=== PATIENT | male | born 1980 | race Caucasian/White ===

== ENCOUNTER 2020-05-16 12:34 | Outpatient (REF) | payer OTHER, SELFPAY | END 2020-05-16 12:35 | disposition home or self-care (01) | LOC: HO.LAB 12:34 | PROVIDERS: Visit Provider Internal Medicine | DX: Z20.828 Contact with and (suspected) exposure to other viral communicable diseases (principal) | CPT/HCPCS: C9803; U0003 ==

== ENCOUNTER 2020-07-26 16:13 | Emergency (ER) | payer OTHER, SELFPAY ==
--- NOTE | ~2020-07-26 | CT_ITS ---
EXAMINATION: CT ABDOMEN AND PELVIS WITHOUT CONTRAST CLINICAL INFORMATION: Left-sided abdominal pain and flank pain. COMPARISON: None TECHNIQUE: Multidetector volumetric imaging was performed from the superior aspect of the liver through the pubic symphysis. Sagittal and coronal reformatted images were obtained on the technologist's workstation. This CT examination was performed using dose optimization techniques as appropriate, variously including the following: *Automated exposure control *Adjustment of mA and/or kV according to patient size (this includes techniques or standardized protocols for targeted exams where dose is matched to indication/reason for exam; i.e. extremities or head) *Use of iterative reconstruction technique DLP: 533 mGy-cm FINDINGS: LUNG BASES: The visualized lung bases are unremarkable. LIVER, GALLBLADDER, AND BILIARY TREE: The liver is normal in size, shape, and attenuation. No focal hepatic lesion or biliary ductal dilatation is present. The gallbladder is unremarkable with no evidence of radiopaque gallstones, gallbladder wall thickening, or obvious pericholecystic inflammatory changes. PANCREAS: Unremarkable. A tiny faint jasmin of calcification is seen in the tail of the pancreas (3:24). No evidence of pancreatitis. SPLEEN: Unremarkable. Small 1 cm hypodensity noted in the spleen (3:23). ADRENAL GLANDS: Unremarkable. KIDNEYS AND URETERS: The kidneys are normal in size, shape, and attenuation. No hydronephrosis, hydroureter, or calculi seen. No perinephric stranding. BLADDER: Unremarkable. GASTROINTESTINAL TRACT: Diverticular changes are present in the colon. At the junction of the descending colon and sigmoid colon there is an area of thickening and pericolonic inflammatory changes consistent with acute diverticulitis. At the time of the 02/03/2019 study, similar findings were present in this area although it appears significantly worse on today's study. The small and large bowel are otherwise unremarkable. The appendix is unremarkable. ABDOMINAL WALL: No significant hernia is appreciated. LYMPH NODES: Normal. VASCULAR: Unremarkable. PELVIC VISCERA: Unremarkable. OSSEOUS STRUCTURES: Unremarkable. CT/CT abdomen pelvis wo con IMPRESSION: Recurrent uncomplicated diverticulitis at the junction of the sigmoid and descending colon. No free air or pericolonic fluid collections are seen. Other incidental findings as described above.
[2020-07-26 16:16] VITALS: BP 135/83; PULSE 63; RESP 18; TEMP 36.6; O2SAT 96; BMI 26.6
--- NOTE | 2020-07-26 16:43 | ED.ABDPAIN ---
HPI - Abdominal Pain General Chief Complaint: Abdominal Pain Stated Complaint: Abdominal pain/Flank pain Time Seen by Provider: 07/26/20 16:43 History of Present Illness HPI narrative: 40-year-old male who denies significant past medical history presents with complaint of left-sided abdomen and flank pain going on for past 3 days slightly and progressively getting worse with associated nausea but no vomiting. States also feels like not able to fully void due to the pain. He denies any hematuria or dysuria. No fever. No changes in stool caliber or rectal bleeding. MD elicited complaint: abdominal pain Pertinent past history: none Pain Consistency: constant Location: LLQ Severity: moderate Quality: aching Radiation: LUQ and L flank Migration to: L flank Exacerbating factors: nothing Relieving factors: nothing Associated symptoms: nausea Treatments prior to arrival: other (Motrin) Related Data Previous Rx's Medication Instructions Recorded ciprofloxacin HCl [Cipro] 500 mg PO BID 7 Days #14 tab 07/26/20 metronidazole [Flagyl] 500 mg PO BID 7 Days #14 tab 07/26/20 oxycodone 5 mg PO Q8H PRN 3 Days #10 tab 07/26/20 Allergies Allergy/AdvReac Type Severity Reaction Status Date / Time No Known Allergies Allergy Unverified 02/11/20 16:18 [No Known Allergies*] Review of Systems Review of Systems Constitutional: No Weight loss, No Fever, No Chills, No Night Sweats, No Fatigue, No Malaise ENT/Mouth: No Hearing loss, No Ear Pain, No Nasal Congestion, No Sinus Pain, No Hoarseness, No sore throat, No Rhinorrhea, No Swallowing Difficulty Eyes: No Eye Pain, No Swelling, No Redness, No Foreign Body, No Discharge, No Vision Changes Cardiovascular: No Chest Pain, No SOB, No Dyspnea on Exertion, No Orthopnea, No Edema, No Palpitations Respiratory: No Cough, No Sputum, No Wheezing, No Smoke Exposure, No Dyspnea Gastrointestinal: As noted per HPI, No Hematochezia, No Melena Genitourinary: No Dysuria, No Urinary Frequency, No Hematuria, No Urinary Incontinence, No Urgency, No Flank Pain, No Urinary Flow Changes, No Hesitancy Musculoskeletal: No joint pain, No Myalgias, No Joint Swelling Skin: No Skin Lesions, No rash Neuro: No Weakness, No Numbness, No Paresthesias, No Loss of Consciousness, No Dizziness, No Headache Psych: No Social Issues Heme/Lymph: No Bruising, No Bleeding,No Lymphadenopathy Endocrine: No Polyuria, No Polydipsia, No Temperature Intolerance Yes all other systems are reviewed and are negative Physical Exam Vital Signs: Vital Signs: Last Vital Signs Temp 97.9 F 07/26/20 16:16 Pulse 63 07/26/20 16:16 Resp 18 07/26/20 16:16 BP 135/83 07/26/20 16:16 Pulse Ox 96 07/26/20 16:16 Body Mass Index 26.6 Review Const: General: cooperative, healthy appearing, comfortable and acute distress (Appears in pain) mild; No intoxicated appearing Nutritional Appearance: average body habitus Orientation/consciousness: patient oriented x3 HENMT: Head: Yes normal to inspection Ears: hearing grossly normal bilaterally Eyes: General: appearance normal, both eyes and all related structures Visual Henderson: normal visual henderson by confrontation Neck: Neck: Yes normal visual inspection, No positive Brudzinski's sign, No positive Kernig's sign and No tender Thyroid: Thyroid normal Chest: Chest palpation & inspection: normal inspection of the chest Resp: Effort & Inspection: normal respiratory effort Auscultation: clear to auscultation bilaterally Cardio: Jugular venous distension: no JVD Rhythm: regular rhythm Heart sounds: S1 normal heart sound present and S2 normal heart sound present GI: Inspection: Yes normal to inspection Palpation (GI): Soft to palpation Percussion: Yes normal to percussion Auscultation: normal bowel sounds : General: Yes no CVA tenderness Back/Spine/Pelvis: Back: no CVA tenderness Skin: General skin exam: no rashes or lesions noted Neuro: General: patient oriented x3 Extrem: General: Yes normal to inspection MDM - Abdominal Pain MDM Narrative Medical decision making narrative: Labs overall stable CT of the abdomen pelvis shows diverticular disease without evidence of abscess or perforation. Feels much comfortable now minimal pain. Vitals stable. Abdominal exam without evidence peritonitis. Will discharge home with antibiotic, pain medicine and GI follow-up. He feels comfortable plan. Stable for discharge. Differential Diagnosis Differential diagnosis: Likely abdominal pain, calculus of kidney, diverticulitis and renal colic; Unlikely aortic dissection, acute appendicitis, bowel perforation, constipation, endometriosis, gastroenteritis, gastritis, mesenteric ischemia and small bowel obstruction Medical Records Attestation: I reviewed the patient's medical records. Medical records narrative: There is no access to hold the EMR on this patient for some reason the system will allow access. After receiving the CT scan results which read recurrent uncomplicated diverticulitis I asked him if you had this before again and he said now he remembers that he has similar like this a year ago so. Lab Data Attestation: I reviewed the patient's lab results. Result diagrams: 07/26/20 17:08 07/26/20 17:08 Labs: Lab Results 07/26/20 07/26/20 07/26/20 Range/Units 17:08 17:08 18:53 WBC 8.7 (4.8-10.8) X10*3/uL RBC 5.42 (4.60-5.80) X10*6/uL Hgb 16.4 (14.0-18.0) g/dl Hct 50.0 (42-52) % MCV 92.3 (80-98) fL MCH 30.3 (27.0-33.0) pg MCHC 32.8 (31.0-36.0) g/dl RDW 11.9 (11.0-16.0) % Plt Count 270 (160-400) X10*3/uL MPV 9.3 L (9.4-12.4) fL Immature Gran % (Auto) 0.2 (0.0-0.4) % Neut % (Auto) 76.2 H (45-73) % Lymph % (Auto) 15.5 L (20-40) % Cameron % (Auto) 6.9 (2-11) % Eos % (Auto) 1.0 (0-4) % Baso % (Auto) 0.2 (0-2) % Lymph # (Auto) 1.4 (1.2-4.9) X10*3/uL Cameron # (Auto) 0.6 (0.1-1.2) X10*3/uL Eos # (Auto) 0.1 (0.0-0.4) X10*3/uL Baso # (Auto) 0.0 (0.0-0.2) X10*3/uL Abs Immat Gran (auto) 0.02 (0.00-0.03) X10*3/uL Absolute Neuts (auto) 6.6 (2.0-8.3) X10*3/uL Absolute Nucleated RBC 0.000 (0.0-0.012) X10*3/uL Nucleated RBC % (auto) 0.0 (0.0-0.2) /100WBC Sodium 140 (135-145) mmol/L Potassium 4.4 (3.3-5.1) mmol/L Chloride 104 (96-108) mmol/L Carbon Dioxide 28 (22-29) mmol/L Anion Gap 12 (12-20) BUN 8 L (9-16) mg/dL Creatinine 1.14 (0.5-1.4) mg/dL Estim Creat Clear Calc 85.2 Estimated GFR > 60 Random Glucose 99 (60-115) mg/dL Calcium 9.1 (8.4-10.2) mg/dL Total Bilirubin 1.0 (0.0-1.0) mg/dL AST 34 (5-37) U/L ALT 34 (0-40) U/L Alkaline Phosphatase 84 (39-117) U/L Total Protein 7.1 (6.5-8.0) g/dL Albumin 4.2 (3.5-5.0) g/dL Urine Color YELLOW Urine Appearance CLEAR Urine pH 7.0 (5.0-8.0) Ur Specific [place] 1.015 (1.005-1.025) Urine Protein NEG (NEG-TRACE) MG/DL Urine Glucose (UA) NEG (NEG) MG/DL Urine Ketones NEG (NEG) MG/DL Urine Blood NEG (NEG) Urine Nitrite NEG (NEG) Ur Leukocyte Esterase NEG (NEG) Urine RBC 0-2 (0) /HPF Urine WBC 0-2 (0-4) /HPF Ur Squamous Epith Cells TRACE /LPF Urine Bacteria TRACE /LPF Discharge Plan Discharge Clinical Impression: Diverticulitis Patient Disposition: Home, Self-Care Instructions: Diverticulitis (ED) Prescriptions: New metronidazole [Flagyl] 500 mg tablet 500 mg PO BID 7 Days Qty: 14 RF: 0 ciprofloxacin HCl [Cipro] 500 mg tablet 500 mg PO BID 7 Days Qty: 14 RF: 0 oxycodone 5 mg tablet 5 mg PO Q8H PRN (Reason: pain) 3 Days Qty: 10 RF: 0 Referrals: Tsering Huston MD [Physician] - 1 week Interventions: ED Discharge Assessment Last Done: 07/26/20 20:21 Discharge Date/Time: 07/26/20 20:21 [facility] Past Medical History Medical History (Updated 07/27/20 @ 00:00 by Background Daemon) No known health problems Social History Social History Advance Directives: No Advance Directives Information Provided: Yes
[2020-07-26] MEDS: 0.9 % Sodium Chloride 1,000 ML 999 ML IV (17:09)
[2020-07-26 17:14] LABS: Basophils Percent Auto 0.2 % (0-2); Eosinophils Absolute Auto 0.1 X10*3/uL (0.0-0.4); Hemoglobin 16.4 g/dl (14.0-18.0); Imm Gran Abs Auto 0.02 X10*3/uL (0.00-0.03); Imm Gran Pct Auto 0.2 % (0.0-0.4); Lymphocytes Absolute Auto 1.4 X10*3/uL (1.2-4.9); Lymphocytes Percent Auto 15.5 % (20-40); MANUAL DIFF FLAG NO; Mean Corpuscular HGB Conc 32.8 g/dl (31.0-36.0); Mean Corpuscular Hemoglobin 30.3 pg (27.0-33.0); Mean Corpuscular Volume 92.3 fL (80-98); Mean Platelet Volume 9.3 fL (9.4-12.4); Monocytes Absolute Auto 0.6 X10*3/uL (0.1-1.2); Monocytes Percent Auto 6.9 % (2-11); Neutrophils Absolute Auto 6.6 X10*3/uL (2.0-8.3); Neutrophils Percent Auto 76.2 % (45-73); Platelet Count 270 X10*3/uL (160-400); Red Blood Count 5.42 X10*6/uL (4.60-5.80); Red Cell Distribution Width 11.9 % (11.0-16.0); White Blood Count 8.7 X10*3/uL (4.8-10.8)
[2020-07-26 17:49] LABS: Alanine Aminotransferase 34 U/L (0-40); Albumin Level 4.2 g/dL (3.5-5.0); Alkaline Phosphatase 84 U/L (39-117); Anion Gap 12 (12-20); Aspartate Amino Transferase 34 U/L (5-37); Blood Urea Nitrogen 8 mg/dL (9-16); Calcium 9.1 mg/dL (8.4-10.2); Carbon Dioxide 28 mmol/L (22-29); Chloride 104 mmol/L (96-108); Creatinine Clr Calc Pharmacy 85.2; Estimated Glomerular Filt Rate > 60; Glucose Random 99 mg/dL (60-115); Potassium 4.4 mmol/L (3.3-5.1); Sodium 140 mmol/L (135-145); Total Protein 7.1 g/dL (6.5-8.0)
[2020-07-26 19:13] LABS: Glucose Urine UA NEG (NEG); Leukocyte Esterase Urine NEG (NEG); Nitrite Urine NEG (NEG); Specific Gravity - Urine 1.015 (1.005-1.025); Urine Blood NEG (NEG); Urine Ketones NEG (NEG); Urine Protein NEG (NEG-TRACE)
[2020-07-26 19:24] LABS: Appearance Urine CLEAR; Bacteria Urine TRACE /LPF; Color Urine YELLOW; RBC Urine 0-2 /HPF (0); Squamous Epithelial Cell Urine TRACE /LPF; WBC Urine 0-2 /HPF (0-4)
== END 2020-07-26 20:21 | disposition home or self-care (01) ==
PROVIDERS: Nurse Practitioner Primary Care; Emergency Provider Emergency Medicine; PCP Internal Medicine
DX: K57.32 Diverticulitis of large intestine without perforation or abscess without bleeding (principal); R10.12 Left upper quadrant pain; Z79.899 Other long term (current) drug therapy
CPT/HCPCS: 36415; 74176; 80053; 81001; 85025; 96360; 99283; 99284

== ENCOUNTER 2020-08-24 10:46 | Outpatient (REF) | payer OTHER, SELFPAY ==
[2020-08-24 13:19] LABS: SARS COV2 PCR INHOUSE NEGATIVE (Negative)
== END 2020-08-24 10:47 | disposition home or self-care (01) ==
LOC: HO.LAB 10:46
PROVIDERS: Visit Provider Internal Medicine
DX: Z20.822 Contact with and (suspected) exposure to COVID-19 (principal)
CPT/HCPCS: C9803; U0003

== ENCOUNTER 2021-02-08 09:21 | Outpatient (REF) | payer OTHER, SELFPAY ==
[2021-02-08 10:09] LABS: MANUAL DIFF FLAG NO
[2021-02-08 10:11] LABS: Basophils Percent Auto 0.3 % (0-2); Eosinophils Absolute Auto 0.2 X10*3/uL (0.0-0.4); Eosinophils Percent Auto 3.1 % (0-4); Hematocrit 46.3 % (42-52); Hemoglobin 15.3 g/dl (14.0-18.0); Imm Gran Abs Auto 0.02 X10*3/uL (0.00-0.03); Imm Gran Pct Auto 0.3 % (0.0-0.4); Lymphocytes Absolute Auto 1.9 X10*3/uL (1.2-4.9); Lymphocytes Percent Auto 30.7 % (20-40); Mean Corpuscular Volume 90.8 fL (80-98); Mean Platelet Volume 9.6 fL (9.4-12.4); Monocytes Absolute Auto 0.5 X10*3/uL (0.1-1.2); Monocytes Percent Auto 8.8 % (2-11); Neutrophils Absolute Auto 3.5 X10*3/uL (2.0-8.3); Neutrophils Percent Auto 56.8 % (45-73); Platelet Count 262 X10*3/uL (160-400); Red Cell Distribution Width 11.6 % (11.0-16.0); White Blood Count 6.2 X10*3/uL (4.8-10.8)
[2021-02-08 10:40] LABS: Alanine Aminotransferase 31 U/L (0-40); Albumin Level 4.4 g/dL (3.5-5.0); Alkaline Phosphatase 53 U/L (39-117); Anion Gap 14 (12-20); Aspartate Amino Transferase 25 U/L (5-37); Bilirubin Total 0.9 mg/dL (0.0-1.0); Blood Urea Nitrogen 11 mg/dL (9-16); Calcium 9.5 mg/dL (8.4-10.2); Carbon Dioxide 27 mmol/L (22-29); Chloride 106 mmol/L (96-108); Cholesterol 197 mg/dL; Estimated Glomerular Filt Rate > 60; Glucose Fasting 91 mg/dL (60-99); HDL Cholesterol 40 mg/dL; LDL Cholesterol Calculated 134 mg/dl; Potassium 4.2 mmol/L (3.3-5.1); Sodium 143 mmol/L (135-145); Total Protein 7.2 g/dL (6.5-8.0); Triglycerides 117 mg/dL
[2021-02-08 11:04] LABS: Thyroid Stimulating Hormone 2.64 uIU/mL (0.32-4.0)
== END 2021-02-08 09:22 | disposition home or self-care (01) ==
LOC: HO.LAB 09:21
PROVIDERS: PCP Internal Medicine; Visit Provider Internal Medicine
DX: Z00.00 Encounter for general adult medical examination without abnormal findings (principal); E11.9 Type 2 diabetes mellitus without complications; E03.9 Hypothyroidism, unspecified
CPT/HCPCS: 36415; 80053; 80061; 84443; 85025

== ENCOUNTER 2021-03-15 08:06 | Emergency (ER) | payer OTHER, SELFPAY ==
--- NOTE | ~2021-03-15 | CT_ITS ---
EXAMINATION: CT ABDOMEN AND PELVIS WITH CONTRAST CLINICAL INFORMATION: Left lower quadrant pain. History of diverticulitis. COMPARISON: CT abdomen and pelvis from 07/26/2020 TECHNIQUE: Multidetector volumetric images were obtained from the superior aspect of the liver through the pubic symphysis following administration 85 mL of Omnipaque 350 intravenous contrast. Sagittal and coronal reformatted images were obtained on the technologist's workstation. Oral contrast: No This CT examination was performed using dose optimization techniques as appropriate, variously including the following: *Automated exposure control *Adjustment of mA and/or kV according to patient size (this includes techniques or standardized protocols for targeted exams where dose is matched to indication/reason for exam; i.e. extremities or head) *Use of iterative reconstruction technique DLP: 562 mGy-cm FINDINGS: LUNG BASES: Normal. No pulmonary consolidation or pleural effusion at either lung base. LIVER: The liver has normal size, shape, and attenuation. No evidence of liver mass. GALLBLADDER AND BILIARY TREE: Gallbladder is without radiopaque stones, wall thickening or pericholecystic fluid. No bile duct dilatation. PANCREAS: Normal. No edema, pancreatic ductal dilatation or mass. SPLEEN: Normal. ADRENAL GLANDS: Normal. KIDNEYS AND URETERS: The kidneys have normal size and cortical thickness. No solid mass or perinephric fluid collection. No urolithiasis or hydroureteronephrosis. BLADDER: Normal. No calculi or wall thickening. BOWEL AND PERITONEUM: Stomach and small bowel are unremarkable. The appendix is normal. Again noted is diverticulosis of the colon. There is a short segment of wall thickening and fat stranding of the proximal sigmoid colon consistent with acute diverticulitis. This region of bowel inflammation corresponds to the site of diverticulitis observed on 07/26/2020. No bowel perforation or abscess. ABDOMINAL WALL: Unremarkable. VASCULATURE: Unremarkable. LYMPH NODES: No pathologic sized lymph nodes in the abdomen or pelvis. No inguinal lymphadenopathy. PELVIC VISCERA: Prostate land and seminal vesicles are unremarkable. Trace free fluid is present within the left pelvis. SKELETAL: Unremarkable. CT/CT abdomen pelvis w con IMPRESSION: There is recurrent diverticulitis of the proximal sigmoid colon. No evidence of bowel perforation or abscess. No bowel obstruction.
[2021-03-15 08:18] VITALS: BP 138/70; PULSE 73; RESP 18; TEMP 36.6; O2SAT 97; BMI 29.5
--- NOTE | 2021-03-15 08:33 | ED_ITS ---
HPI - Abdominal Pain General Chief Complaint: Abdominal Pain Stated Complaint: ABD PAIN Time Seen by Provider: 03/15/21 08:20 Source: patient Mode of arrival: ambulatory Limitations: no limitations History of Present Illness HPI narrative: 40-year-old male who presents emergency department for evaluation of abdominal pain. States the pain came on suddenly at 4:00 a.m. and woke him from sleep. States the pain is a pressure-like pain and the pain has been waxing and waning in intensity and is 10/10 at its worst. The patient points to his left lower quadrant when asked to localize the pain. States that he had similar pain in July of 2020 and he was diagnosed with diverticulitis at that time and treated with Cipro and Flagyl. The patient states his last bowel movement was 2 days prior. He denied frequency, urgency or dysuria. He denied fever, chills, nausea or vomiting. He states that his pain is currently 10/10 in the emergency department. Related Data Previous Rx's Medication Instructions Recorded levofloxacin 500 mg tablet 500 mg PO DAILY 10 Days #10 tab 03/15/21 metronidazole 500 mg tablet 500 mg PO TID 10 Days #30 tab 03/15/21 Allergies Allergy/AdvReac Type Severity Reaction Status Date / Time No Known Allergies Allergy Verified 02/03/21 13:00 [No Known Allergies*] Review of Systems Review of Systems Yes all other systems are reviewed and are negative Physical Exam Vital Signs: Vital Signs: Last Vital Signs Temp 97.6 F 03/15/21 11:03 Pulse 56 03/15/21 11:03 Resp 18 03/15/21 11:03 BP 125/70 03/15/21 11:03 Pulse Ox 95 03/15/21 11:03 Body Mass Index 29.5 Const: General: cooperative and no acute distress Orientation/consciousness: oriented to person and oriented to place Limitations: no limitations HENMT: Head: Yes normal to inspection, Yes normocephalic and Yes atraumatic Ears: external ears normal General nose exam: Normal external nose present Face and sinus: Yes normal facial exam Mouth: Normal oral and palatal mucosa present Throat: Yes posterior oropharynx normal Eyes: General: appearance normal, both eyes and all related structures Pupils: Equal, round and reactive pupils present Neck: Neck: Yes normal visual inspection, Yes no lymphadenopathy, Yes trachea midline and Yes supple Chest: Chest palpation & inspection: normal inspection of the chest and normal palpation of entire chest wall Resp: Effort & Inspection: normal respiratory effort and able to speak in complete sentences Auscultation: clear to auscultation bilaterally Cardio: Rate: regular rate Rhythm: regular rhythm Heart sounds: S1 normal heart sound present, S2 normal heart sound present and no murmurs GI: Inspection: Yes normal to inspection Palpation (GI): Soft to palpation, Tenderness to palpation present (GI) in the LUQ (Moderate to severe) and no guarding Auscultation: normal bowel sounds : General: Yes no CVA tenderness Back/Spine/Pelvis: Back: no CVA tenderness Skin: General skin exam: no rashes or lesions noted Neuro: General: oriented to person and oriented to place Cranial nerves: Yes CN's II-XII intact bilaterally and Yes Equal, round and reactive pupils present Cognition (Neuro): normal cognition Motor exam (neuro): 5/5 motor strength present throughout Extrem: General: Yes normal to inspection Psych: Appearance: grossly normal Speech and movement: Normal speech and movement present Affect: normal affect Attitude: cooperative Thought process: Normal thought process present Thought content: Normal thought content present Course Course Course Narrative: 40-year-old male who presents emergency department for evaluation of sudden onset of left lower quadrant abdominal pain that occurred at 4:00 a.m. and woke him up from sleep. The pain is been a constant pain which waxes and wanes in intensity and pain is currently 10/10 on presentation to the emergency department. Patient had similar pain in July of 2020 and was diagnosed with diverticulitis at that time. The patient's vital signs were normal. The patient had moderate to severe left lower quadrant tenderness. Concerned that he may have diverticulitis verses a perforation. I ordered the following workup on the patient: CBC, CMP, lipase, lactate, urinalysis. CT scan of the abdomen pelvis with IV contrast. Patient's pain was treated with morphine 4 mg IV and Zofran 4 mg IV. Is also ordered to get normal saline x1 L. 1238: The patient initially got some improvement with his IV morphine but his pain is returned. Patient was ordered to get Toradol 30 mg IV and Zofran 4 mg IV. Patient's laboratory evaluation was unremarkable, COVID-[address] scan of the abdomen pelvis with IV contrast did reveal uncomplicated sigmoid diverticulitis. The patient was given Levaquin 500 mg orally and metronidazole 500 mg orally. Patient is given prescription for Levaquin 500 mg once a day for 10 days and metronidazole 5 mg 3 times a day for 10 days. He is advised to take Tylenol and ibuprofen for pain. He was given verbal and printed instructions and discharged home MDM - Abdominal Pain Lab Data Result diagrams: 03/15/21 08:40 03/15/21 09:06 Labs: Lab Results 03/15/21 03/15/21 03/15/21 Range/Units 08:40 08:40 09:06 WBC 7.6 (4.8-10.8) X10*3/uL RBC 4.93 (4.60-5.80) X10*6/uL Hgb 15.1 (14.0-18.0) g/dl Hct 44.9 (42-52) % MCV 91.1 (80-98) fL MCH 30.6 (27.0-33.0) pg MCHC 33.6 (31.0-36.0) g/dl RDW 11.8 (11.0-16.0) % Plt Count 252 (160-400) X10*3/uL MPV 9.1 L (9.4-12.4) fL Immature Gran % (Auto) 0.4 (0.0-0.4) % Neut % (Auto) 65.9 (45-73) % Lymph % (Auto) 22.2 (20-40) % Barnes % (Auto) 9.5 (2-11) % Eos % (Auto) 1.7 (0-4) % Baso % (Auto) 0.3 (0-2) % Lymph # (Auto) 1.7 (1.2-4.9) X10*3/uL Barnes # (Auto) 0.7 (0.1-1.2) X10*3/uL Eos # (Auto) 0.1 (0.0-0.4) X10*3/uL Baso # (Auto) 0.0 (0.0-0.2) X10*3/uL Abs Immat Gran (auto) 0.03 (0.00-0.03) X10*3/uL Absolute Neuts (auto) 5.0 (2.0-8.3) X10*3/uL Absolute Nucleated RBC 0.000 (0.0-0.012) X10*3/uL Nucleated RBC % (auto) 0.0 (0.0-0.2) /100WBC Sodium 140 (135-145) mmol/L Potassium 4.1 (3.3-5.1) mmol/L Chloride 106 (96-108) mmol/L Carbon Dioxide 27 (22-29) mmol/L Anion Gap 11 L (12-20) BUN 7 L (9-16) mg/dL Creatinine 1.13 (0.5-1.4) mg/dL Estim Creat Clear Calc 95.7 Estimated GFR > 60 Random Glucose 106 (60-115) mg/dL Lactic Acid 0.9 (0.5-2.0) mmol/L Calcium 8.7 D (8.4-10.2) mg/dL Total Bilirubin 1.4 H (0.0-1.0) mg/dL AST 24 (5-37) U/L ALT 29 (0-40) U/L Alkaline Phosphatase 70 D (39-117) U/L Total Protein 6.5 (6.5-8.0) g/dL Albumin 4.0 (3.5-5.0) g/dL Lipase 41 (8-78) U/L Urine Color Urine Appearance Urine pH (5.0-8.0) Ur Specific [place] (1.005-1.025) Urine Protein (NEG-TRACE) MG/DL Urine Glucose (UA) (NEG) MG/DL Urine Ketones (NEG) MG/DL Urine Blood (NEG) Urine Nitrite (NEG) Ur Leukocyte Esterase (NEG) 03/15/21 Range/Units 10:59 WBC (4.8-10.8) X10*3/uL RBC (4.60-5.80) X10*6/uL Hgb (14.0-18.0) g/dl Hct (42-52) % MCV (80-98) fL MCH (27.0-33.0) pg MCHC (31.0-36.0) g/dl RDW (11.0-16.0) % Plt Count (160-400) X10*3/uL MPV (9.4-12.4) fL Immature Gran % (Auto) (0.0-0.4) % Neut % (Auto) (45-73) % Lymph % (Auto) (20-40) % Barnes % (Auto) (2-11) % Eos % (Auto) (0-4) % Baso % (Auto) (0-2) % Lymph # (Auto) (1.2-4.9) X10*3/uL Barnes # (Auto) (0.1-1.2) X10*3/uL Eos # (Auto) (0.0-0.4) X10*3/uL Baso # (Auto) (0.0-0.2) X10*3/uL Abs Immat Gran (auto) (0.00-0.03) X10*3/uL Absolute Neuts (auto) (2.0-8.3) X10*3/uL Absolute Nucleated RBC (0.0-0.012) X10*3/uL Nucleated RBC % (auto) (0.0-0.2) /100WBC Sodium (135-145) mmol/L Potassium (3.3-5.1) mmol/L Chloride (96-108) mmol/L Carbon Dioxide (22-29) mmol/L Anion Gap (12-20) BUN (9-16) mg/dL Creatinine (0.5-1.4) mg/dL Estim Creat Clear Calc Estimated GFR Random Glucose (60-115) mg/dL Lactic Acid (0.5-2.0) mmol/L Calcium (8.4-10.2) mg/dL Total Bilirubin (0.0-1.0) mg/dL AST (5-37) U/L ALT (0-40) U/L Alkaline Phosphatase (39-117) U/L Total Protein (6.5-8.0) g/dL Albumin (3.5-5.0) g/dL Lipase (8-78) U/L Urine Color YELLOW Urine Appearance CLEAR Urine pH 6.0 (5.0-8.0) Ur Specific [place] <= 1.005 (1.005-1.025) Urine Protein NEG (NEG-TRACE) MG/DL Urine Glucose (UA) NEG (NEG) MG/DL Urine Ketones NEG (NEG) MG/DL Urine Blood NEG (NEG) Urine Nitrite NEG (NEG) Ur Leukocyte Esterase NEG (NEG) Discharge Plan Discharge Clinical Impression: Diverticulitis Patient Disposition: Home, Self-Care Instructions: Diverticulitis (ED) Additional Instructions: Your blood work was unremarkable. The CT scan is consistent with diverticulitis of the left side of your colon (sigmoid colon) Take Levaquin (levofloxacin) 500 mg pills, 1 pill once a day for 10 days. Your given a dose here in the emergency department, take your next dose tomorrow at noon time. Take Flagyl (metronidazole) 500 mg pills, take 1 pill 3 times a day (every 6 hours while you are awake) for 10 days. Take ibuprofen 200 mg pills, 3 pills every 6 hours as needed for pain. Take Tylenol (acetaminophen) 500 mg pills, 2 pills every 4 to 6 hours as needed for pain. Follow-up with your doctor in 2 days. Please return to the emergency department if your symptoms get worse or if you develop any symptoms that are concerning to you. Prescriptions: New metronidazole 500 mg tablet 500 mg PO TID 10 Days Qty: 30 RF: 0 levofloxacin 500 mg tablet 500 mg PO DAILY 10 Days Qty: 10 RF: 0 PMFSH Past Medical History PMFSH Narrative: Past medical history: See below, patient also has history of diverticulitis diagnosed 07/2020. Social history: The patient states that he smokes cigarettes on the weekends only media smoked for 25 years. The patient states that he drinks alcohol only on the weekends. He states that he drinks 24 beers over a weekend. He denies drug use. Medical History Alcohol abuse Depression No known health problems Surgical History History of left knee surgery History of umbilical hernia repair Family History Family History Mother Mental health disorder Substance use disorder Father Mental health disorder Substance use disorder Social History Social History Housing: Apartment Alcohol intake: current Alcohol intake frequency: a few times a month Patient Tobacco Use Status: Current someday Tobacco user Tobacco use type: Cigarette e-Cigarette/Vaping Use: Never Used Second Hand Smoke Exposure: No Use of substances other than those prescribed or required for medical reasons: No Advance Directives: No Advance Directives Information Provided: Yes service: No Current occupational status: unemployed
[2021-03-15] MEDS: 0.9 % Sodium Chloride 1,000 ML 999 ML IV (08:44)
[2021-03-15] MEDS: ondansetron HCL 4 MG/2 ML VIAL IVPUSH (08:45)
[2021-03-15 08:46] LABS: MANUAL DIFF FLAG NO
[2021-03-15] MEDS: Morphine Sulfate 4 MG/ML CARTRIDGE IVPUSH (08:46)
[2021-03-15 08:50] LABS: Basophils Percent Auto 0.3 % (0-2); Eosinophils Absolute Auto 0.1 X10*3/uL (0.0-0.4); Eosinophils Percent Auto 1.7 % (0-4); Hematocrit 44.9 % (42-52); Hemoglobin 15.1 g/dl (14.0-18.0); Imm Gran Abs Auto 0.03 X10*3/uL (0.00-0.03); Imm Gran Pct Auto 0.4 % (0.0-0.4); Lymphocytes Absolute Auto 1.7 X10*3/uL (1.2-4.9); Lymphocytes Percent Auto 22.2 % (20-40); Mean Corpuscular HGB Conc 33.6 g/dl (31.0-36.0); Mean Corpuscular Hemoglobin 30.6 pg (27.0-33.0); Mean Corpuscular Volume 91.1 fL (80-98); Mean Platelet Volume 9.1 fL (9.4-12.4); Monocytes Absolute Auto 0.7 X10*3/uL (0.1-1.2); Monocytes Percent Auto 9.5 % (2-11); Neutrophils Percent Auto 65.9 % (45-73); Platelet Count 252 X10*3/uL (160-400); Red Blood Count 4.93 X10*6/uL (4.60-5.80); Red Cell Distribution Width 11.8 % (11.0-16.0); White Blood Count 7.6 X10*3/uL (4.8-10.8)
[2021-03-15 08:57] LABS: Lactic Acid 0.9 mmol/L (0.5-2.0)
[2021-03-15 09:54] LABS: Alanine Aminotransferase 29 U/L (0-40); Alkaline Phosphatase 70 U/L (39-117); Anion Gap 11 (12-20); Aspartate Amino Transferase 24 U/L (5-37); Bilirubin Total 1.4 mg/dL (0.0-1.0); Blood Urea Nitrogen 7 mg/dL (9-16); Calcium 8.7 mg/dL (8.4-10.2); Carbon Dioxide 27 mmol/L (22-29); Chloride 106 mmol/L (96-108); Creatinine Clr Calc Pharmacy 95.7; Estimated Glomerular Filt Rate > 60; Glucose Random 106 mg/dL (60-115); Lipase 41 U/L (8-78); Potassium 4.1 mmol/L (3.3-5.1); Sodium 140 mmol/L (135-145); Total Protein 6.5 g/dL (6.5-8.0)
[2021-03-15 11:03] VITALS: BP 125/70; PULSE 56; RESP 18; TEMP 36.4; O2SAT 95
[2021-03-15 11:19] LABS: Appearance Urine CLEAR; Color Urine YELLOW; Glucose Urine UA NEG (NEG); Leukocyte Esterase Urine NEG (NEG); Nitrite Urine NEG (NEG); Specific Gravity - Urine <= 1.005 (1.005-1.025); Urine Blood NEG (NEG); Urine Ketones NEG (NEG); Urine Protein NEG (NEG-TRACE)
[2021-03-15] MEDS: iohexoL 350 MG/ML 100 ML INFUS..BTL 85 ML IV (11:30)
[2021-03-15] MEDS: metroNIDAZOLE 500 MG TABLET PO (12:50)
[2021-03-15] MEDS: Ondansetron ODT 4 MG TAB.RAPDIS TRANSLINGU (12:50)
[2021-03-15] MEDS: Ketorolac Tromethamine 15 MG/ML VIAL 30 MG IVPUSH (12:50)
[2021-03-15] MEDS: levoFLOXacin 500 MG TABLET PO (12:50)
== END 2021-03-15 13:01 | disposition home or self-care (01) ==
PROVIDERS: Emergency Provider Emergency Medicine Emergency Medical Services; PCP Internal Medicine
DX: K57.92 Diverticulitis of intestine, part unspecified, without perforation or abscess without bleeding (principal)
CPT/HCPCS: 36415; 74177; 80053; 81003; 83605; 83690; 85025; 96361; 96374; 96375; 99284; J1885; J2270; J2405; Q9967

== ENCOUNTER 2021-05-30 12:59 | Outpatient (REF) | payer OTHER, SELFPAY ==
[2021-06-01 20:21] LABS: TS Negative Control Passed; TS Panel A 0; TS Panel B 0; TS Positive Control Passed; TSpotTB Negative (Negative)
== END 2021-05-30 13:00 | disposition home or self-care (01) ==
LOC: HO.LAB 12:59
PROVIDERS: PCP Internal Medicine; Visit Provider Internal Medicine
DX: Z11.1 Encounter for screening for respiratory tuberculosis (principal)
CPT/HCPCS: 36415; 86481

== ENCOUNTER 2021-06-02 09:39 | Outpatient (REF) | payer OTHER, SELFPAY ==
--- NOTE | ~2021-06-02 | XR_ITS ---
EXAMINATION: XR AP STANDING VIEWS OF BOTH KNEES XR LATERAL AND SUNRISE VIEWS OF THE KNEE, LEFT CLINICAL INFORMATION: Knee pain. COMPARISON: 12/05/2015 and 11/04/2015. TECHNIQUE: AP standing view of both knees as well as lateral and sunrise views of the left knee. FINDINGS: There is narrowing of both medial joint space compartments of the knees. The lateral joint spaces appear maintained. There is some subchondral cyst formation seen involving the left medial femoral articular surface. Bone islands seen within the distal right femur and proximal right tibia. There is mild spurring at the patellofemoral joint with what appears to be some mild narrowing of the lateral facet. No left knee effusion is seen. XR/XR knee standing BI IMPRESSION: Stable degenerative changes of both knees compared to study of 12/05/2015 involving the medial joint space compartments and the patellofemoral joint.
--- NOTE | ~2021-06-02 | XR_ITS ---
EXAMINATION: XR AP STANDING VIEWS OF BOTH KNEES XR LATERAL AND SUNRISE VIEWS OF THE KNEE, LEFT CLINICAL INFORMATION: Knee pain. COMPARISON: 12/05/2015 and 11/04/2015. TECHNIQUE: AP standing view of both knees as well as lateral and sunrise views of the left knee. FINDINGS: There is narrowing of both medial joint space compartments of the knees. The lateral joint spaces appear maintained. There is some subchondral cyst formation seen involving the left medial femoral articular surface. Bone islands seen within the distal right femur and proximal right tibia. There is mild spurring at the patellofemoral joint with what appears to be some mild narrowing of the lateral facet. No left knee effusion is seen. XR/XR knee LT 2V IMPRESSION: Stable degenerative changes of both knees compared to study of 12/05/2015 involving the medial joint space compartments and the patellofemoral joint.
== END 2021-06-02 09:40 | disposition home or self-care (01) ==
LOC: HO.HOSX 09:39
PROVIDERS: Visit Provider Orthopaedic Surgery
DX: M25.562 Pain in left knee (principal); M95.8 Other specified acquired deformities of musculoskeletal system; F10.10 Alcohol abuse, uncomplicated
CPT/HCPCS: 73560; 73565; 99202

== ENCOUNTER → 2021-06-30 09:59 | Outpatient (BNVA) | payer OTHER, SELFPAY | PROVIDERS: PCP Internal Medicine; Referring Provider Internal Medicine; Visit Provider Internal Medicine Gastroenterology | DX: K57.92 Diverticulitis of intestine, part unspecified, without perforation or abscess without bleeding (principal); K21.9 Gastro-esophageal reflux disease without esophagitis; R39.11 Hesitancy of micturition | CPT/HCPCS: 99202 ==

== ENCOUNTER → 2021-08-07 12:57 | Outpatient (BNVA) | payer OTHER, SELFPAY | PROVIDERS: PCP Internal Medicine; Visit Provider Orthopaedic Surgery | DX: M95.8 Other specified acquired deformities of musculoskeletal system (principal) | CPT/HCPCS: 99212 ==

== ENCOUNTER 2021-08-16 12:03 | Outpatient (REF) | payer OTHER, SELFPAY ==
--- NOTE | ~2021-08-16 | XR_ITS ---
EXAMINATION: XR THORACOLUMBAR SPINE CLINICAL INFORMATION: Dorsalgia COMPARISON: None TECHNIQUE: 3 views FINDINGS: There is mild scoliosis of dorsal spine. The vertebral heights, alignment and disc heights are normal. No visible acute fracture, dislocation or subluxation seen. No lytic process. The paravertebral soft tissues are normal. XR/XR thoracic spine 2V IMPRESSION: Mild scoliosis of dorsal spine. No visible fracture or bony abnormality seen.
== END 2021-08-16 12:04 | disposition home or self-care (01) ==
LOC: HO.XRAY 12:03
PROVIDERS: PCP Internal Medicine; Visit Provider Internal Medicine
DX: M54.9 Dorsalgia, unspecified (principal)
CPT/HCPCS: 72070

== ENCOUNTER 2021-08-22 08:53 | Outpatient (REF) | payer OTHER, SELFPAY ==
[2021-08-22 09:11] LABS: MANUAL DIFF FLAG NO
[2021-08-22 09:31] LABS: Basophils Percent Auto 0.2 % (0-2); Eosinophils Absolute Auto 0.2 X10*3/uL (0.0-0.4); Eosinophils Percent Auto 2.5 % (0-4); Hematocrit 48.7 % (42.0-52.0); Hemoglobin 15.7 g/dl (14.0-18.0); Imm Gran Abs Auto 0.01 X10*3/uL (0.00-0.03); Imm Gran Pct Auto 0.2 % (0.0-0.4); Lymphocytes Absolute Auto 1.5 X10*3/uL (1.2-4.9); Lymphocytes Percent Auto 25.5 % (20-40); Mean Corpuscular HGB Conc 32.2 g/dl (31.0-36.0); Mean Corpuscular Hemoglobin 29.8 pg (27.0-33.0); Mean Corpuscular Volume 92.6 fL (80.0-98.0); Mean Platelet Volume 9.6 fL (9.4-12.4); Monocytes Absolute Auto 0.5 X10*3/uL (0.1-1.2); Monocytes Percent Auto 8.2 % (2-11); Neutrophils Absolute Auto 3.8 x10*3/uL (2.0-8.3); Neutrophils Percent Auto 63.4 % (45-73); Platelet Count 259 X10*3/uL (160-400); Red Blood Count 5.26 X10*6/uL (4.60-5.80); Red Cell Distribution Width 11.6 % (11.0-16.0)
[2021-08-22 09:55] LABS: Alanine Aminotransferase 29 U/L (0-40); Albumin Level 4.2 g/dL (3.5-5.0); Alkaline Phosphatase 55 U/L (39-117); Anion Gap 11 (12-20); Aspartate Amino Transferase 22 U/L (5-37); Bilirubin Total 0.5 mg/dL (0.0-1.0); Blood Urea Nitrogen 10 mg/dL (9-16); Calcium 9.6 mg/dL (8.4-10.2); Carbon Dioxide 28 mmol/L (22-29); Chloride 106 mmol/L (96-108); Cholesterol 221 mg/dL; Estimated Glomerular Filt Rate > 60; Glucose Fasting 98 mg/dL (60-99); HDL Cholesterol 38 mg/dL; LDL Cholesterol Calculated 150 mg/dl; Potassium 4.5 mmol/L (3.3-5.1); Sodium 140 mmol/L (135-145); Total Protein 6.9 g/dL (6.5-8.0); Triglycerides 168 mg/dL
[2021-08-22 10:12] LABS: ~HepC Num1 0.08 S/CO (0.00-0.79); ~Hepatitis C Antibody Nonreactive (Nonreactive)
== END 2021-08-22 08:54 | disposition home or self-care (01) ==
LOC: HO.LAB 08:53
PROVIDERS: PCP Internal Medicine; Visit Provider Internal Medicine
DX: Z00.00 Encounter for general adult medical examination without abnormal findings (principal); Z13.0 Encounter for screening for diseases of the blood and blood-forming organs and certain disorders involving the immune mechanism; Z11.59 Encounter for screening for other viral diseases; Z13.220 Encounter for screening for lipoid disorders
CPT/HCPCS: 36415; 80053; 80061; 85025; 86803

== ENCOUNTER → 2021-08-23 07:37 | Day surgery (SDC) | payer OTHER, SELFPAY ==
[2021-08-17 15:27] VITALS: BMI 29.5
--- NOTE | 2021-08-22 11:48 | HO.ANESPROP2 ---
Documented by User: Malena Arvizu NP 08/22/21 12:03 HPI - Anesthesia Eval Consult details Narrative: 41yo M for Upper Endoscopy and Colonoscopy ETOH abuse PMFSH Active Problems Active Problems: All Active Problems (Updated 08/17/21 @ 15:26 by Mendy Cui RN) Physical exam (Acute) Diverticulitis (Acute) Knee pain (Acute) Osteochondral defect of femoral condyle (Acute) GERD (gastroesophageal reflux disease) (Acute) Urinary hesitancy (Acute) Back pain (Acute) Alcohol abuse (Acute) Depression (Acute) Past Medical History Medical History Alcohol abuse Depression GERD (gastroesophageal reflux disease) No known health problems Shortness of breath Family History Family History Mother Mental health disorder Substance use disorder Father Mental health disorder Substance use disorder Surgical History Surgical History History of left knee surgery History of umbilical hernia repair Social History Social History Housing: Apartment Are you a primary medicare nurse to a significant other at home: No Do you presently have visiting nurse or other home services: No Alcohol intake: current Alcohol intake frequency: a few times a month Patient Tobacco Use Status: Current someday Tobacco user Tobacco use type: Cigarette e-Cigarette/Vaping Use: Never Used Second Hand Smoke Exposure: No Substance Use Type Other:: past cocaine user- denies any now Have you been hit, kicked, punched, or otherwise hurt by someone within the past year? If so, by whom?: No Are you DNR?: No Advance Directives: No Advance Directives Information Provided: No Advance Directives on File: No Recently lost weight without trying: No Eating poorly because of decreased appetite: No Nutrition Risks: No Nutritional Risk service: No Current occupational status: unemployed Cognitive needs: No Hearing needs: No Vision needs: No Meds Allergies Allergy/AdvReac Type Severity Reaction Status Date / Time No Known Allergies Allergy Verified 08/17/21 15:00 [No Known Allergies*] Home Medications Medication Instructions Recorded Confirmed Last Taken Type mirtazapine 7.5 mg tablet 7.5 mg PO BEDTIME 08/16/21 08/17/21 Unknown History sertraline 100 mg tablet 100 mg PO DAILY 08/16/21 08/17/21 Unknown History Exam Exam Date and Time: August 22, 2021 1148 Height,Weight and Vital Signs: Height 5 ft 9 in Weight 90.718 kg Pertinent Lab Results Pertinent Lab Results: Laboratory Tests 08/22/21 08/22/21 09:09 09:09 WBC 6.0 Hgb 15.7 Hct 48.7 Plt Count 259 Sodium 140 Potassium 4.5 Chloride 106 Carbon Dioxide 28 BUN 10 Creatinine 1.08 Total Bilirubin 0.5 AST 22 ALT 29 Alkaline Phosphatase 55 D Total Protein 6.9 Albumin 4.2 Assessment and Plan Assessment Anesthesia Assessment: Chart Reviewed Documented by User: Miguel Ball MD 08/23/21 08:10 [facility] Past Medical History Medical History Alcohol abuse Depression GERD (gastroesophageal reflux disease) No known health problems Shortness of breath Family History Family History Mother Mental health disorder Substance use disorder Father Mental health disorder Substance use disorder Family history of problems with anesthesia: No Surgical History Surgical History History of left knee surgery History of umbilical hernia repair History of Problems with Anesthesia: No Social History Social History Housing: Apartment Are you a primary medicare nurse to a significant other at home: No Do you presently have visiting nurse or other home services: No Alcohol intake: current Alcohol intake frequency: a few times a month Patient Tobacco Use Status: Current someday Tobacco user Tobacco use type: Cigarette e-Cigarette/Vaping Use: Never Used Second Hand Smoke Exposure: No Substance Use Type Other:: past cocaine user- denies any now Have you been hit, kicked, punched, or otherwise hurt by someone within the past year? If so, by whom?: No Are you DNR?: No Advance Directives: No Advance Directives Information Provided: No Advance Directives on File: No Recently lost weight without trying: No Eating poorly because of decreased appetite: No Nutrition Risks: No Nutritional Risk service: No Current occupational status: unemployed Cognitive needs: No Hearing needs: No Vision needs: No Meds Allergies Allergy/AdvReac Type Severity Reaction Status Date / Time No Known Allergies Allergy Verified 08/17/21 15:00 [No Known Allergies*] Home Medications Medication Instructions Recorded Confirmed Last Taken Type mirtazapine 7.5 mg tablet 7.5 mg PO BEDTIME 08/16/21 08/17/21 Unknown History sertraline 100 mg tablet 100 mg PO DAILY 08/16/21 08/17/21 Unknown History Exam Airway Mallampati Class: II Neck ROM: Full Assessment and Plan Assessment Anesthesia Assessment: Anesthesia Plan Discussed and Smoking Cess. Discussed Final Anesthetic Review Family History of Problems with Anesthesia: No History of Problems with Anesthesia: No NPO: Yes ASA Class: II Final Preanesthetic Review: No Changes in Pt Med Stat, Meds/Allgs Chart Reviewed, Consent Obtained/Reviewed and Anes Risks/Benef Reviewed Patient Risk: Intermediate Procedure Risk: Low Anesthetic Plan Anesthetic Plan: MAC: and Regional Block
--- NOTE | 2021-08-23 06:52 | P.BOP_ITS ---
Brief Operative Note Surgeon: Mane Terrell MD Was an Outdoor Adventure Instructor used for this Procedure?: No
--- NOTE | 2021-08-23 06:52 | MHC.SHP ---
Pre-Procedural Eval Section A Date of Service: 08/23/21 Section B Chief Complaint: Diverticulitis, GERD Allergies: Allergies Allergy/AdvReac Type Severity Reaction Status Date / Time No Known Allergies Allergy Verified 08/17/21 15:00 [No Known Allergies*] Plan I have reviewed the history and physical and performed a pertinent physical examination on my patient. No changes have occurred unless specified.
[2021-08-23 08:02] VITALS: BP 126/75; PULSE 62; RESP 16; TEMP 36.2; O2SAT 97
[2021-08-23] MEDS: Lactated Ringers 1,000 ML 100 ML IVCONT (08:09)
--- NOTE | 2021-08-23 08:50 | PC.NURSE ---
Patient spoke w/ Dr Terrell and admitted to using cocaine [address] Flores notified and urine drug screen sent to lab 0830.
[2021-08-23 09:14] LABS: Amphetamine Screen Urine Not Detected (Not Detect); Barbiturates, Urine Not Detected (Not Detect); Benzodiazepines Screen Urine Not Detected (Not Detect); Cannabinoid Screen Urine Not Detected (Not Detect); Cocaine Screen Urine POSITIVE (Not Detect); Fentanyl, urine Not Detected (Not Detect); Opiate Screen Urine Not Detected (Not Detect); Phencyclidine Screen Urine Not Detected (Not Detect)
--- NOTE | 2021-08-23 09:24 | PC.NURSE ---
Procedure cancelled by Anesthesia and Dr Terrell due to positive urine tox for cocaine. IV d/c'd and patient discharged with instructions to reschedule.
== END ==
PROVIDERS: Anesthesiology; PCP Internal Medicine; Visit Provider Internal Medicine Gastroenterology
DX: K21.9 Gastro-esophageal reflux disease without esophagitis (principal); Z53.8 Procedure and treatment not carried out for other reasons; K57.92 Diverticulitis of intestine, part unspecified, without perforation or abscess without bleeding
CPT/HCPCS: 80307

== ENCOUNTER 2021-08-29 08:22 | Outpatient (REF) | payer OTHER, SELFPAY ==
--- NOTE | ~2021-08-29 | US_ITS ---
EXAMINATION: US ABDOMEN COMPLETE CLINICAL INFORMATION: Diverticulitis of intestine, part unspecified, without perforation, abscess or bleeding. COMPARISON: CT abdomen and pelvis with contrast 03/15/2021. TECHNIQUE: Real-time imaging of the abdominal viscera. Technically limited study secondary to bowel gas. FINDINGS: Limited exam due to bowel gas. PANCREAS: The head and the body the pancreas is homogeneous in echotexture. The tail is obscured by overlying gas. ABDOMINAL AORTA: The proximal abdominal aorta is not well visualized. The mid and the distal segments appear normal caliber. INFERIOR VENA CAVA: Visualized portions are normal. LIVER: Normal. The liver is normal in size. The liver contour is normal. Parenchymal echogenicity is normal. No focal hepatic lesion. There is no intrahepatic biliary duct dilatation seen. GALLBLADDER: Gallbladder wall thickness measures 0.3 cm. The gallbladder is physiologically distended without evidence of stones, sludge, polyps, wall thickening or pericholecystic fluid. COMMON BILE DUCT: Normal in caliber measuring 0.4 cm in diameter. RIGHT KIDNEY: Normal. No hydronephrosis. No renal calculi or focal parenchymal lesions. The kidney measures 10.2 cm in maximum dimension. LEFT KIDNEY: Normal. No hydronephrosis. No renal calculi or focal parenchymal lesions. The kidney measures 10.8 cm in maximum dimension. SPLEEN: Normal. The spleen measures 11.2 cm in maximum dimension. FREE FLUID: None. US/US abdomen complete IMPRESSION: Unremarkable complete abdomen ultrasound.
--- NOTE | ~2021-08-29 | XR_ITS ---
EXAMINATION: XR KNEE, LEFT CLINICAL INFORMATION: Pain COMPARISON: Previous x-ray May 2021. TECHNIQUE: Four views of the left knee. FINDINGS: Bone alignment is normal. No fracture or dislocation is seen. There are small osteophytes at the patellofemoral joint. Femoral tibial joints are normal. There is no joint effusion. XR/XR knee LT 2V IMPRESSION: Mild degenerative changes at the patellofemoral joint.
== END 2021-08-29 08:23 | disposition home or self-care (01) ==
LOC: HO.US 08:22
PROVIDERS: Visit Provider Internal Medicine Gastroenterology
DX: K57.92 Diverticulitis of intestine, part unspecified, without perforation or abscess without bleeding (principal); K21.9 Gastro-esophageal reflux disease without esophagitis; R39.11 Hesitancy of micturition; R10.32 Left lower quadrant pain; M25.562 Pain in left knee
CPT/HCPCS: 73560; 76700

== ENCOUNTER 2021-09-12 17:00 | Outpatient (RCR) | payer OTHER, SELFPAY ==
--- NOTE | 2021-08-21 17:40 | MHC.PT.EP ---
[facility] [place] Office [place] Office [place] Office [address] Veronika Beebe [address] [phone] F: [phone] F: [phone] F: [phone] F: [phone] Physical Therapy Plan of Care Date of Evaluation: Date of Surgery: N/A Diagnosis: osteochondral defect of femoral condyle Assessment: pt presents to physical therapy with pain, decreased range of motion, decreased strength, impaired functional mobility, impaired postural awareness, and gait deviations. pt is a good candidate for skilled PT due to age, potential remediation of impairments, typical disease/condition progression and prognosis, comorbidities, and motivation. pt would benefit from tailored strengthening and stretching exercise program, functional training, gait training, postural re-training, neuromuscular re-education, modalities as needed for pain, equipment safety demonstration. Frequency and Duration: The patient will be seen 2x/wk for 4 wks Short Term Goals: pt will be I w/ HEP to promote self-management of condition. pt will improve L knee extension strength by 1 MMT grade to promote ease in ascending stairs. Shelter Goals: pt will report a statistically significant improvement in self-reported outcome measure, LEFI, to promote return to PLOF. pt will improve L hip flexion and knee extension strength to 5/5 to ascend/descend stairs w/ reciprocal pattern to access primary living spaces. Treatment Plan: Modalities to reduce pain, spasms and effusion. Manual therapy to restore motion and function. Therapeutic exercise to improve strength and flexibility. Neuromuscular re-education for posture and balance. Therapeutic activities to return to functional activities of daily living. Electronically signed by: Beba Arguello PT, DPT Please sign and return to therapist. Thank you for your referral.
--- NOTE | 2021-10-11 14:43 | MHC.PT.DC ---
[facility] [place] Office [place] Office [place] Office [address] Veronika Beebe 140 [facility] [phone] F: [phone] F: [phone] F: [phone] F: [phone] Physical Therapy Discharge Report Diagnosis: osteochondral defect of femoral condyle Date of Surgery: N/A Date of Evaluation: 08/21/21 Date of Discharge: 10/11/21 Treatments to Date: 3 Cancellations to Date: 4 No Shows to Date: 2 Discharge Status: Visit Non-compliance Discharge Summary: The patient has not attended his last six scheduled visits. Per [facility] Core Therapy attendance policy he is being discharged for non-compliance. Electronically signed by: Beba Arguello PT, DPT Please sign and return to therapist. Thank you for your referral.
== END 2021-10-11 14:44 | disposition home or self-care (01) ==
LOC: HO.PT 17:00
PROVIDERS: PCP Internal Medicine; Visit Provider Orthopaedic Surgery
DX: M95.8 Other specified acquired deformities of musculoskeletal system (principal)
CPT/HCPCS: 97110; 97161

== ENCOUNTER 2022-03-01 13:33 | Outpatient (REF) | payer OTHER, SELFPAY ==
--- NOTE | ~2022-03-01 | XR_ITS ---
EXAMINATION: XR HAND, LEFT CLINICAL INFORMATION: Pain COMPARISON: None TECHNIQUE: PA, lateral, and oblique views of the left hand. FINDINGS: The bones and soft tissues are normal. No fracture. Alignment is anatomic. Joint spaces are maintained. No erosions or soft tissue calcifications. XR/XR hand LT min 3V IMPRESSION: Normal left hand.
== END 2022-03-01 13:34 | disposition home or self-care (01) ==
LOC: HO.XRAY 13:33
PROVIDERS: PCP Internal Medicine; Visit Provider Orthopaedic Surgery
DX: M95.8 Other specified acquired deformities of musculoskeletal system (principal)
CPT/HCPCS: 20610; 73130; 99212; J1100

== ENCOUNTER → 2022-07-06 11:22 | Outpatient (BNVA) | payer OTHER, SELFPAY | PROVIDERS: PCP Internal Medicine; Visit Provider Orthopaedic Surgery | DX: M21.952 Unspecified acquired deformity of left thigh (principal); M25.562 Pain in left knee | CPT/HCPCS: 20610; 99212; J1100 ==

== ENCOUNTER 2023-01-21 13:32 | Outpatient (AMB) | payer OTHER, SELFPAY ==
--- NOTE | 2023-01-21 13:33 | A.OFFVIS_ITS ---
Intake Intake Visit Reasons: OV - left Knee Injection - last done 07/06/22 Intake Note: Samuel is a 42 year old male who presents today for a follow up of his left knee pain. Last injection done 07/06/22. Patient reports that the last injection was helpful but it has started to bother him again. He would like to repeat injection today. Allergies No Known Allergies [No Known Allergies*] Allergy (Verified 03/01/22 13:36) HPI OV - left Knee Injection - last done 07/06/22 HPI Details Samuel is a 42 year old man who returns with ongoing left knee pain, S/P left knee osteal chondral allograft, DOS: 04/25/16 by me. He was last injected on 07/06/22, with good relief, and would like a repeat injection today. He says he has not been contacted for a fitting of his custom knee brace. He returns today with increased knee pain and would like a repeat injection today. He continues to have intermittent knee effusion. [facility] Medical History Alcohol abuse Depression Diverticulitis GERD (gastroesophageal reflux disease) Shortness of breath Surgical History History of left knee surgery History of umbilical hernia repair Family History Mother Mental health disorder Substance use disorder Father Mental health disorder Substance use disorder Social History Housing: Apartment Are you a primary manager respiratory care to a significant other at home: No Do you presently have visiting nurse or other home services: No Alcohol intake: current Alcohol intake frequency: a few times a month Patient Tobacco Use Status: Current everyday Tobacco user Tobacco use type: Cigarette e-Cigarette/Vaping Use: Never Used Second Hand Smoke Exposure: No service: No Current occupational status: unemployed Cognitive needs: No Hearing needs: No Vision needs: No Review of Systems Const All systems reviewed & are unremarkable except as noted in HPI and below Physical Exam Const General: no acute distress and alert Orientation/consciousness: patient oriented x3 HEENT Head: Yes normocephalic and Yes atraumatic Eyes EOM: EOMs intact bilaterally Resp Effort & Inspection: normal respiratory effort and able to speak in complete sentences Cardio Jugular venous distension: no JVD Skin General skin exam: turgor normal Rashes: no rashes Neuro General: patient oriented x3 Extrem Other: Left Knee: Skin C/D/I Trace effusion mild TTP MFC Psych Appearance: grossly normal Affect: normal affect Attitude: cooperative Office Procedures Joint Injection/Drain Joint Injection/Drain Details: Injected 1 mL of Decadron and 3 mL 1% lidocaine and 3 mL of 0.25% Marcaine. Site was prepped using aseptic technique. Patient tolerated the procedure well. Primary Site: left knee Approach Used: anterolateral Coding - Large joint Procedure code (CPT) selection complete Results Reviewed Results Reviewed: 01/21/23 13:41 BUPivacaine MPF 0.25 % [Sensorcaine-MPF 0.25% 10 ML] 10 ml .ROUTE .STK-MED ONE Lidocaine HCl 2 % MPF [Xylocaine 2 % MPF] 5 ml .ROUTE .STK-MED ONE dexAMETHasone sod phosphate [Decadron] 4 mg .ROUTE .STK-MED ONE Assessment & Plan Assessment & Plan (1) Osteochondral defect of femoral condyle: Code(s): M95.8 - Other specified acquired deformities of musculoskeletal system Plan: This is a 41 year old man who is S/P left knee osteochondral allograft, DOS: 04/25/16. He continues to have occasional swelling and occasional pain. This is a long-standing problem and he has a history of repeat steroid injections, with some relief, with his last injection on 07/06/22. He has tried and failed PT in the past. I injected his left knee today, which he tolerated well, and recommend he continue to wear his knee brace with daily activity. He can follow up prn. Plan Scribed for Thomas Anderson MD by George Barrera, medical claims specialist, on 01/21/23 at 1:55 PM, EST. Coding Level of Care Code Est Pt Level 3 (93904) Diagnoses Osteochondral defect of femoral condyle M95.8 CPT Codes Coding - Large joint: 61119 - Large joint ([id number])
== END 2023-01-21 13:56 | disposition home or self-care (01) ==
PROVIDERS: PCP Internal Medicine; Visit Provider Orthopaedic Surgery
DX: M25.562 Pain in left knee (principal); M95.8 Other specified acquired deformities of musculoskeletal system
CPT/HCPCS: 20610; 99213

== ENCOUNTER → 2023-01-21 13:32 | Outpatient (BNVA) | payer OTHER, SELFPAY | PROVIDERS: PCP Internal Medicine; Visit Provider Orthopaedic Surgery | DX: M95.8 Other specified acquired deformities of musculoskeletal system (principal); M25.462 Effusion, left knee; M25.562 Pain in left knee | CPT/HCPCS: 20610; 99212; J1100 ==

== ENCOUNTER 2023-01-30 11:03 | Emergency (ER) | payer OTHER, SELFPAY ==
--- NOTE | ~2023-01-30 | CT_ITS ---
EXAMINATION: CT ABDOMEN AND PELVIS WITH CONTRAST CLINICAL INFORMATION: History diverticulitis left lower quadrant pain nausea vomiting COMPARISON: CT abdomen from 03/15/2021 TECHNIQUE: Multidetector volumetric images were obtained from the superior aspect of the liver through the pubic symphysis following administration 85 mL of Omnipaque 350 intravenous contrast. Sagittal and coronal reformatted images were obtained on the technologist's workstation. Oral contrast: No This CT examination was performed using dose optimization techniques as appropriate, variously including the following: *Automated exposure control *Adjustment of mA and/or kV according to patient size (this includes techniques or standardized protocols for targeted exams where dose is matched to indication/reason for exam; i.e. extremities or head) *Use of iterative reconstruction technique DLP: 572 mGy-cm FINDINGS: LUNG BASES: The visualized lung bases are unremarkable. LIVER, GALLBLADDER, AND BILIARY TREE: The liver is normal in size, shape, and attenuation. No focal hepatic lesion or biliary ductal dilatation is present. The gallbladder is unremarkable with no evidence of radiopaque gallstones, gallbladder wall thickening, or obvious pericholecystic inflammatory changes. PANCREAS: Unremarkable. SPLEEN: Unremarkable. ADRENAL GLANDS: Unremarkable. KIDNEYS AND URETERS: The kidneys are normal in size, shape, and attenuation. No hydronephrosis, hydroureter, or calculi seen. No perinephric stranding. BLADDER: Unremarkable. GASTROINTESTINAL TRACT: Colonic diverticulosis with wall thickening and pericolonic inflammatory changes of the distal descending colon/proximal sigmoid colon suggesting diverticulitis. The small and large bowel are otherwise unremarkable. The appendix is unremarkable. ABDOMINAL WALL: Small fat filled bilateral inguinal hernias. LYMPH NODES: No enlarged lymph nodes per size criteria. VASCULAR: Unremarkable. PELVIC VISCERA: Prostate measures up to 4.6 cm. OSSEOUS STRUCTURES: Multilevel degenerative changes of the thoracolumbar and lumbosacral spine. Sclerotic focus of the left sacrum statistically representing a bone island. CT/CT abdomen pelvis w IV con IMPRESSION: Colonic diverticulosis with wall thickening and pericolonic inflammatory changes of the distal descending colon/proximal sigmoid colon suggesting diverticulitis.
[2023-01-30 12:18] VITALS: BP 135/81; PULSE 58; RESP 16; TEMP 36.8; O2SAT 98; BMI 29.2
--- NOTE | 2023-01-30 12:18 | ED_ITS ---
HPI - Abdominal Pain General Chief Complaint: Abdominal Pain Stated Complaint: pain in lower abd Time Seen by Provider: 01/30/23 16:01 Source: patient Mode of arrival: ambulatory Limitations: no limitations History of Present Illness HPI narrative: Patient this 42-year-old male presents emergency department for evaluation of left lower/lower mid abdominal pain with onset 2 days ago. The pain is constant in nature with varying intensity, reports severe waves of pain 8/10. Currently pain is 2/10. Endorses nausea with vomiting, though no episodes of vomiting today. Denies diarrhea, melena, hematochezia. States he has been constipated for the past 3 days. This feels consistent with prior episodes of diver ticulitis Related Data Home Medications Medication Instructions Recorded Confirmed mirtazapine 7.5 mg tablet 7.5 mg PO BEDTIME 08/16/21 02/05/22 sertraline 100 mg tablet 100 mg PO DAILY 08/16/21 02/05/22 Previous Rx's Medication Instructions Recorded dicyclomine 10 mg capsule 10 mg PO TID #30 caps 06/30/21 ondansetron 4 mg disintegrating 4 mg PO Q6H #10 tabs 06/30/21 tablet bisacodyl 5 mg tablet,delayed 10 mg PO ONCE Bowel Preparation 1 08/30/21 release (Dulcolax (bisacodyl)) day #2 tabs peg 3350-electrolytes 236 240 ml PO ONCE 1 day #4,000 mL 08/30/21 gram-22.74 gram-6.74 gram-5.86 gram solution (Golytely) amoxicillin 875 mg-potassium 1 tab PO BID #19 tabs 01/30/23 clavulanate 125 mg tablet ondansetron 4 mg disintegrating 4 mg PO Q8H PRN nausea and 01/30/23 tablet vomiting #10 tabs Allergies Allergy/AdvReac Type Severity Reaction Status Date / Time No Known Allergies Allergy Verified 01/30/23 12:18 [No Known Allergies*] Review of Systems Review of Systems Yes all other systems are reviewed and are negative PMFSH Past Medical History Attestation statement: The following information was validated with the patient. Source: old records reviewed Medical History Alcohol abuse Depression Diverticulitis GERD (gastroesophageal reflux disease) Shortness of breath Surgical History History of left knee surgery History of umbilical hernia repair Family History Family History Mother Mental health disorder Substance use disorder Father Mental health disorder Substance use disorder Social History Social History Housing: Apartment Are you a primary health care technician to a significant other at home: No Do you presently have visiting nurse or other home services: No Alcohol intake: current Alcohol intake frequency: a few times a month Patient Tobacco Use Status: Current everyday Tobacco user Tobacco use type: Cigarette e-Cigarette/Vaping Use: Never Used Second Hand Smoke Exposure: No Advance Directives: No Advance Directives Information Provided: No service: No Current occupational status: unemployed Cognitive needs: No Hearing needs: No Vision needs: No Physical Exam ED Vital Signs: Vital Signs - 24 hr 01/30/23 12:18 01/30/23 16:00 Temperature 98.3 F Pulse Rate 58 55 Respiratory Rate 16 16 Blood Pressure 135/81 134/75 Pulse Oximetry 98 97 Oxygen Delivery Method Room Air Room Air BMI result Body Mass Index 29.2 Appearance: Alert.?Oriented to person, place and time. No acute distress.?Normal affect. Eyes: Pupils equal, round and reactive to light.? ENT: Pharynx normal.?? Neck: Normal inspection.? Neck supple.?? CVS: Heart sounds normal. Normal heart rate and rhythm.? Pulses normal.?? Respiratory: No respiratory distress.? Lung sounds clear to auscultation bilaterally?? Abdomen: Soft with left lower quadrant tenderness upon palpation. No CVA tenderness. Normoactive bowel sounds. Skin: Skin warm and dry.? Normal skin color.? ? Extremities: No lower extremity edema.? Neuro: Moves all extremities spontaneously. Sensation intact bilaterally. Ambulates with normal steady gait. Course Course Course Narrative: This is a rapid medical exam. Deferred additional HPI, ROS, PE to primary provider. 42 yo male with history of diverticulitis here with complaints of nausea/vomiting, lower abdominal pain since yesterday. No fevers, chills, diarrhea. Will obtain labs, UA. VSS Reevaluation(s) Reevaluation #1: CBC reveals white rings of leukocytosis or anemia. CMP is overall unremarkable. Lipase within normal limits. Urinalysis without compelling evidence of infection or microscopic hematuria. CT reveals diverticulitis of the distal descending colon and proximal sigmoid colon without acute complications no evidence of perforation or abscess. Reviewed these findings with patient. He is tolerating oral intake. Afebrile. Stable for discharge home, received 1st dose of Augmentin in the emergency department, sent prescription to pharmacy for Augmentin, Zofran, advised acetaminophen/ibuprofen for pain management. Advised outpatient follow-up with PCP/GI. Discussed worrisome signs and symptoms that would warrant re-evaluation emergency department. All questions answered. Stable for discharge. Time: 18:58 Medical Decision Making Medical Decision Making MDM Narrative: Patient is a 42-year-old male with past medical history of GERD, diverticulitis, depression presents emergency department for evaluation of abdominal pain. He is overall well-appearing, nontoxic, afebrile. Abdominal examination revealed a four-quadrant tenderness upon palpation. And history of diverticulitis, plan to obtain CT of the abdomen pelvis to exclude intra-abdominal etiology/complicated diverticulitis. Will obtain CBC to evaluate for leukocytosis/ anemia, CMP and lipase to evaluate for abnormal electrolytes /abnormal renal function/ abnormal hepatic/biliary function, and Urinalysis. Differential Diagnosis Differential Diagnoses: The differential diagnosis associated with the presentation includes (Diverticulitis, colitis, ureteral calculi, hydronephrosis, appendicitis, muscular pain) Admission/Observation Consideration of admission/observation: Escalation of care including admission/observation considered (I considered admission for abdominal pain, see course narrative for further detail) Lab Data MDM Lab Attestation statement: I reviewed the patient's lab results. (See course narrative for further detail) 01/30/23 12:38 01/30/23 12:38 Labs: Lab Results 01/30/23 01/30/23 01/30/23 Range/Units 12:38 12:38 12:42 WBC 7.3 (4.8-10.8) X10*3/uL RBC 5.15 (4.60-5.80) X10*6/uL Hgb 16.0 (14.0-18.0) g/dl Hct 47.5 (42.0-52.0) % MCV 92.2 (80.0-98.0) fL MCH 31.1 (27.0-33.0) pg MCHC 33.7 (31.0-36.0) g/dl RDW 11.3 (11.0-16.0) % Plt Count 261 (160-400) X10*3/uL MPV 9.2 L (9.4-12.4) fL Immature Gran % (Auto) 0.6 H (0.0-0.4) % Neut % (Auto) 64.9 (45-73) % Lymph % (Auto) 22.8 (20-40) % [place] % (Auto) 9.6 (2-11) % Eos % (Auto) 1.8 (0-4) % Baso % (Auto) 0.3 (0-2) % Lymph # (Auto) 1.7 (1.2-4.9) X10*3/uL [place] # (Auto) 0.7 (0.1-1.2) X10*3/uL Eos # (Auto) 0.1 (0.0-0.4) X10*3/uL Baso # (Auto) 0.0 (0.0-0.2) X10*3/uL Abs Immat Gran (auto) 0.04 H (0.00-0.03) X10*3/uL Absolute Neuts (auto) 4.7 (2.0-8.3) x10*3/uL Absolute Nucleated RBC 0.000 (0.0-0.012) X10*3/uL Nucleated RBC % (auto) 0.0 (0.0-0.2) /100WBC Sodium 139 (135-145) mmol/L Potassium 4.1 (3.3-5.1) mmol/L Chloride 107 (96-108) mmol/L Carbon Dioxide 26 (22-29) mmol/L Anion Gap 10 L (12-20) BUN 7 L (9-16) mg/dL Creatinine 1.19 (0.5-1.4) mg/dL Estim Creat Clear Calc 88.5 Estimated GFR > 60 Random Glucose 82 (60-115) mg/dL Calcium 9.4 (8.4-10.2) mg/dL Total Bilirubin 0.4 (0.0-1.0) mg/dL Direct Bilirubin 0.2 (0.0-0.5) mg/dL AST 42 H (5-37) U/L ALT 41 H (0-40) U/L Alkaline Phosphatase 80 (39-117) U/L Total Protein 7.0 (6.5-8.0) g/dL Albumin 3.9 (3.5-5.0) g/dL Lipase 31 (8-78) U/L Urine Color Yellow Urine Appearance Clear Urine pH 7.0 (5.0-9.0) Ur Specific [place] 1.015 (1.005-1.025) Urine Protein Negative (Neg-Trace) mg/dL Urine Glucose (UA) Negative (Negative) mg/dL Urine Ketones Negative (Negative) mg/dL Urine Blood Negative (Negative) Urine Nitrite Negative (Negative) Ur Leukocyte Esterase Trace H (Negative) Urine RBC 0-2 (0-2) /HPF Urine WBC 0-5 (0-5) /HPF Ur Squamous Epith Cells 0-2 (0-2) /HPF Urine Bacteria None Seen (None Seen) Hyaline Casts 0-2 (0-2) /LPF Radiology Impression Discussion of test interpretation with radiology: I have reviewed the radiologist's reading. Radiologist Impression: CT/CT abdomen pelvis w IV con IMPRESSION: Colonic diverticulosis with wall thickening and pericolonic inflammatory changes of the distal descending colon/proximal sigmoid colon suggesting diverticulitis. Independent Historian Clinical information obtained from an independent historian. History obtained from or confirmed by: Spouse (Present at bedside a confirms history) External Record Review External record reviewed: Outpatient record Medications Administered Discontinued Medications Generic Name Dose Route Start Last Admin Trade Name Freq PRN Reason Stop Dose Admin Amoxicillin/Clavulanate Potassium 875 mg 01/30/23 18:58 01/30/23 19:07 Amoxicillin/Potassium Clav 875 Mg Tablet PO 01/30/23 18:59 875 mg ONCE ONE Administration Sodium Chloride 1,000 mls @ 999 mls/hr 01/30/23 16:15 01/30/23 16:26 Ns IV 01/30/23 17:15 999 mls/hr .Q1H1M VALENCIA Administration Iohexol 100 ml 01/30/23 16:50 01/30/23 16:51 Iohexol 350 Mg/Ml 100 Ml Infus..Btl IV 01/30/23 16:51 85 ml ONCE ONE Administration Morphine Sulfate 4 mg 01/30/23 16:14 01/30/23 16:27 Morphine Sulfate 4 Mg/Ml Cartridge IVPUSH 01/30/23 16:15 4 mg ONCE ONE Administration Protocol Ondansetron HCl 4 mg 01/30/23 16:14 01/30/23 16:32 Ondansetron Hcl 4 Mg/2 Ml Vial IVPUSH 01/30/23 16:15 4 mg ONCE ONE Administration Discharge Plan Discharge Clinical Impression: Diverticulitis Patient Disposition: Home, Self-Care Instructions: Diverticulitis (ED), Diverticulitis Diet (ED) Additional Instructions: You received the 1st dose of antibiotic while in the emergency department. 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 I have also sent a prescription for Zofran to use as needed for nausea. You can take ibuprofen 200 mg, 3 tablets (600mg) every 6-8 hours as needed for pain, in addition to Tylenol 500 mg, 2 tablets (1,000mg) every 4-6 hours as needed for pain, but not to exceed 3 doses daily (3,000mg).? Contact your primary care provider/GI provider and arrange for follow-up in 1-3 days. You may return back to emergency department any new or worsening symptoms or concerns. Prescriptions: New amoxicillin-pot clavulanate 875-125 mg tablet 1 tab PO BID Qty: 19 0RF ondansetron 4 mg tablet,disintegrating 4 mg PO Q8H PRN (Reason: nausea and vomiting) Qty: 10 0RF No Action peg 3350-electrolytes [Golytely] 236-22.74-6.74 -5.86 gram recon soln 240 ml PO ONCE 1 Days Qty: 4000 0RF Rx Instructions: Start at 6:00pm the evening before your procedure. Drink one 8oz glass until finished. bisacodyl [Dulcolax (bisacodyl)] 5 mg tablet,delayed release (DR/EC) 10 mg PO ONCE 1 Days Qty: 2 0RF Rx Instructions: Take 2 tablets at 12:00pm the day before your procedure, bowel prep mirtazapine 7.5 mg tablet 7.5 mg PO BEDTIME sertraline 100 mg tablet 100 mg PO DAILY ondansetron 4 mg tablet,disintegrating 4 mg PO Q6H Qty: 10 0RF dicyclomine 10 mg capsule 10 mg PO TID Qty: 30 0RF Referrals: Mika Thomas MD [Primary Care Provider] - Interventions: ED Discharge Assessment Last Done: 01/30/23 19:15 Discharge Date/Time: 01/30/23 19:18
[2023-01-30 12:52] LABS: MANUAL DIFF FLAG NO
[2023-01-30 12:54] LABS: Basophils Percent Auto 0.3 % (0-2); Eosinophils Absolute Auto 0.1 X10*3/uL (0.0-0.4); Eosinophils Percent Auto 1.8 % (0-4); Hematocrit 47.5 % (42.0-52.0); Imm Gran Abs Auto 0.04 X10*3/uL (0.00-0.03); Imm Gran Pct Auto 0.6 % (0.0-0.4); Lymphocytes Absolute Auto 1.7 X10*3/uL (1.2-4.9); Lymphocytes Percent Auto 22.8 % (20-40); Mean Corpuscular HGB Conc 33.7 g/dl (31.0-36.0); Mean Corpuscular Hemoglobin 31.1 pg (27.0-33.0); Mean Corpuscular Volume 92.2 fL (80.0-98.0); Mean Platelet Volume 9.2 fL (9.4-12.4); Monocytes Absolute Auto 0.7 X10*3/uL (0.1-1.2); Monocytes Percent Auto 9.6 % (2-11); Neutrophils Absolute Auto 4.7 x10*3/uL (2.0-8.3); Neutrophils Percent Auto 64.9 % (45-73); Platelet Count 261 X10*3/uL (160-400); Red Blood Count 5.15 X10*6/uL (4.60-5.80); Red Cell Distribution Width 11.3 % (11.0-16.0); White Blood Count 7.3 X10*3/uL (4.8-10.8)
[2023-01-30 13:05] LABS: Appearance Urine Clear; Color Urine Yellow; Glucose Urine UA Negative (Negative); Leukocyte Esterase Urine Trace (Negative); Nitrite Urine Negative (Negative); Specific Gravity - Urine 1.015 (1.005-1.025); UMIC TRIGGER UACC YES; Urine Blood Negative (Negative); Urine Ketones Negative (Negative); Urine Protein Negative (Neg-Trace)
[2023-01-30 13:07] LABS: Bacteria Urine None Seen (None Seen); Hyaline Casts Urine 0-2 /LPF (0-2); RBC Urine 0-2 /HPF (0-2); Squamous Epithelial Cell Urine 0-2 /HPF (0-2); WBC Urine 0-5 /HPF (0-5)
[2023-01-30 13:10] LABS: Alanine Aminotransferase 41 U/L (0-40); Albumin Level 3.9 g/dL (3.5-5.0); Alkaline Phosphatase 80 U/L (39-117); Anion Gap 10 (12-20); Aspartate Amino Transferase 42 U/L (5-37); Bilirubin Direct 0.2 mg/dL (0.0-0.5); Bilirubin Total 0.4 mg/dL (0.0-1.0); Blood Urea Nitrogen 7 mg/dL (9-16); Calcium 9.4 mg/dL (8.4-10.2); Carbon Dioxide 26 mmol/L (22-29); Chloride 107 mmol/L (96-108); Creatinine Clr Calc Pharmacy 88.5; Estimated Glomerular Filt Rate > 60; Glucose Random 82 mg/dL (60-115); Lipase 31 U/L (8-78); Potassium 4.1 mmol/L (3.3-5.1); Sodium 139 mmol/L (135-145)
[2023-01-30 16:00] VITALS: BP 134/75; PULSE 55; RESP 16; O2SAT 97
[2023-01-30] MEDS: 0.9 % Sodium Chloride 1,000 ML 999 ML IV (16:26)
[2023-01-30] MEDS: Morphine Sulfate 4 MG/ML CARTRIDGE IVPUSH (16:27)
[2023-01-30] MEDS: ondansetron HCL 4 MG/2 ML VIAL IVPUSH (16:32)
[2023-01-30] MEDS: iohexoL 350 MG/ML 100 ML INFUS..BTL IV (16:51)
[2023-01-30] MEDS: Amoxicillin/Potassium Clav 875 MG TABLET PO (19:07)
--- NOTE | 2023-01-30 19:13 | PC.NURSE ---
This RN took over pt at 1900. Pt ca&ox4, no signs of distress. Pts SO at bedside. Pt ambulating around the room. Pt reports 6/10 abdm pain.
--- NOTE | 2023-01-30 19:14 | PC.NURSE ---
Pt medicated per mar with abx.
== END 2023-01-30 19:18 | disposition home or self-care (01) ==
PROVIDERS: Nurse Practitioner Family; Emergency Provider Student in an Organized Health Care Education/Training Program; PCP Internal Medicine
DX: K57.32 Diverticulitis of large intestine without perforation or abscess without bleeding (principal); F17.210 Nicotine dependence, cigarettes, uncomplicated
CPT/HCPCS: 36415; 74177; 80048; 80076; 81001; 81003; 83690; 85025; 96374; 96375; 99284; J2270; J2405; Q9967

== ENCOUNTER 2023-02-07 13:40 | Outpatient (AMB) | payer OTHER, SELFPAY ==
[2023-02-07 13:41] VITALS: BP 102/60; PULSE 62; BMI 29.0
--- NOTE | 2023-02-07 13:41 | MHC.PC.OV ---
Vital Signs 02/07/23 13:41 Height 5 ft 9 in Weight 196 lb 4 oz BMI 29.0 BP 102/60 Blood Pressure Location Lt brachial Position Sitting Pulse 62 Pulse Source Pulse Oximeter Oxygen Delivery Method Room Air Intake Visit Reasons: Annual Exam School Health Aide Required: No Signal Apprentice: Present Accompanied by: Other Relationship Followed by:: nurse from [facility] Allergies No Known Allergies [No Known Allergies*] Allergy (Verified 02/07/23 13:42) Medication List - Last Reconciled 02/07/23 by Mika Thomas MD amoxicillin-pot clavulanate 875-125 mg 1 tab PO BID bisacodyl (Dulcolax (bisacodyl)) 10 mg (2 x 5 mg) PO ONCE 1 day dicyclomine 10 mg PO TID mirtazapine 7.5 mg PO BEDTIME ondansetron 4 mg PO Q8H PRN ondansetron 4 mg PO Q6H peg 3350-electrolytes 236-22.74-6.74 -5.86 gram (Golytely) 240 mL PO ONCE 1 day sertraline 100 mg PO DAILY Tobacco use date assessed: 08/16/21 Dental Screening Dental Screen Date: 02/07/23 Did you have a dental visit in the last 12 months?: No Did you have a dental problem in the last 6 months where you did not have access to dental care?: No Was dental information given to patient?: Patient has dentist HPI Annual Exam HPI Details depression; sees psych diverticulitis; was seen in er recently for another flare [facility] Medical History Diverticulitis Shortness of breath GERD (gastroesophageal reflux disease) Alcohol abuse Depression Surgical History History of left knee surgery History of umbilical hernia repair Family History Mother Mental health disorder Substance use disorder Father Mental health disorder Substance use disorder Social History Housing: Apartment Are you a primary insurance healthcare representative to a significant other at home: No Do you presently have visiting nurse or other home services: No Alcohol intake: current Alcohol intake frequency: a few times a month Patient Tobacco Use Status: Current everyday Tobacco user Tobacco use type: Cigarette e-Cigarette/Vaping Use: Never Used Second Hand Smoke Exposure: No service: No Current occupational status: unemployed Cognitive needs: No Hearing needs: No Vision needs: No Questionnaire PHQ-9 Over the last 2 weeks, how often have you been bothered by any of the following problems? 1. Little interest or pleasure in doing things: several days 2. Feeling down, depressed, or hopeless: several days 3. Trouble falling or staying asleep, or sleeping too much: not at all 4. Feeling tired or having little energy: not at all 5. Poor appetite or overeating: not at all 6. Feeling bad about yourself - or that you are a failure or have let yourself or your family down: not at all 7. Trouble concentrating on things, such as reading the newspaper or watching television: not at all 8. Moving or speaking so slowly that other people could have noticed. Or the opposite - being so fidgety or restless that you have been moving around a lot more than usual: not at all 9. Thoughts that you would be better off or of hurting yourself in some way: not at all Total score: 2 Depression Screening Interpretation: Negative 10828 - PHQ-9 Billing: Yes Source: Developed by Drs. Eliazar Ross, Taina Fish, Stephen Abarca and colleagues, with an educational susie from [employer] Thrive Questionnaire Date Thrive assessed: 02/07/23 I am a: Patient What is your living situation today?: I have a steady place to live Within the past 12 months, did the food you bought not last and you didn't have the money to get more?: Never true Within the past 12 months, did you worry whether your food would run out before you got money to buy more?: Never true Do you have trouble paying for medicines?: No Do you have trouble getting transportation to medical appointments?: No Do you have trouble paying your heating and electricity bill?: No Do you have trouble taking care of your child, family member or friend?: No Do you have trouble with day-to-day activities such as bathing, preparing meals, shopping, managing finances, etc.?: No Are you currently unemployed and looking for a job?: No Are you interested in more education?: No Please select the resources that you would like help with: None AUDIT C Alcohol Use Questionnaire (AUDIT-C) 1. How often do you have a drink containing alcohol?: 2-3 times a week 2. How many drinks containing alcohol do you have on a typical day when you are drinking?: 10 or more 3. How often do you have six or more drinks on one occasion?: Weekly Total Score: 10 Score Reviewed/Action Taken: Yes CLEM-7 AMB Questionnaire CLEM-7 Date CLEM - 7 assessed: 02/07/23 Feeling nervous, anxious, or on edge: 0 = Not at all Not being able to stop or control worryin = Not at all Worrying too much about different things: 0 = Not at all Trouble relaxin = Not at all Being so restless that it is hard to sit still: 0 = Not at all Becoming easily annoyed or irritable: 0 = Not at all Feeling afraid as if something awful might happen: 0 = Not at all Total CLEM-7 score (0-4 normal; 5-9 mild; 10-14 moderate; 15-21 severe): 0 Source: Developed by Drs. Eliazar Ross, Taina Fish, Stephen Abarca and colleagues, with an educational susie from [employer] CLEM-7 Assessment Billing CLEM-7 Assessment Tool: CLEM-7 Assessment 32634 Review of Systems Const Denies chills, Denies fatigue, Denies headache(s) and Denies weight loss Eyes Denies change in vision, Denies diplopia and Denies eye pain ENT Denies vertigo, Denies dizziness, Denies headache(s) and Denies nasal discharge Card Denies chest pain, Denies rapid heart rate and Denies dyspnea on exertion Resp Denies chest congestion, Denies cough, Denies pain with cough and Denies dyspnea on exertion GI Denies abdominal pain, Denies hematochezia and Denies change in bowel habits Musc Denies myalgias, Denies arthralgias and Denies joint swelling Skin/Breast Denies lesions and Denies unusual bruising Neuro Denies vertigo, Denies dizziness, Denies headache(s) and Denies focal weakness Endo Denies fatigue Physical exam (Primary Care) Vital Signs: Last Vital Signs Pulse 62 02/07/23 13:41 BP 102/60 02/07/23 13:41 Oxygen Delivery Method Room Air 02/07/23 13:41 BMI result Body Mass Index 29.0 Tobacco/Smoking Status: Tobacco use Status Tobacco use date assessed 08/16/21 02/07/23 13:48 Patient Tobacco Use Status Current everyday Tobacco 02/07/23 13:48 Tobacco use type Cigarette 02/07/23 13:48 e-Cigarette/Vaping Use Never Used 02/07/23 13:48 PHQ-9: PHQ-9 Score PHQ-9: Total score 2 02/07/23 13:48 Depression Screening Interpretation: Negative Thrive Assessment: Date of Thrive Assessment Date Thrive assessed 02/07/23 02/07/23 13:48 Const General: cooperative, healthy appearing and no acute distress Orientation/consciousness: oriented to person, oriented to place and oriented to time HENMT Head: Yes normal to inspection, Yes normocephalic and Yes atraumatic Mouth: Normal oral and palatal mucosa present and tongue normal Throat: Yes posterior oropharynx normal and Yes uvula midline Eyes General: appearance normal, both eyes and all related structures Neck Neck: Yes normal visual inspection, Yes full ROM and Yes no lymphadenopathy Thyroid: Thyroid normal Carotids: normal carotid upstroke Chest Chest palpation & inspection: normal inspection of the chest Resp Effort & Inspection: normal respiratory effort and able to speak in complete sentences Auscultation: clear to auscultation bilaterally Cardio Jugular venous distension: no JVD Palpation: normal PMI Rate: regular rate Rhythm: regular rhythm Heart sounds: S1 normal heart sound present and S2 normal heart sound present GI Inspection: Yes normal to inspection Palpation (GI): Soft to palpation and No hepatosplenomegaly present Auscultation: normal bowel sounds General: Yes no CVA tenderness Back/Spine/Pelvis Back: no CVA tenderness Skin General skin exam: no rashes or lesions noted Neuro General: oriented to person, oriented to place and oriented to time Extrem General: Yes normal to inspection and Yes full ROM Assessment and Plan Assessment & Plan (1) Physical exam: Code(s): Z00.00 - Encounter for general adult medical examination without abnormal findings Plan: do labs (2) Diverticulitis: Code(s): K57.92 - Diverticulitis of intestine, part unspecified, without perforation or abscess without bleeding Plan: to see gi (3) Depression: Code(s): F32.9 - Major depressive disorder, single episode, unspecified Plan: per psych Orders: Orders Thyroid Stimulating Hormone Today E03.9 - Hypothyroidism, unspecified Complete Blood Count Auto Diff Today D64.9 - Anemia, unspecified XR lumbar spine 2-3V Today M54.9 - Dorsalgia, unspecified Lipid Panel Today E78.5 - Hyperlipidemia, unspecified Comprehensive [place]. Panel Fast Today N28.9 - Disorder of kidney and ureter, unspecified Referrals Gastroenterology Referral K57.92 - Diverticulitis of intestine, part unspecified, without perforation or abscess without bleeding Coding Level of Care Code Est Pt Prev Care 40-64y(04037) Diagnoses Physical exam Z00.00 Diverticulitis K57.92 Depression F32.9 Additional Codes CLEM-7 Assessment Billing - CLEM-7 Assessment Tool: CLEM-7 Assessment 59202 ([id number])
== END 2023-02-07 14:06 | disposition home or self-care (01) ==
PROVIDERS: PCP Internal Medicine; Visit Provider Internal Medicine
DX: Z00.00 Encounter for general adult medical examination without abnormal findings (principal); K57.92 Diverticulitis of intestine, part unspecified, without perforation or abscess without bleeding; F32.9 Major depressive disorder, single episode, unspecified
CPT/HCPCS: 99396

== ENCOUNTER 2023-02-20 16:27 | Outpatient (REF) | payer OTHER, SELFPAY ==
--- NOTE | ~2023-02-20 | XR_ITS ---
EXAMINATION: XR LUMBOSACRAL SPINE CLINICAL INFORMATION: Dorsalgia. COMPARISON: None available. TECHNIQUE: AP and lateral views of the lumbar spine and lateral view of the lumbosacral junction. FINDINGS: Vertebral body heights are normal. There is lumbarization of the S1 to vertebral body, with a rudimentary S1-S2 disc space. There is a mild lumbar levoscoliosis. At L5-S1, there is a 1 mm anterolisthesis. The remaining disc spaces are relatively well-maintained. No acute fracture or spondylolisthesis is seen. The posterior elements are intact. There is a spina bifida defect at S1. The paravertebral soft tissues are unremarkable. XR/XR lumbar spine 2-3V IMPRESSION: 1. There is mild degenerative disc disease at L5-S1. 2. There is sacralization of the S1 vertebral body, with a rudimentary S1-S2 disc space. 3. There is a S1 spina bifida defect. 4. There is a mild lumbar levoscoliosis.
[2023-02-20 16:36] LABS: MANUAL DIFF FLAG NO
[2023-02-20 16:57] LABS: Basophils Percent Auto 0.3 % (0-2); Eosinophils Absolute Auto 0.1 X10*3/uL (0.0-0.4); Eosinophils Percent Auto 1.9 % (0-4); Hematocrit 50.5 % (42.0-52.0); Hemoglobin 16.5 g/dl (14.0-18.0); Imm Gran Abs Auto 0.02 X10*3/uL (0.00-0.03); Imm Gran Pct Auto 0.3 % (0.0-0.4); Lymphocytes Absolute Auto 1.5 X10*3/uL (1.2-4.9); Mean Corpuscular HGB Conc 32.7 g/dl (31.0-36.0); Mean Corpuscular Hemoglobin 30.3 pg (27.0-33.0); Mean Corpuscular Volume 92.8 fL (80.0-98.0); Monocytes Absolute Auto 0.5 X10*3/uL (0.1-1.2); Monocytes Percent Auto 6.6 % (2-11); Neutrophils Absolute Auto 4.7 x10*3/uL (2.0-8.3); Neutrophils Percent Auto 68.9 % (45-73); Platelet Count 302 X10*3/uL (160-400); Red Blood Count 5.44 X10*6/uL (4.60-5.80); Red Cell Distribution Width 11.1 % (11.0-16.0); White Blood Count 6.9 X10*3/uL (4.8-10.8)
[2023-02-20 17:51] LABS: Alanine Aminotransferase 24 U/L (0-40); Albumin Level 4.2 g/dL (3.5-5.0); Alkaline Phosphatase 66 U/L (39-117); Anion Gap 12 (12-20); Aspartate Amino Transferase 21 U/L (5-37); Bilirubin Total 0.6 mg/dL (0.0-1.0); Blood Urea Nitrogen 10 mg/dL (9-16); Calcium 9.5 mg/dL (8.4-10.2); Carbon Dioxide 30 mmol/L (22-29); Chloride 104 mmol/L (96-108); Cholesterol 208 mg/dL (<200); Estimated Glomerular Filt Rate > 60; Glucose Fasting 91 mg/dL (60-99); HDL Cholesterol 37 mg/dL (>40); LDL Cholesterol Calculated 144 mg/dL (<100); Sodium 142 mmol/L (135-145); Total Protein 7.4 g/dL (6.5-8.0); Triglycerides 136 mg/dL (<150)
[2023-02-20 18:07] LABS: Thyroid Stimulating Hormone 1.05 uIU/mL (0.32-4.0)
== END 2023-02-20 16:28 | disposition home or self-care (01) ==
LOC: HO.LAB 16:27
PROVIDERS: PCP Internal Medicine; Visit Provider Internal Medicine
DX: E03.9 Hypothyroidism, unspecified (principal); D64.9 Anemia, unspecified; E78.5 Hyperlipidemia, unspecified; N28.9 Disorder of kidney and ureter, unspecified; M54.9 Dorsalgia, unspecified
CPT/HCPCS: 36415; 72100; 80053; 80061; 84443; 85025

== ENCOUNTER 2023-05-15 14:00 | Outpatient (REF) | payer OTHER, SELFPAY ==
[2023-05-16 13:56] LABS: Influenza A PCR NEGATIVE (Negative); Influenza B PCR NEGATIVE (Negative); Resp Syncy Virus RNA Qual PCR POSITIVE (Negative); SARS COV2 PCR INHOUSE NEGATIVE (Negative)
== END 2023-05-15 14:01 | disposition home or self-care (01) ==
LOC: HO.LNP 14:00
PROVIDERS: Visit Provider Nurse Practitioner Primary Care
DX: J06.9 Acute upper respiratory infection, unspecified (principal); Z11.52 Encounter for screening for COVID-19
CPT/HCPCS: 0241U

== ENCOUNTER 2023-05-15 14:10 | Outpatient (AMB) | payer OTHER, SELFPAY ==
[2023-05-15 15:07] VITALS: BP 120/60; PULSE 60; TEMP 35.9; O2SAT 99; BMI 30.1
--- NOTE | 2023-05-15 15:07 | AM.OFFWIN_ITS ---
Intake Vital Signs 05/15/23 15:07 Height 5 ft 9 in Weight 204 lb BMI 30.1 BP 120/60 Blood Pressure Location Rt brachial Position Sitting Pulse 60 Pulse Source Pulse Oximeter Temp 96.7 F L Pulse Oximetry (%) 99 Oxygen Delivery Method Room Air Intake Visit Reasons: EP SOB, Congestion, Cough [phone] Intake Note: pt is here today for SOB congestion cough started saturday Patient Tobacco Use Status: Current everyday Tobacco user Allergies No Known Allergies [No Known Allergies*] Allergy (Verified 05/15/23 15:31) Do you need a note to return to daycare/school/sports/work: Yes HPI HPI Comments History of Present Illness Details Patient is a 43-year-old male in today for a sick visit. He states that his partner at home is also sick. He has had symptoms for 2 days which started as a sore throat, cough, headache, bilateral ear pain and sinus tenderness. He has not taken any medication for relief. He will have an in office upper respiratory swab. He denies dizziness, chest pain, shortness a breath, vomiting, diarrhea, or numbness. [facility] Medical History Diverticulitis Shortness of breath GERD (gastroesophageal reflux disease) Alcohol abuse Depression Surgical History History of left knee surgery History of umbilical hernia repair Family History Mother Mental health disorder Substance use disorder Father Mental health disorder Substance use disorder Social History Housing: Apartment Are you a primary residential care officer to a significant other at home: No Do you presently have visiting nurse or other home services: No Alcohol intake: current Alcohol intake frequency: a few times a month Comment: Has bad Knee Patient Tobacco Use Status: Current everyday Tobacco user Tobacco use type: Cigarette e-Cigarette/Vaping Use: Never Used Second Hand Smoke Exposure: No service: No Current occupational status: unemployed Cognitive needs: No Hearing needs: No Vision needs: No Review of Systems Const Details: Constitutional : No Weight loss, No Fever, No Chills, No Fatigue, No Malaise ENT/Mouth : Admits sore throat and sinus tenderness. Eyes: Admits ear pain. Cardiovascular : No Chest Pain, No SOB, No Dyspnea on Exertion, No Orthopnea, No Edema, No Palpitations Respiratory : No Cough, No Sputum, No Wheezing Gastrointestinal : No Nausea, No Vomiting, No Diarrhea, No Constipation, No abdominal Pain, No Hematochezia, No Melena Neuro : No Weakness, No Numbness, No Dizziness, No Headache All other systems reviewed and are negative Physical Exam Vital Signs: Last Vital Signs Temp 96.7 F L 05/15/23 15:07 Pulse 60 05/15/23 15:07 BP 120/60 05/15/23 15:07 Pulse Ox 99 05/15/23 15:07 Oxygen Delivery Method Room Air 05/15/23 15:07 BMI result Body Mass Index 30.1 Vital signs reviewed and are stable Const Other: Appearance: Alert.? Oriented X3.? No acute distress.? Head: Normocephalic, atraumatic, no step-offs or deformities Eyes: Pupils equal, round and reactive to light.? ENT: Pharynx erythema. Bilateral TM effusion and erythema. Neck: Normal inspection.? Neck supple.?Full ROM CVS: Normal heart rate and rhythm.? Pulses normal.? Respiratory: No respiratory distress.? Breath sounds normal.? Abdomen: Soft and nontender.? Neuro: Oriented X 3.? No motor deficit.? No sensory deficit. CN 2-12 intact Results AMB Rapid Strep AMB Rapid Strep Negative Last Edit by EZIO Corey on 05/15/23 15: 51 Results Reviewed Results Reviewed: Laboratory Last Values Strep Scn Rapid Clinic Negative 05/15/23 15:50 Will call patient with upper respiratory swab result. Assessment & Plan Assessment & Plan (1) Bilateral otitis media: Comment: Patient will be given Augmentin to be taken as prescribed. He has been educated on side effects of these medications and how to take them properly. He will also be given prednisone and benzonatate to assist with cough and ear effusion. Code(s): H66.93 - Otitis media, unspecified, bilateral Qualifiers: Otitis media type: unspecified Qualified Code(s): H66.93 - Otitis media, unspecified, bilateral Plan: Take your medications as prescribed. If you were prescribed antibiotics today, it is important that you take your medication to their entirety, do not skip any doses, do not finish them early. Follow-up with your primary care provider this week. Return to the emergency department with new or worsening symptoms. Such as fevers, chills, chest pain, shortness of breath, nausea, vomiting, dizziness, headache, vision changes, lethargy In case of emergency call 911 Orders: Orders SARS-CoV2/FLU/RSV 05/15/23 J06.9 - Acute upper respiratory infection, unspecified AMB Rapid Strep Screen 05/15/23 Z13.9 - Encounter for screening, unspecified Medications: New prednisone 40 mg (2 x 20 mg) PO DAILY 5 tabs 0RF amoxicillin-pot clavulanate 875-125 mg 1 tab PO Q12H 20 tabs 0RF benzonatate 200 mg PO BID PRN 20 caps 0RF cough Coding Level of Care Code Est Pt Level 3 (55743) Diagnoses Bilateral otitis media, unspecified otitis media type H66.93 Otitis media type: unspecified Time Spent (min) 20
== END 2023-05-15 17:07 | disposition home or self-care (01) ==
PROVIDERS: PCP Internal Medicine; Visit Provider Nurse Practitioner Primary Care
DX: J02.9 Acute pharyngitis, unspecified (principal)
CPT/HCPCS: 87880; 99213

== ENCOUNTER 2023-06-06 06:34 | Day surgery (SDC) | payer OTHER, SELFPAY ==
[2023-02-25 17:01] VITALS: BMI 28.9
[2023-06-03 14:26] VITALS: BMI 28.9
--- NOTE | 2023-06-05 08:55 | P.CONAN_ITS ---
Documented by User: Malena Arvizu NP 06/05/23 08:58 HPI - Anesthesia Eval Consult details Narrative: 43yo M for Upper Endoscopy and Colonoscopy [facility] Active Problems Active Problems: All Active Problems (Updated 05/15/23 @ 15:59 by JACINTO Lee) Bilateral otitis media (Acute) Physical exam (Acute) Diverticulitis (Acute) Knee pain (Acute) Osteochondral defect of femoral condyle (Acute) GERD (gastroesophageal reflux disease) (Acute) Urinary hesitancy (Acute) Back pain (Acute) Alcohol abuse (Acute) Depression (Acute) Past Medical History Medical History Anxiety Sleep apnea Diverticulitis Shortness of breath GERD (gastroesophageal reflux disease) Alcohol abuse Depression Family History Family History Mother Mental health disorder Substance use disorder Father Mental health disorder Substance use disorder Family history of problems with anesthesia: No Surgical History Surgical History History of wisdom tooth extraction History of left knee surgery History of umbilical hernia repair History of Problems with Anesthesia: No Social History Social History Housing: Apartment Are you a primary health care facility administrator to a significant other at home: No Do you presently have visiting nurse or other home services: No Alcohol intake: current Alcohol intake frequency: a few times a month Comment: Has bad Knee Patient Tobacco Use Status: Current someday Tobacco user Tobacco use type: Cigarette e-Cigarette/Vaping Use: Never Used Second Hand Smoke Exposure: No Use of substances other than those prescribed or required for medical reasons: No Are you DNR?: No Advance Directives: No Advance Directives Information Provided: Yes service: No Current occupational status: unemployed Cognitive needs: No Hearing needs: No Vision needs: No Meds Allergies Allergy/AdvReac Type Severity Reaction Status Date / Time No Known Allergies Allergy Verified 06/06/23 06:47 [No Known Allergies*] Home Medications Medication Instructions Recorded Confirmed Last Taken Type sertraline 100 mg tablet (Zoloft) 100 mg PO DAILY 08/16/21 06/06/23 Unknown History bupropion HCl 300 mg 24 hr tablet, 300 mg PO DAILY 06/06/23 06/06/23 Unknown History extended release trazodone 50 mg tablet 100 mg PO BEDTIME PRN Anxiety 06/06/23 06/06/23 Unknown History Exam Height,Weight and Vital Signs: Height 5 ft 9 in Weight 88.904 kg Pertinent Lab Results Pertinent Lab Results: Laboratory Tests 02/20/23 16:35 WBC 6.9 Hgb 16.5 Hct 50.5 Plt Count 302 Sodium 142 Potassium 4.0 Chloride 104 Carbon Dioxide 30 H BUN 10 Creatinine 1.06 Assessment and Plan Assessment Anesthesia Assessment: Chart Reviewed Final Anesthetic Review Family History of Problems with Anesthesia: No History of Problems with Anesthesia: No Documented by User: Glo Bocanegra MD 06/06/23 07:28 [facility] Past Medical History Medical History Anxiety Sleep apnea Diverticulitis Shortness of breath GERD (gastroesophageal reflux disease) Alcohol abuse Depression Family History Family History Mother Mental health disorder Substance use disorder Father Mental health disorder Substance use disorder Surgical History Surgical History History of wisdom tooth extraction History of left knee surgery History of umbilical hernia repair Social History Social History Housing: Apartment Are you a primary health care facility administrator to a significant other at home: No Do you presently have visiting nurse or other home services: No Alcohol intake: current Alcohol intake frequency: a few times a month Comment: Has bad Knee Patient Tobacco Use Status: Current someday Tobacco user Tobacco use type: Cigarette e-Cigarette/Vaping Use: Never Used Second Hand Smoke Exposure: No Use of substances other than those prescribed or required for medical reasons: No Are you DNR?: No Advance Directives: No Advance Directives Information Provided: Yes service: No Current occupational status: unemployed Cognitive needs: No Hearing needs: No Vision needs: No Meds Allergies Allergy/AdvReac Type Severity Reaction Status Date / Time No Known Allergies Allergy Verified 06/06/23 06:47 [No Known Allergies*] Home Medications Medication Instructions Recorded Confirmed Last Taken Type sertraline 100 mg tablet (Zoloft) 100 mg PO DAILY 08/16/21 06/06/23 Unknown History bupropion HCl 300 mg 24 hr tablet, 300 mg PO DAILY 06/06/23 06/06/23 Unknown History extended release trazodone 50 mg tablet 100 mg PO BEDTIME PRN Anxiety 06/06/23 06/06/23 Unknown History Exam Airway Mallampati Class: II TM Dist: >3cm Neck ROM: Full Loose/Missing/Broken Teeth: No Heart: RRR Lungs: CTA Assessment and Plan Assessment Anesthesia Assessment: Anesthesia Plan Discussed and Chart Reviewed Final Anesthetic Review NPO: Yes ASA Class: III Patient Risk: Intermediate Procedure Risk: Intermediate Anesthetic Plan Anesthetic Plan: MAC: Disposition: Standard PACU
[2023-06-06 06:51] VITALS: BMI 30.2
[2023-06-06 06:59] VITALS: BP 137/74; PULSE 58; RESP 16; TEMP 36.8; O2SAT 96
[2023-06-06] MEDS: Lactated Ringers 1,000 ML 100 ML IVCONT (07:12)
--- NOTE | 2023-06-06 07:36 | MHC.SHP ---
Pre-Procedural Eval Section A Date of Service: 06/06/23 Section B Chief Complaint: Diverticulitis of intestine, GERD Relevant Family History (Specify if Yes): No Relevant Social History: Tobacco Use Present Medications: see Short Stay Collaborative assessment Medical History: Significant History (Anxiety Sleep apnea Diverticulitis Shortness of breath GERD (gastroesophageal reflux disease) Alcohol abuse Depression) History of Previous Operations: Relevant previous surgery/procedure and date(s) ( History of wisdom tooth extraction History of left knee surgery History of umbilical hernia repair) Allergies: Allergies Allergy/AdvReac Type Severity Reaction Status Date / Time No Known Allergies Allergy Verified 06/06/23 06:47 [No Known Allergies*] Review of Systems Sugical H&P ROS: Negative: Constitution, Cardiovascular, Respiratory, Neurological, Psychiatric, Hem-Onc, Allergic/Immunologic, Gastrointestinal, Genitourinary, Musculoskeletal, Integumentary, Endocrine and Eyes/Ears/Nose/Throat Exam Surgical H&P Exam: Normal: HEENT, Normal: Heart, Normal: Lungs, Normal: Extremities, Normal: Abdomen, Normal: Skin and Normal: Neurological Plan Diagnosis/Plan: Unchanged I have reviewed the history and physical and performed a pertinent physical examination on my patient. No changes have occurred unless specified. Time Spent With Patient Time: Total time managing care of this patient today ____ minutes.
--- NOTE | 2023-06-06 08:08 | P.OP_ITS ---
Operative Note Operative Note Date of Service: 06/06/23 Narrative: Operative Information Procedure Description: EGD, Colonoscopy Indication: GERD, LLQ pain Anesthesia: MAC FLEXIBLE TRANSORAL UPPER GASTROINTESTINAL ENDOSCOPY AND COLONOSCOPY PROCEDURE NOTE UPPER ENDOSCOPY Consent: Indications for the procedure and potential complications of bleeding, perforation, reaction to medications and missed diagnosis were discussed with the patient and informed consent was obtained. Instrument: Olympus GIF H 190 J mid size upper endoscope Monitoring: Vital signs and clinical assessment, continuous EKG monitoring, Pulse oximetry, Carbon Dioxide monitoring and blood pressure monitoring were done throughout the procedure. Procedure: The patient was placed in the left lateral decubitis position and pre-procedure medications were administered and a bite block was placed. The endoscope was inserted into the mouth and advanced under direct vision to the third part of duodenum. A careful inspection was made as the upper endoscope was withdrawn including a retroflexed examination of the proximal stomach; Findings and interventions are described below. Findings: Larynx:normal Esophagus: GE junction at 40 cm, diaphragm hiatus at 42 cm, consistent with 2 cm sliding hiatal hernia. Erosive esophagitis La grade C with marked erythema and swelling at GEJ, also schatzki ring noted, bx taken from GEJ, distal and proximal esophagus Stomach:erosive gastritis rashida at antrum. Biopsies were obtained. Grade 2 flap valve on retroflexed examination of the cardia. Duodenum: Bulbar duodenitis, bx taken Intervention: Biopsies as noted above COLONOSCOPY Instrument: Olympus variable stiffness pediatric scope 190L Colonoscopy Monitoring: Vital signs and clinical assessment, continuous EKG monitoring, Pulse oximetry, Carbon Dioxide monitoring and blood pressure monitoring were done throughout the procedure. Colon withdrawal time was 8 minutes. Procedure: The patient was placed in the left lateral decubitis position and pre-procedure medications were administered. After a digital rectal examination of the ano-rectum, the video colonoscope was inserted into the rectum and advanced through the colon to the cecum/TI. The colonoscope was slowly withdrawn in a retrograde panoramic fashion and the colon mucosa was carefully examined including a retroflexed view of the rectum. Findings and interventions are described below. Procedure Difficulty:easy Findings: Terminal Ileum-normal, bx taken Random bx taken from right and left colon Cecum:normal Ascending Colon: normal Transverse Colon -normal Descending Colon:normal Sigmoid Colon: diverticulosis, moderate with granular mucosa Rectum: Retroflexion with medium sized internal hemorrhoids, grade I with granul ar mucosa Anorectum - normal Colon preparation: [place]burn Bowel Preparation Scale Right colon; 1-2 Transverse colon: 2 Left colon; 2 (0 = Unprepared colon segment with mucosa not seen due to solid stool that cannot be cleared. 1 = Portion of mucosa of the colon segment seen, but other areas of the colon segment not well seen due to staining, residual stool and/or opaque liquid. 2 = Minor amount of residual staining, small fragments of stool and/or opaque liquid, but mucosa of colon segment seen well. 3 = Entire mucosa of colon segment seen well with no residual staining, small fragments of stool or opaque liquid) Impression and Post Procedure Diagnosis: Endoscopy Findings: schatzki ring hiatal hernia erosive esophagitis gastritis erosive duodenitis Colonoscopy Findings: internal hemorrhoids diverticular disease Plan: Await Pathology results Repeat Colonoscopy in 5 years due to fair prep on right or earlier if clinically indicated High fiber diet leaflet avoid straining at stool, epsom salts and sitz bath, anusol supps or cream GERd precautions, smoking cessation PPI if h pylori pos treat, confirm NSAId hx Above findings were reviewed with the patient and relevant handouts were provided if indicated.
[2023-06-06 08:12] VITALS: BP 93/52; PULSE 72; RESP 16; TEMP 36.8; O2SAT 97
[2023-06-06 08:27] VITALS: BP 96/56; PULSE 55; RESP 16; O2SAT 96
[2023-06-06 08:41] VITALS: BP 109/73; PULSE 65; RESP 16; O2SAT 95
[2023-06-06 08:56] VITALS: BP 118/77; PULSE 66; RESP 16; TEMP 36.8; O2SAT 95
== END 2023-06-06 09:34 | disposition home or self-care (01) ==
PROVIDERS: PCP Internal Medicine; Visit Provider Internal Medicine Gastroenterology
PROC: (CPT 45378; principal; 2023-06-06 07:30)
DX: Z12.11 Encounter for screening for malignant neoplasm of colon (principal); K57.30 Diverticulosis of large intestine without perforation or abscess without bleeding; K64.0 First degree hemorrhoids; Z87.19 Personal history of other diseases of the digestive system; K21.9 Gastro-esophageal reflux disease without esophagitis; K20.80 Other esophagitis without bleeding; K29.60 Other gastritis without bleeding; K29.80 Duodenitis without bleeding; K22.2 Esophageal obstruction; K44.9 Diaphragmatic hernia without obstruction or gangrene; F10.10 Alcohol abuse, uncomplicated; F32.A Depression, unspecified; Z98.890 Other specified postprocedural states; F17.210 Nicotine dependence, cigarettes, uncomplicated
CPT/HCPCS: 45378; 43239; 88305; 88342; J2250; J2704

== ENCOUNTER → 2023-06-06 06:34 | Outpatient (BNV) | payer OTHER, SELFPAY | PROVIDERS: PCP Internal Medicine; Visit Provider Internal Medicine Gastroenterology | DX: R10.32 Left lower quadrant pain (principal); K57.30 Diverticulosis of large intestine without perforation or abscess without bleeding; K64.0 First degree hemorrhoids; K21.00 Gastro-esophageal reflux disease with esophagitis, without bleeding; K22.2 Esophageal obstruction; K29.70 Gastritis, unspecified, without bleeding; K29.80 Duodenitis without bleeding | CPT/HCPCS: 43239; 45380 ==

== ENCOUNTER 2023-07-26 09:11 | Outpatient (REF) | payer OTHER, SELFPAY | END 2023-07-26 09:12 | disposition home or self-care (01) | LOC: HO.HOSX 09:11 | PROVIDERS: Visit Provider Orthopaedic Surgery | DX: Z13.89 Encounter for screening for other disorder (principal) ==

== ENCOUNTER 2023-08-09 11:14 | Outpatient (REF) | payer OTHER, SELFPAY ==
--- NOTE | ~2023-08-09 | XR_ITS ---
EXAMINATION: XR KNEE STANDING, BILATERAL XR KNEE, LEFT CLINICAL INFORMATION: Pain and unspecified knee. COMPARISON: Radiographs left knee 08/29/2021 and bilateral knees 06/02/2021. TECHNIQUE: AP standing view of bilateral knees as well as lateral and sunrise views of the left knee. FINDINGS: AP Standing Bilateral Knees: Redemonstration of small sclerotic foci overlying the right distal femur and proximal tibia, characteristic of bone islands. Mild narrowing of the medial compartment of the right knee with small medial marginal osteophytes. Left Knee: Progression of moderate narrowing of the medial compartment with degenerative changes. Small tricompartmental osteophytes. Small joint effusion. XR/XR knee standing BI IMPRESSION: 1. Progression of moderate degenerative changes in the left knee. 2. Mild degenerative changes in the right knee.
--- NOTE | ~2023-08-09 | XR_ITS ---
EXAMINATION: XR KNEE STANDING, BILATERAL XR KNEE, LEFT CLINICAL INFORMATION: Pain and unspecified knee. COMPARISON: Radiographs left knee 08/29/2021 and bilateral knees 06/02/2021. TECHNIQUE: AP standing view of bilateral knees as well as lateral and sunrise views of the left knee. FINDINGS: AP Standing Bilateral Knees: Redemonstration of small sclerotic foci overlying the right distal femur and proximal tibia, characteristic of bone islands. Mild narrowing of the medial compartment of the right knee with small medial marginal osteophytes. Left Knee: Progression of moderate narrowing of the medial compartment with degenerative changes. Small tricompartmental osteophytes. Small joint effusion. XR/XR knee LT 2V IMPRESSION: 1. Progression of moderate degenerative changes in the left knee. 2. Mild degenerative changes in the right knee.
== END 2023-08-09 11:15 | disposition home or self-care (01) ==
LOC: HO.HOSX 11:14
PROVIDERS: PCP Internal Medicine; Visit Provider Orthopaedic Surgery
DX: M25.562 Pain in left knee (principal); M95.8 Other specified acquired deformities of musculoskeletal system
CPT/HCPCS: 20610; 73560; 73565; 99212; J0665; J1100

== ENCOUNTER 2023-08-09 11:14 | Outpatient (AMB) | payer OTHER, SELFPAY ==
--- NOTE | 2023-08-09 11:38 | MHC.OFFVIS ---
Intake Vital Signs 08/09/23 11:48 Height 5 ft 9 in Weight 200 lb BMI 29.5 Intake Visit Reasons: OV - left Knee Injection Intake Note: Samuel is a 43 year old male who presents today for a follow up of his left knee OA. Last injection was administered on 01/21/23. He was provided with a Custom Medial Unloading Knee Brace but has not worn it much due to brace increasing his pain at medial side of knee. Xrays updated in office. Patient would like an injection today. S/P left knee osteal chondral allograft, DOS: 04/25/16 Allergies No Known Allergies [No Known Allergies*] Allergy (Verified 08/09/23 11:44) HPI OV - left Knee Injection HPI Details Samuel is a 43 year old male who presents today for a follow up of his left knee OA. He has a known osteochondral defect of the medial femoral condyle. Last injection was administered on 01/21/23. He was provided with a Custom Medial Unloading Knee Brace but has not worn it much due to brace increasing his pain at medial side of knee. Xrays updated in office. Patient would like an injection today. [facility] Medical History Anxiety Sleep apnea Diverticulitis Shortness of breath GERD (gastroesophageal reflux disease) Alcohol abuse Depression Surgical History History of wisdom tooth extraction History of left knee surgery History of umbilical hernia repair Family History Mother Mental health disorder Substance use disorder Father Mental health disorder Substance use disorder Social History Housing: Apartment Are you a primary long term acute care registered nurse to a significant other at home: No Do you presently have visiting nurse or other home services: No Alcohol intake: current Alcohol intake frequency: a few times a month Comment: Has bad Knee Patient Tobacco Use Status: Current someday Tobacco user Tobacco use type: Cigarette e-Cigarette/Vaping Use: Never Used Second Hand Smoke Exposure: No service: No Current occupational status: unemployed Cognitive needs: No Hearing needs: No Vision needs: No Physical Exam Vital Signs: BMI result Body Mass Index 29.5 Extrem Other: Mild effusion 0- 130 degrees motion Tenderness to palpation medial joint line left knee Office Procedures Joint Injection/Drain Joint Injection/Drain Details: Injected 1 mL of Decadron and 3 mL 1% lidocaine and 3 mL of 0.25% Marcaine. Site was prepped using aseptic technique. Patient tolerated the procedure well. Primary Site: left knee Approach Used: anterolateral Coding - Large joint Procedure code (CPT) selection complete Results Reviewed Results Reviewed: I personally reviewed relevant radiographs. Decreased medial joint space left knee Assessment & Plan Assessment & Plan (1) Osteochondral defect of femoral condyle: Code(s): M95.8 - Other specified acquired deformities of musculoskeletal system Plan: I injected his left knee. He continues to have intermittent discomfort. At this time however he is able to tolerate it and does not want any more aggressive intervention. Orders: Orders XR knee standing BI Today M25.569 - Pain in unspecified knee XR knee LT 2V Today M25.569 - Pain in unspecified knee Coding Level of Care Code Est Pt Level 3 (00345) Diagnoses Osteochondral defect of femoral condyle M95.8 CPT Codes Coding - Large joint: 09554 - Large joint ([id number])
[2023-08-09 11:48] VITALS: BMI 29.5
== END 2023-08-09 11:57 | disposition home or self-care (01) ==
PROVIDERS: PCP Internal Medicine; Visit Provider Orthopaedic Surgery
DX: M95.8 Other specified acquired deformities of musculoskeletal system (principal)
CPT/HCPCS: 20610; 99213

== ENCOUNTER 2023-09-13 11:15 | Outpatient (AMB) | payer OTHER, SELFPAY ==
--- NOTE | 2023-09-13 11:16 | MHC.OFFVIS ---
Vital Signs 09/13/23 11:18 Height 5 ft 9 in Weight 209 lb 7.026 oz BMI 30.9 BP 124/71 Blood Pressure Location Lt brachial Position Sitting Pulse 63 Intake Visit Reasons: follow up colo Intake Note: Samuel presents in the office as a follow up colonoscopy. CC: He is having pains in his stomach. Medications work but he still gets a pain in the stomach. 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: No Allergies No Known Allergies [No Known Allergies*] Allergy (Verified 09/13/23 11:18) HPI HPI follow up colo: Details: 43 yr old m here for f/u HE had EGD and Colonoscopy 06/19 Endoscopy Findings: schatzki ring hiatal hernia erosive esophagitis gastritis erosive duodenitis Colonoscopy Findings: internal hemorrhoids diverticular disease HE has noted some mild lower abdominal pain, across the lower quadrants he notes relief passing stool never tried miralax or fiber supplement he has been taking pantoprazole daily--helped his GERD a lot smoking at weekends alcohol drinks enough EXAM: GENERAL: The patient is well developed and nontoxic. VITAL SIGNS:see workflow HEENT: Nonicteric sclerae, PERRLA, EOMI. Oropharynx clear. Moist mucous membranes. Conjunctivae appear well perfused. No thyroid mass. CHEST: Chest wall is nontender. HEART: Regular rate and rhythm without murmurs. LUNGS: Clear to auscultation bilaterally. ABDOMEN: Soft, positive bowel sounds, nontender, no organomegaly.no flank tenderness SKIN: No rash, no excessive bruising, petechiae, or purpura. NEUROLOGIC: Cranial nerves II-XII intact without motor/sensory deficit. Psych: normal affect A/P: 1/ Constipation and diverticulosis PLAN: 1/ advised on high fiber diet--add miralax 2/ cont with pantoprazole 3/ advised on smoking and alcohol abstinence 4/ rept egd to r/o barretts [facility] Medical History Anxiety Sleep apnea Diverticulitis Shortness of breath GERD (gastroesophageal reflux disease) Alcohol abuse Depression Surgical History History of wisdom tooth extraction History of left knee surgery History of umbilical hernia repair Family History Mother Mental health disorder Substance use disorder Father Mental health disorder Substance use disorder Social History Housing: Apartment Are you a primary hospice care sales consultant to a significant other at home: No Do you presently have visiting nurse or other home services: No Alcohol intake: current Alcohol intake frequency: a few times a month Comment: Has bad Knee Patient Tobacco Use Status: Current someday Tobacco user Tobacco use type: Cigarette e-Cigarette/Vaping Use: Never Used Second Hand Smoke Exposure: No service: No Current occupational status: unemployed Cognitive needs: No Hearing needs: No Vision needs: No Physical Exam Vital Signs: Last Vital Signs Pulse 63 09/13/23 11:18 BP 124/71 09/13/23 11:18 BMI result Body Mass Index 30.9 Assessment & Plan Assessment & Plan (1) GERD (gastroesophageal reflux disease): Code(s): K21.9 - Gastro-esophageal reflux disease without esophagitis Category: Medical Plan see above Medications: New polyethylene glycol 3350 (Miralax) 17 grams PO DAILY 850 grams 2RF psyllium husk (Metamucil) 0.8 grams (2 x 0.4 gram) PO DAILY 60 caps 3RF Refilled pantoprazole 40 mg PO DAILY 60 tabs 2RF
[2023-09-13 11:18] VITALS: BP 124/71; PULSE 63; BMI 30.9
== END 2023-09-13 11:39 | disposition home or self-care (01) ==
PROVIDERS: PCP Internal Medicine; Visit Provider Internal Medicine Gastroenterology
DX: K21.9 Gastro-esophageal reflux disease without esophagitis (principal)
CPT/HCPCS: 99213

== ENCOUNTER → 2023-09-13 11:15 | Outpatient (BNVA) | payer OTHER, SELFPAY | PROVIDERS: PCP Internal Medicine; Visit Provider Internal Medicine Gastroenterology | DX: K21.9 Gastro-esophageal reflux disease without esophagitis (principal); R10.30 Lower abdominal pain, unspecified | CPT/HCPCS: 99212 ==

== ENCOUNTER 2023-09-19 09:12 | Day surgery (SDC) | payer OTHER, SELFPAY ==
--- NOTE | 2023-09-18 10:28 | P.CONAN_ITS ---
HPI - Anesthesia Eval Consult details Narrative: 43yo M for Upper Endoscopy s/p EGD and Bieber 05/2023 with [facility] PMF[facility] Active Problems Active Problems: All Active Problems Bilateral otitis media (Acute) Back pain (Acute) Urinary hesitancy (Acute) GERD (gastroesophageal reflux disease) (Acute) Osteochondral defect of femoral condyle (Acute) Knee pain (Acute) Diverticulitis (Acute) Physical exam (Acute) Alcohol abuse (Acute) Depression (Acute) Past Medical History Medical History Anxiety Sleep apnea Diverticulitis Shortness of breath GERD (gastroesophageal reflux disease) Alcohol abuse Depression Family History Family History Mother Mental health disorder Substance use disorder Father Mental health disorder Substance use disorder Family history of problems with anesthesia: No Surgical History Surgical History History of wisdom tooth extraction History of left knee surgery History of umbilical hernia repair History of Problems with Anesthesia: No Social History Social History Housing: Apartment Are you a primary occasional caregiver to a significant other at home: No Do you presently have visiting nurse or other home services: No Alcohol intake: current Alcohol intake frequency: 0-2 drinks per day Comment: Has bad Knee Patient Tobacco Use Status: Current everyday Tobacco user Tobacco use type: Cigarette Cigarettes Per Day: 1 e-Cigarette/Vaping Use: Never Used Second Hand Smoke Exposure: No service: No Current occupational status: unemployed Cognitive needs: No Hearing needs: No Vision needs: No Meds Allergies Allergy/AdvReac Type Severity Reaction Status Date / Time No Known Allergies Allergy Verified 09/13/23 11:18 [No Known Allergies*] Home Medications ?Medication ?Instructions ?Recorded ?Confirmed ?Last Taken ?Type sertraline 100 mg tablet (Zoloft) 100 mg PO DAILY 08/16/21 06/06/23 Unknown History bupropion HCl 300 mg 24 hr tablet, 300 mg PO DAILY 06/06/23 06/06/23 Unknown History extended release trazodone 50 mg tablet 100 mg PO BEDTIME PRN Anxiety 06/06/23 06/06/23 Unknown History Exam Pertinent Lab Results Pertinent Lab Results: Laboratory Tests 02/20/23 16:35 WBC 6.9 Hgb 16.5 Hct 50.5 Plt Count 302 Sodium 142 Potassium 4.0 Chloride 104 Carbon Dioxide 30 H BUN 10 Creatinine 1.06 Assessment and Plan Assessment Anesthesia Assessment: Chart Reviewed Final Anesthetic Review Family History of Problems with Anesthesia: No History of Problems with Anesthesia: No
--- NOTE | 2023-09-19 09:44 | P.HPSUR_ITS ---
Pre-Procedural Eval Section A - 24 Hr Update-Section A only Date of Service: 09/19/23 Section B - Complete if H&P > 30 days Chief Complaint: Gastro-esophageal reflux disease without esophagit Relevant Family History (Specify if Yes): No Relevant Social History: Alcohol Use Present Medications: see Short Stay Collaborative assessment Medical History: Significant History (Anxiety Sleep apnea Diverticulitis Shortness of breath GERD (gastroesophageal reflux disease) Alcohol abuse Depression) History of Previous Operations: Relevant previous surgery/procedure and date(s) ( History of wisdom tooth extraction History of left knee surgery History of umbilical hernia repair) Allergies: Allergies Allergy/AdvReac Type Severity Reaction Status Date / Time No Known Allergies Allergy Verified 09/13/23 11:18 [No Known Allergies*] Review of Systems Sugical H&P ROS: Negative: Constitution, Cardiovascular, Respiratory, Neurological, Psychiatric, Hem-Onc, Allergic/Immunologic, Gastrointestinal, Genitourinary, Musculoskeletal, Integumentary, Endocrine and E yes/Ears/Nose/Throat Exam Surgical H&P Exam: Normal: HEENT, Normal: Heart, Normal: Lungs, Normal: Extremities, Normal: Abdomen, Normal: Skin and Normal: Neurological Plan Diagnosis/Plan: Unchanged I have reviewed the history and physical and performed a pertinent physical examination on my patient. No changes have occurred unless specified. Time Spent With Patient Time: Total time managing care of this patient today ____ minutes.
[2023-09-19 10:03] VITALS: BP 147/83; PULSE 60; RESP 18; TEMP 36.6; O2SAT 100; BMI 31.7
--- NOTE | 2023-09-19 10:06 | P.CONAN_ITS ---
[facility] Active Problems Active Problems: All Active Problems Bilateral otitis media (Acute) Back pain (Acute) Urinary hesitancy (Acute) GERD (gastroesophageal reflux disease) (Acute) Osteochondral defect of femoral condyle (Acute) Knee pain (Acute) Diverticulitis (Acute) Physical exam (Acute) Alcohol abuse (Acute) Depression (Acute) Past Medical History Medical History Anxiety Sleep apnea Diverticulitis Shortness of breath GERD (gastroesophageal reflux disease) Alcohol abuse Depression Functional capacity: independent ambulation Family History Family History Mother Mental health disorder Substance use disorder Father Mental health disorder Substance use disorder Family history of problems with anesthesia: No Surgical History Surgical History History of wisdom tooth extraction History of left knee surgery History of umbilical hernia repair History of Problems with Anesthesia: No Social History Social History Housing: Apartment Are you a primary director of career resources to a significant other at home: No Do you presently have visiting nurse or other home services: No Alcohol intake: current Alcohol intake frequency: a few times a month Comment: Has bad Knee Patient Tobacco Use Status: Current someday Tobacco user Tobacco use type: Cigarette e-Cigarette/Vaping Use: Never Used Second Hand Smoke Exposure: No Advance Directives: No Advance Directives Information Provided: Yes service: No Current occupational status: unemployed Cognitive needs: No Hearing needs: No Vision needs: No Meds Allergies Allergy/AdvReac Type Severity Reaction Status Date / Time No Known Allergies Allergy Verified 09/13/23 11:18 [No Known Allergies*] Active Medications: Current Medications Lactated Ringer's (Lr) 1,000 mls @ 100 mls/hr IVCONT .Q10H [facility] Home Medications ?Medication ?Instructions ?Recorded ?Confirmed ?Last Taken ?Type sertraline 100 mg tablet (Zoloft) 100 mg PO DAILY 08/16/21 06/06/23 Unknown History bupropion HCl 300 mg 24 hr tablet, 300 mg PO DAILY 06/06/23 06/06/23 Unknown History extended release trazodone 50 mg tablet 100 mg PO BEDTIME PRN Anxiety 06/06/23 06/06/23 Unknown History Exam Airway Mallampati Class: III TM Dist: >3cm Neck ROM: Full Heart: RRR Lungs: CTA Assessment and Plan Assessment Anesthesia Assessment: Anesthesia Plan Discussed and Smoking Cess. Discussed Final Anesthetic Review Family History of Problems with Anesthesia: No History of Problems with Anesthesia: No ASA Class: III Final Preanesthetic Review: Meds/Allgs Chart Reviewed, Consent Obtained/Reviewed and Anes Risks/Benef Reviewed Patient Risk: Intermediate Procedure Risk: Low Anesthetic Plan Anesthetic Plan: MAC: Disposition: Standard PACU
[2023-09-19] MEDS: Lactated Ringers 1,000 ML 100 ML IVCONT (10:10)
--- NOTE | 2023-09-19 10:27 | W.PM.OPN ---
Operative Note Operative Note Date of Service: 09/19/23 Narrative: Procedure Description: EGD Indication: hx of esophagitis Anesthesia: MAC FLEXIBLE TRANSORAL UPPER GASTROINTESTINAL ENDOSCOPY UPPER ENDOSCOPY Consent: Indications for the procedure and potential complications of bleeding, perforation, reaction to medications and missed diagnosis were discussed with the patient and informed consent was obtained. Instrument: Olympus GIF H 190 J mid size upper endoscope Monitoring: Vital signs and clinical assessment, continuous EKG monitoring, Pulse oximetry, Carbon Dioxide monitoring and blood pressure monitoring were done throughout the procedure. Procedure: The patient was placed in the left lateral decubitis position and pre-procedure medications were administered and a bite block was placed. The endoscope was inserted into the mouth and advanced under direct vision to the third part of duodenum. A careful inspection was made as the upper endoscope was withdrawn including a retroflexed examination of the proximal stomach; Findings and interventions are described below. Findings: Larynx:normal Esophagus: GE junction at 40 cm, diaphragm hiatus at 42 cm, consistent with 2 cm sliding hiatal hernia. Possible short segment barretts with salmon pink tongues of tissue noted, bx taken -non obstructive schatzki ring noted. Stomach:Normal, Grade 3 flap valve on retroflexed examination of the cardia with lax LES Duodenum: normal Intervention: Biopsies as noted above Impression: possible barretts schatzki ring hiatal hernia lax LES PLAN: cont w/ PPI and multi vitamin GERD precautions
[2023-09-19 10:53] VITALS: BP 149/88; PULSE 96; RESP 16; TEMP 36.8; O2SAT 95
[2023-09-19 11:08] VITALS: BP 126/86; PULSE 69; RESP 20; TEMP 36.6; O2SAT 95
--- NOTE | 2023-09-19 14:41 | HO.POSTANES ---
Post Anesthesia Evaluation Post Anesthesia Evaluation Date of Service: 09/19/23 Vital Signs: Vital Signs Temp Pulse Resp BP Pulse Ox O2 Del Method 09/19/23 11:08 98 F 69 20 126/86 95 Room Air 09/19/23 10:53 98.2 F 96 16 149/88 H 95 Room Air 09/19/23 10:03 97.9 F 60 18 147/83 H 100 Room Air Anesthesia: Monitored Mental Status: Awake Pain Control: Satisfactory Nausea/Vomiting: None Hydration: Adequate Anesthesia-Related Issues: No Anes. Related Issues
== END 2023-09-19 11:43 | disposition home or self-care (01) ==
PROVIDERS: PCP Internal Medicine; Visit Provider Internal Medicine Gastroenterology
PROC: 0DJ08ZZ Inspection of Upper Intestinal Tract, Via Natural or Artificial Opening Endoscopic (ICD-10-PCS; CPT 43235; principal; 2023-09-19 11:20)
DX: K21.9 Gastro-esophageal reflux disease without esophagitis (principal); K22.2 Esophageal obstruction; K44.9 Diaphragmatic hernia without obstruction or gangrene; K22.4 Dyskinesia of esophagus; K57.30 Diverticulosis of large intestine without perforation or abscess without bleeding; F10.10 Alcohol abuse, uncomplicated; F17.210 Nicotine dependence, cigarettes, uncomplicated; Z79.899 Other long term (current) drug therapy
CPT/HCPCS: 43239; 88305; 88313

== ENCOUNTER → 2023-09-19 09:12 | Outpatient (BNV) | payer OTHER, SELFPAY | PROVIDERS: PCP Internal Medicine; Visit Provider Internal Medicine Gastroenterology | DX: K22.2 Esophageal obstruction (principal); K22.4 Dyskinesia of esophagus | CPT/HCPCS: 43239 ==

== ENCOUNTER 2023-12-13 10:39 | Outpatient (AMB) | payer OTHER, SELFPAY ==
--- NOTE | 2023-12-13 10:44 | A.OFFVIS_ITS ---
Vital Signs 12/13/23 10:46 Height 5 ft 9 in Weight 211 lb 10.3 oz BMI 31.3 BP 135/75 Blood Pressure Location Lt brachial Position Sitting Pulse 51 Intake Visit Reasons: Post EGD Intake Note: Samuel presents in the office as a f/u EGD. CC: Still having pains in the stomach. Allergies No Known Allergies [No Known Allergies*] Allergy (Verified 09/13/23 11:18) HPI HPI Post EGD: Details: 43 yr old m here for f/u for RECAP: HE had EGD and Colonoscopy 06/19 Endoscopy Findings: schatzki ring hiatal hernia erosive esophagitis gastritis erosive duodenitis Colonoscopy Findings: internal hemorrhoids diverticular disease repeat EGD 09/17 possible barretts schatzki ring hiatal hernia lax LES path:mild inflammation GEJ, no barretts INTERIM: He has constipation He can have abdominal pain and doscomfort due to this with bloating he has tried miralax and not that effective he has no reflux with PPI no nausea or vomiting diet is not as healthy -cutting down on red meat EXAM: GENERAL: The patient is well developed and nontoxic. VITAL SIGNS:see workflow HEENT: Nonicteric sclerae, PERRLA, EOMI. Oropharynx clear. Moist mucous membranes. Conjunctivae appear well perfused. No thyroid mass. CHEST: Chest wall is nontender. HEART: Regular rate and rhythm without murmurs. LUNGS: Clear to auscultation bilaterally. ABDOMEN: Soft, positive bowel sounds, nontender, no organomegaly.no flank tenderness SKIN: No rash, no excessive bruising, petechiae, or purpura. NEUROLOGIC: Cranial nerves II-XII intact without motor/sensory deficit. Psych: normal affect A/P: 1/ Constipation and diverticulosis 2/ GERD- better with medication PLAN: 1/ trial of trulance, feels miralax doesnt help 2/ cont with pantoprazole 3/ advised on smoking and alcohol abstinence again 4/ if ongoing bloating then trial of abx PFSH Medical History (Updated 12/13/23 @ 11:11 by Mane Terrell MD) Anxiety Sleep apnea Diverticulitis Shortness of breath GERD (gastroesophageal reflux disease) Alcohol abuse Depression Surgical History (Updated 12/13/23 @ 10:45 by EZIO Rowland) History of esophagogastroduodenoscopy (EGD) History of wisdom tooth extraction History of left knee surgery History of umbilical hernia repair Family History Mother Mental health disorder Substance use disorder Father Mental health disorder Substance use disorder Social History Housing: Apartment Are you a primary physician locums urgent care to a significant other at home: No Do you presently have visiting nurse or other home services: No Alcohol intake: current Alcohol intake frequency: 0-2 drinks per day Comment: Has bad Knee Patient Tobacco Use Status: Current everyday Tobacco user Tobacco use type: Cigarette Cigarettes Per Day: 1 e-Cigarette/Vaping Use: Never Used Second Hand Smoke Exposure: No service: No Current occupational status: unemployed Cognitive needs: No Hearing needs: No Vision needs: No Physical Exam Vital Signs: Last Vital Signs Pulse 51 12/13/23 10:46 BP 135/75 12/13/23 10:46 BMI result Body Mass Index 31.3 Assessment & Plan Assessment & Plan (1) Constipation by delayed colonic transit: Code(s): K59.01 - Slow transit constipation Category: Medical Plan: trulance Medications: New plecanatide (Trulance) 3 mg PO DAILY 30 tabs 3RF Coding Level of Care Code Est Pt Level 3 (12055) Diagnoses Constipation by delayed colonic transit K59.01
[2023-12-13 10:46] VITALS: BP 135/75; PULSE 51; BMI 31.3
== END 2023-12-13 11:22 | disposition home or self-care (01) ==
PROVIDERS: PCP Internal Medicine; Visit Provider Internal Medicine Gastroenterology
DX: K59.01 Slow transit constipation (principal)
CPT/HCPCS: 99213

== ENCOUNTER → 2023-12-13 10:39 | Outpatient (BNVA) | payer OTHER, SELFPAY | PROVIDERS: PCP Internal Medicine; Visit Provider Internal Medicine Gastroenterology | DX: K59.01 Slow transit constipation (principal) | CPT/HCPCS: 99212 ==

== ENCOUNTER 2024-02-20 09:40 | Outpatient (AMB) | payer OTHER, SELFPAY ==
[2024-02-20 09:41] VITALS: BP 136/72; PULSE 64; O2SAT 96; BMI 30.4
--- NOTE | 2024-02-20 09:41 | A.OFFPC_ITS ---
Vital Signs 02/20/24 09:41 Height 5 ft 9 in Weight 206 lb BMI 30.4 BP 136/72 Blood Pressure Location Lt brachial Position Sitting Pulse 64 Pulse Source Pulse Oximeter Pulse Oximetry (%) 96 Oxygen Delivery Method Room Air Intake Visit Reasons: ANNUAL Junior Network Administrator Required: No Allergies No Known Allergies [No Known Allergies*] Allergy (Verified 02/20/24 09:45) Medication List - Last Reconciled 02/20/24 by Mika Thomas MD bupropion HCl XL 300 mg PO DAILY hydroxyzine pamoate 25 mg PO BID pantoprazole 40 mg PO DAILY plecanatide (Trulance) 3 mg PO DAILY polyethylene glycol 3350 (Miralax) 17 grams PO DAILY prazosin mg PO psyllium husk (Metamucil) 0.8 grams (2 x 0.4 gram) PO DAILY sertraline (Zoloft) 100 mg PO DAILY trazodone 100 mg PO BEDTIME PRN Tobacco use date assessed: 02/20/24 Dental Screening Dental Screen Date: 02/20/24 Did you have a dental visit in the last 12 months?: No Did you have a dental problem in the last 6 months where you did not have access to dental care?: No Was dental information given to patient?: Yes HPI ANNUAL HPI Details depression; sees psych; stable PFSH Medical History (Updated 02/20/24 @ 09:53 by Mika Thomas MD) Anxiety Sleep apnea Diverticulitis Shortness of breath GERD (gastroesophageal reflux disease) Alcohol abuse Depression Surgical History (Updated 12/13/23 @ 10:45 by EZIO Rowland) History of esophagogastroduodenoscopy (EGD) History of wisdom tooth extraction History of left knee surgery History of umbilical hernia repair Family History Mother Mental health disorder Substance use disorder Father Mental health disorder Substance use disorder Social History Housing: Apartment Are you a primary lawn caretaker to a significant other at home: No Do you presently have visiting nurse or other home services: No Alcohol intake: current Alcohol intake frequency: 0-2 drinks per day Comment: Has bad Knee Patient Tobacco Use Status: Current everyday Tobacco user Tobacco use type: Cigarette Cigarettes Per Day: 1 e-Cigarette/Vaping Use: Never Used Second Hand Smoke Exposure: No service: No Current occupational status: unemployed Cognitive needs: No Hearing needs: No Vision needs: No Questionnaire PHQ-9 Over the last 2 weeks, how often have you been bothered by any of the following problems? 1. Little interest or pleasure in doing things: several days 2. Feeling down, depressed, or hopeless: several days 3. Trouble falling or staying asleep, or sleeping too much: several days 4. Feeling tired or having little energy: several days 5. Poor appetite or overeating: several days 6. Feeling bad about yourself - or that you are a failure or have let yourself or your family down: several days 7. Trouble concentrating on things, such as reading the newspaper or watching television: several days 8. Moving or speaking so slowly that other people could have noticed. Or the opposite - being so fidgety or restless that you have been moving around a lot more than usual: several days 9. Thoughts that you would be better off or of hurting yourself in some way : several days Total score: 9 Source: Developed by Drs. Eliazar Ross, Taina Fish, Stephen Abarca and colleagues, with an educational susie from [employer]. Thrive Questionnaire Date Thrive assessed: 02/20/24 I am a: Patient What is your living situation today?: I do not have a steady places to live I choose not to answer this question Within the past 12 months, did the food you bought not last and you didn't have the money to get more?: I choose not to answer this question Within the past 12 months, did you worry whether your food would run out before you got money to buy more?: I choose not to answer this question Do you have trouble paying for medicines?: I choose not to answer this question Do you have trouble getting transportation to medical appointments?: I choose not to answer this question Do you have trouble paying your heating and electricity bill?: I choose not to answer this question Do you have trouble taking care of your child, family member or friend?: I choose not to answer this question Do you have trouble with day-to-day activities such as bathing, preparing meals, shopping, managing finances, etc.?: I choose not to answer this question Are you currently unemployed and looking for a job?: I choose not to answer this question Are you interested in more education?: I choose not to answer this question Please select the resources that you would like help with: None Currently or been in a relationship where the following occur: I choose not to answer THRIVE Score: 1 AUDIT C Alcohol Use Questionnaire (AUDIT-C) 1. How often do you have a drink containing alcohol?: Never Total Score: 0 CLEM-7 AMB Questionnaire CLEM-7 Date CLEM - 7 assessed: 02/20/24 Feeling nervous, anxious, or on edge: 1 = Several days Not being able to stop or control worryin = Several days Worrying too much about different things: 1 = Several days Trouble relaxin = Several days Being so restless that it is hard to sit still: 1 = Several days Becoming easily annoyed or irritable: 1 = Several days Feeling afraid as if something awful might happen: 1 = Several days Total CLEM-7 score (0-4 normal; 5-9 mild; 10-14 moderate; 15-21 severe): 7 Source: Developed by Drs. Eliazar Ross, Taina Fish, Stephen Abarca and colleagues, with an educational susie from [employer]. Review of Systems Const Denies chills, Denies fatigue, Denies headache(s) and Denies weight loss Eyes Denies change in vision, Denies diplopia and Denies eye pain ENT Reports Normal hearing present, Denies vertigo, Denies dizziness, Denies headache(s) and Denies nasal discharge Card Denies chest pain, Denies rapid heart rate and Denies dyspnea on exertion Resp Denies chest congestion, Denies cough, Denies pain with cough and Denies dyspnea on exertion GI Denies abdominal pain, Denies hematochezia and Denies change in bowel habits Musc Denies myalgias, Denies arthralgias and Denies joint swelling Skin/Breast Denies lesions and Denies unusual bruising Neuro Reports Normal hearing present, Denies vertigo, Denies dizziness, Denies headache(s) and Denies focal weakness Endo Denies fatigue Physical exam (Primary Care) Vital Signs: Last Vital Signs Pulse 64 02/20/24 09:41 BP 136/72 02/20/24 09:41 Pulse Ox 96 02/20/24 09:41 Oxygen Delivery Method Room Air 02/20/24 09:41 BMI result Body Mass Index 30.4 Tobacco/Smoking Status: Tobacco use Status Tobacco use date assessed 02/20/24 02/20/24 09:46 Patient Tobacco Use Status Current everyday Tobacco 02/20/24 09:46 Tobacco use type Cigarette 02/20/24 09:46 e-Cigarette/Vaping Use Never Used 02/20/24 09:46 PHQ-9: PHQ-9 Score PHQ-9: Total score 9 02/20/24 09:46 Thrive Assessment: Date of Thrive Assessment Date Thrive assessed 02/20/24 02/20/24 09:46 Currently or been in a relationship where the following occur: I choose not to answer Const General: cooperative, healthy appearing, comfortable and no acute distress HENMT Head: Yes normocephalic and Yes atraumatic Eyes General: appearance normal, both eyes and all related structures Neck Neck: Yes full ROM and Yes no lymphadenopathy Resp Effort & Inspection: normal respiratory effort Auscultation: clear to auscultation bilaterally Percussion: percussion normal Cardio Jugular venous distension: no JVD Palpation: normal PMI Rate: regular rate Rhythm: regular rhythm Heart sounds: S1 normal heart sound present and S2 normal heart sound present GI Inspection: Yes normal to inspection Palpation (GI): No hepatosplenomegaly present Auscultation: normal bowel sounds Skin Lesions: no lesions Rashes: no rashes Neuro Cranial nerves: Yes Normal hearing present Extrem General: Yes no clubbing, cyanosis or edema Assessment and Plan Assessment & Plan (1) Physical exam: Code(s): Z00.00 - Encounter for general adult medical examination without abnormal findings Plan: stable; do labs (2) Depression: Code(s): F32.A - Depression, unspecified Plan: per psych Orders: Orders Lipid Panel Today Z13.220 - Encounter for screening for lipoid disorders Thyroid Stimulating Hormone Today Z13.29 - Encounter for screening for other suspected endocrine disorder Complete Blood Count Auto Diff Today Z13.0 - Encounter for screening for diseases of the blood and blood-forming organs and certain disorders involving the immune mechanism Comprehensive [place]. Panel Fast Today Z13.9 - Encounter for screening, unspecified Coding Level of Care Code Est Pt Prev Care 40-64y(12714) Diagnoses Physical exam Z00.00 Depression F32.A
== END 2024-02-20 09:54 | disposition home or self-care (01) ==
PROVIDERS: PCP Internal Medicine; Visit Provider Internal Medicine
DX: Z00.00 Encounter for general adult medical examination without abnormal findings (principal); F32.A Depression, unspecified

== ENCOUNTER → 2024-02-20 09:40 | Outpatient (BNVA) | payer OTHER, SELFPAY | PROVIDERS: PCP Internal Medicine; Visit Provider Internal Medicine | DX: Z00.00 Encounter for general adult medical examination without abnormal findings (principal); F32.A Depression, unspecified; F17.200 Nicotine dependence, unspecified, uncomplicated; Z71.6 Tobacco abuse counseling | CPT/HCPCS: 96127; 99396 ==

== ENCOUNTER 2024-06-04 13:58 | Outpatient (AMB) | payer OTHER, SELFPAY ==
--- NOTE | 2024-06-04 14:03 | MHC.OFFVIS ---
Intake Visit Reasons: Inj-Left knee inj-last 08/09/23 Intake Note: Samuel is a 44 year old male who presents today for a repeat Left Knee Injection. Last injection was administered on 08/09/23. Patient reports that he had good relief with the last injection and he would like to repeat today. Allergies No Known Allergies [No Known Allergies*] Allergy (Verified 02/20/24 09:45) HPI HPI Inj-Left knee inj-last 08/09/23: Details: Samuel is a 44 year old male who presents today for a repeat Left Knee Injection. Last injection was administered on 08/09/23. Patient reports that he had good relief with the last injection and he would like to repeat today. He has a known osteochondral injury and has recurrent swelling and pain. [facility] Medical History (Updated 02/20/24 @ 09:53 by Mika Thomas MD) Anxiety Sleep apnea Diverticulitis Shortness of breath GERD (gastroesophageal reflux disease) Alcohol abuse Depression Surgical History (Updated 12/13/23 @ 10:45 by EZIO Rowland) History of esophagogastroduodenoscopy (EGD) History of wisdom tooth extraction History of left knee surgery History of umbilical hernia repair Family History Mother Mental health disorder Substance use disorder Father Mental health disorder Substance use disorder Social History Housing: Apartment Are you a primary pet care assistant to a significant other at home: No Do you presently have visiting nurse or other home services: No Alcohol intake: current Alcohol intake frequency: 0-2 drinks per day Comment: Has bad Knee Patient Tobacco Use Status: Current everyday Tobacco user Tobacco use type: Cigarette Cigarettes Per Day: 1 e-Cigarette/Vaping Use: Never Used Second Hand Smoke Exposure: No service: No Current occupational status: unemployed Cognitive needs: No Hearing needs: No Vision needs: No Physical Exam Extrem Other: Mild effusion 0- 130 degrees motion Tenderness to palpation medial joint line left knee Office Procedures Joint Inj/Aspir; Non-Pain Clin Joint Injection/Drain Details: Injected 1 mL of Decadron and 3 mL 1% lidocaine and 3 mL of 0.25% Marcaine. Site was prepped using aseptic technique. Patient tolerated the procedure well. Shoulders, Hips, Knees, Knee Large Joint Injection : Left Knee Coding Procedure code (CPT) selection complete Assessment & Plan Assessment & Plan (1) Osteochondral defect of femoral condyle: Code(s): M95.8 - Other specified acquired deformities of musculoskeletal system Category: Medical Plan: Patient does not want additional surgery. He feels the injections are helpful. He last had 1 about 9 months ago so I injected his left knee today. He can follow up as needed. Coding Level of Care Code Est Pt Level 3 (07895) Diagnoses Osteochondral defect of femoral condyle M95.8 CPT Codes Shoulders, Hips, Knees, - Knee Large Joint Injection : Left Knee ([id number])
== END 2024-06-04 14:23 | disposition home or self-care (01) ==
PROVIDERS: PCP Internal Medicine; Visit Provider Orthopaedic Surgery
DX: M95.8 Other specified acquired deformities of musculoskeletal system (principal)
CPT/HCPCS: 20610; 99213

== ENCOUNTER → 2024-06-04 13:58 | Outpatient (BNVA) | payer OTHER, SELFPAY | PROVIDERS: PCP Internal Medicine; Visit Provider Orthopaedic Surgery | DX: M95.8 Other specified acquired deformities of musculoskeletal system (principal) | CPT/HCPCS: 20610; 99212; J0665; J1100; J2003 ==

== ENCOUNTER 2024-06-08 11:36 | Outpatient (AMB) | payer OTHER, SELFPAY ==
[2024-06-08 11:44] VITALS: BP 121/73; PULSE 71; BMI 32.4
--- NOTE | 2024-06-08 11:44 | A.OFFVIS_ITS ---
Vital Signs 06/08/24 11:44 Height 5 ft 9 in Weight 219 lb 2.232 oz BMI 32.4 BP 121/73 Blood Pressure Location Lt brachial Position Sitting Pulse 71 Intake Visit Reasons: 6 month follow up Intake Note: Samuel returns in 6 months follow up of constipation. CC: Patient reports trouble urinating. He states that he takes the Trulance PRN and that it helps with constipation.Denies other GI symptoms today. 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: No Allergies No Known Allergies [No Known Allergies*] Allergy (Verified 06/08/24 11:51) HPI HPI 6 month follow up: Details: 44 yr old m here for f/u for RECAP: HE had EGD and Colonoscopy 06/19 Endoscopy Findings: schatzki ring hiatal hernia erosive esophagitis gastritis erosive duodenitis Colonoscopy Findings: internal hemorrhoids diverticular disease repeat EGD 09/17 possible barretts schatzki ring hiatal hernia lax LES path:mild inflammation GEJ, no barretts INTERIM: He is happy with trulance, he has no reflux with PPI partner is trying to make him eat healthy no nausea or vomiting He has constipation he has issues with abn urine stream EXAM: GENERAL: The patient is well developed and nontoxic. VITAL SIGNS:see workflow HEENT: Nonicteric sclerae, PERRLA, EOMI. Oropharynx clear. Moist mucous membranes. Conjunctivae appear well perfused. No thyroid mass. CHEST: Chest wall is nontender. HEART: Regular rate and rhythm without murmurs. LUNGS: Clear to auscultation bilaterally. ABDOMEN: Soft, positive bowel sounds, nontender, no organomegaly.no flank tender ness SKIN: No rash, no excessive bruising, petechiae, or purpura. NEUROLOGIC: Cranial nerves II-XII intact without motor/sensory deficit. Psych: normal affect injured knee, using stick A/P: 1/ Constipation and diverticulosis 2/ GERD- better with medication 3/ abn urine flow PLAN: 1/ cont with trulance 2/ cont with pantoprazole 3/ check psa and labs, urology referral 4/ await ortho input for knee [facility] Medical History Anxiety Sleep apnea Diverticulitis Shortness of breath GERD (gastroesophageal reflux disease) Alcohol abuse Depression Surgical History History of esophagogastroduodenoscopy (EGD) History of wisdom tooth extraction History of left knee surgery History of umbilical hernia repair Family History Mother Mental health disorder Substance use disorder Father Mental health disorder Substance use disorder Social History Housing: Apartment Are you a primary dialysis patient care technician to a significant other at home: No Do you presently have visiting nurse or other home services: No Alcohol intake: current Alcohol intake frequency: 0-2 drinks per day Comment: Has bad Knee Patient Tobacco Use Status: Current everyday Tobacco user Tobacco use type: Cigarette Cigarettes Per Day: 1 e-Cigarette/Vaping Use: Never Used Second Hand Smoke Exposure: No service: No Current occupational status: unemployed Cognitive needs: No Hearing needs: No Vision needs: No Physical Exam Vital Signs: Last Vital Signs Pulse 71 06/08/24 11:44 BP 121/73 06/08/24 11:44 BMI result Body Mass Index 32.4 Assessment & Plan Assessment & Plan (1) Abnormal finding in urine: Code(s): R82.90 - Unspecified abnormal findings in urine Category: Medical Plan: as above Orders: Orders UA CC w/rflx Micro + Cult Today R30.0 - Dysuria, R82.90 - Unspecified abnormal findings in urine Complete Blood Count Auto Diff Today R82.90 - Unspecified abnormal findings in urine Comprehensive Met. Panel Today K75.81 - Nonalcoholic steatohepatitis (GAXIOLA), R82.90 - Unspecified abnormal findings in urine CT NG by PCR Today R82.90 - Unspecified abnormal findings in urine PSA, Ultra Sensitive Today R82.90 - Unspecified abnormal findings in urine Referrals Urology Referral R82.90 - Unspecified abnormal findings in urine Medications: Refilled polyethylene glycol 3350 (Miralax) 17 grams PO DAILY 850 grams 2RF Coding Level of Care Code Est Pt Level 4 (39766) Diagnoses Abnormal finding in urine R82.90
== END 2024-06-08 12:22 | disposition home or self-care (01) ==
PROVIDERS: PCP Internal Medicine; Visit Provider Internal Medicine Gastroenterology
DX: R82.90 Unspecified abnormal findings in urine (principal)
CPT/HCPCS: 99214

== ENCOUNTER → 2024-06-08 11:36 | Outpatient (BNVA) | payer OTHER, SELFPAY | PROVIDERS: PCP Internal Medicine; Visit Provider Internal Medicine Gastroenterology | DX: R82.90 Unspecified abnormal findings in urine (principal) | CPT/HCPCS: 99212 ==

== ENCOUNTER 2024-06-11 23:19 | Emergency (ER) | payer OTHER, SELFPAY ==
--- NOTE | ~2024-06-11 | XR_ITS ---
CLINICAL HISTORY: fall on left knee 4 view left knee Comparison: DX/NM/SR - XR KNEE STANDING BI - 08/09/23 11:40 EDT Findings: No fractures or dislocations. No significant arthritic change or erosions. No joint effusion. No radiopaque foreign body. IMPRESSION: 1. No acute findings. This document has been electronically signed by: Eduardo Cannon MD on 06/12/2024 00:21:18
[2024-06-11 23:41] VITALS: BP 137/87; PULSE 65; RESP 18; TEMP 36.7; O2SAT 95; BMI 31.6
[2024-06-12 04:28] VITALS: BP 135/73; PULSE 67; RESP 16; TEMP 36.4; O2SAT 99
--- NOTE | 2024-06-12 05:44 | PC.NURSE ---
pt awaiting to see provider.
--- NOTE | 2024-06-12 06:02 | ED.LOWEXIN ---
HPI - Extremity Injury (Lower) General Chief Complaint: Extremity Injury, Lower Stated Complaint: left knee inj after fall, swollen Time Seen by Provider: 06/12/24 06:01 Source: patient Mode of arrival: ambulatory Limitations: no limitations History of Present Illness ED Provider: Dr. Iggy Freitas HPI Narrative: 44-year-old male with a history of sleep apnea, diverticulitis, GERD, alcohol use disorder depression and anxiety who presents emergency department for evaluation of left knee injury which occurred 6 days prior to evaluation. The patient states that he lost his balance and landed on both of his knees. He believes that he may have twisted his left knee as well. Patient initially went to [facility] but due to the long wait was not seen. He states that he has been walking with a cane but he was knee is gotten worse. Patient states he has injured his left knee in the past, had surgery by Dr. Anderson and gets knee injections. Patient's last knee injection was on 06/04/2024 in the patient was injected Decadron for osteochondral defect of the femoral condyle. Related Data Home Medications ?Medication ?Instructions ?Recorded ?Confirmed bupropion HCl 300 mg 24 hr tablet, 300 mg PO DAILY 06/06/23 02/20/24 extended release trazodone 50 mg tablet 100 mg PO BEDTIME PRN Anxiety 06/06/23 02/20/24 hydroxyzine pamoate 25 mg capsule 25 mg PO BID 12/13/23 02/20/24 prazosin 5 mg capsule 5 mg PO .qd 06/08/24 trazodone 100 mg tablet 200 mg PO BEDTIME PRN 06/08/24 Previous Rx's ?Medication ?Instructions ?Recorded pantoprazole 40 mg tablet,delayed 40 mg PO DAILY #60 tabs 09/13/23 release psyllium husk 0.4 gram capsule 0.8 g (2 x 0.4 gram) PO DAILY #60 09/13/23 (Metamucil) caps plecanatide 3 mg tablet (Trulance) 3 mg PO DAILY #30 tabs 12/16/23 polyethylene glycol 3350 17 17 g PO DAILY #850 grams 06/08/24 gram/dose oral powder (Miralax) ibuprofen 400 mg tablet 400 mg PO TID PRN fever or pain 06/12/24 #30 tabs oxycodone 5 mg tablet 5 mg PO Q6H PRN pain #14 tabs 06/12/24 Allergies Allergy/AdvReac Type Severity Reaction Status Date / Time No Known Allergies Allergy Verified 06/11/24 23:44 [No Known Allergies*] Review of Systems Review of Systems: Yes all other systems are reviewed and are negative [facility] Past Medical History Medical History Anxiety Sleep apnea Diverticulitis Shortness of breath GERD (gastroesophageal reflux disease) Alcohol abuse Depression Surgical History History of esophagogastroduodenoscopy (EGD) History of wisdom tooth extraction History of left knee surgery History of umbilical hernia repair Family History Family History Mother Mental health disorder Substance use disorder Father Mental health disorder Substance use disorder Social History Social History Housing: Apartment Are you a primary healthcare specialist to a significant other at home: No Do you presently have visiting nurse or other home services: No Alcohol intake: current Alcohol intake frequency: does not drink Comment: Has bad Knee Patient Tobacco Use Status: Current everyday Tobacco user Tobacco use type: Cigarette Cigarettes Per Day: 1 Smoked in Last 30 Days: No e-Cigarette/Vaping Use: Never Used Second Hand Smoke Exposure: No Use of substances other than those prescribed or required for medical reasons: No Advance Directives: No Advance Directives Information Provided: Yes Do you have a plan to hurt others: No Plan service: No Current occupational status: unemployed Cognitive needs: No Hearing needs: No Vision needs: No Physical Exam Vital Signs: Vital Signs: Last Vital Signs Temp 97.8 F 06/12/24 07:24 Pulse 53 06/12/24 07:24 Resp 16 06/12/24 07:24 BP 137/71 06/12/24 07:24 Pulse Ox 96 06/12/24 07:24 O2 Del Method Room Air 06/12/24 07:24 BMI result Body Mass Index 31.6 Vital signs were stable exam: Extremities: Patient's right lower extremity was normal. Left lower extremity revealed ecchymosis and soft tissue swelling of the knee. Patient has increased pain with flexion extension as well as lateral movement of the knee. There is no increased warmth or erythema. The patient's extremities are neurovascular intact Medications Administered Discontinued Medications Generic Name Dose Route Start Last Admin Trade Name Edgarq PRN Reason Stop Dose Admin Ibuprofen 400 mg 06/12/24 06:37 06/12/24 07:07 Ibuprofen 400 Mg Tablet PO 06/12/24 06:38 400 mg ONCE STA Administration Oxycodone HCl 5 mg 06/12/24 06:37 06/12/24 07:08 Oxycodone Hcl Immed Release 5 Mg Tablet PO 06/12/24 06:38 5 mg ONCE STA Administration Medical Decision Making Medical Decision Making MDM Narrative: 44-year-old male with a history of sleep apnea, diverticulitis, GERD, alcohol use disorder depression and anxiety who presents emergency department for evaluation of left knee injury which occurred 6 days prior to evaluation. vital signs were normal. The left knee exam revealed ecchymosis and soft tissue swelling over the knee with increased pain with flexion, extension and lateral movement of the knee. Extremities neurovascular intact. Differential diagnosis: Includes but is not limited to Patella fracture, tibial plateau fracture, contusion, sprain, strain, ligament injury Course: The patient's x-rays revealed no acute fracture on my reading and on the radiologist reading as well. Patient most likely has a contusion and sprain to the ligaments in his knee. The patient was placed in a knee immobilizer and given crutches. He was advised to use these for 1-2 weeks until you can follow-up with his orthopedic provider , Dr. Anderson. The patient was advised to take ibuprofen for his pain. For pain not relieved by ibuprofen he was prescribed oxycodone. He was given printed and verbal instructions and discharged home. Admission/Observation Consideration of admission/observation: Escalation of care including admission/observation considered (No) Independent Interpretation I performed an independent interpretation of an: Plain X-Ray Interpretation: my independent interpretation of patient's four view x-ray is as follows: No acute fracture seen Radiology Impression Discussion of test interpretation with radiology: I have reviewed the radiologist's reading. Radiologist Impression: 4 view left knee Comparison: DX/MS/SR - XR KNEE STANDING BI - 08/09/23 11:40 EDT Findings: No fractures or dislocations. No significant arthritic change or erosions. No joint effusion. No radiopaque foreign body. IMPRESSION: 1. No acute findings. This document has been electronically signed by: Eduardo Cannon MD on 06/12/2024 00:21:18 External Record Review External record reviewed: Office record Prescription Management I considered prescription management with: Pain Medication Discharge Plan Discharge Clinical Impression: Contusion of knee, left, Left knee sprain Patient Disposition: Home, Self-Care Additional Instructions: The x-ray of your knee was normal, there were no broken bones seen by me or the radiologist. Your exam is consistent with a bruise/contusion and twisting/sprain of your knee. Wear the knee immobilizer for 1 week and use the crutches to relieve the pressure on your left knee for 1 week. Take ibuprofen 200 mg pills, 3 pills every 6 hours as needed for pain. For pain not relieved by ibuprofen take oxycodone 5 mg pills, 1 pill every 4 hours as needed for pain. Do not drive or work while taking this medication since they can cause sleepiness. Oxycodone is a narcotic medication that can be addicting. If you are concerned about addiction you can ask the pharmacist for less pills or do not get this prescription filled. Follow-up with Dr. Anderson in 1-2 weeks for re-evaluation. Please return to the emergency department if your symptoms get worse or if you develop any symptoms that are concerning to you. Prescriptions: New ibuprofen 400 mg tablet 400 mg PO TID PRN (Reason: fever or pain) Qty: 30 0RF oxycodone 5 mg tablet 5 mg PO Q6H PRN (Reason: pain) Qty: 14 0RF Rx Instructions: Partial Fill upon patient request. No Action Trulance 3 mg tablet 3 mg PO DAILY Qty: 30 3RF trazodone 50 mg tablet 100 mg PO BEDTIME PRN (Reason: Anxiety) bupropion HCl 300 mg tablet extended release 24 hr 300 mg PO DAILY pantoprazole 40 mg tablet,delayed release (DR/EC) 40 mg PO DAILY Qty: 60 2RF psyllium husk [Metamucil] 0.4 gram capsule 0.8 g PO DAILY Qty: 60 3RF hydroxyzine pamoate 25 mg capsule 25 mg PO BID prazosin 5 mg capsule 5 mg PO .qd polyethylene glycol 3350 [Miralax] 17 gram/dose powder 17 g PO DAILY Qty: 850 2RF trazodone 100 mg tablet 200 mg PO BEDTIME PRN Interventions: ED Discharge Assessment Last Done: 06/12/24 07:24 Discharge Date/Time: 06/12/24 07:28 Print Language: Hong Konger
[2024-06-12 06:11] VITALS: BP 137/71; PULSE 53; RESP 16; TEMP 36.6; O2SAT 96
--- NOTE | 2024-06-12 06:15 | PC.NURSE ---
ordered tyneol for pt, pt refused and only wanted an Ice pack
[2024-06-12] MEDS: Ibuprofen 400 MG TABLET PO (07:07)
[2024-06-12] MEDS: oxyCODONE HCl Immed Release 5 MG TABLET PO (07:08)
[2024-06-12 07:24] VITALS: BP 137/71; PULSE 53; RESP 16; TEMP 36.6; O2SAT 96
== END 2024-06-12 07:28 | disposition home or self-care (01) ==
PROVIDERS: Emergency Provider Emergency Medicine Emergency Medical Services; PCP Internal Medicine
DX: S80.02XA Contusion of left knee, initial encounter (principal); S83.92XA Sprain of unspecified site of left knee, initial encounter; X50.1XXA Overexertion from prolonged static or awkward postures, initial encounter; M25.562 Pain in left knee; Y93.89 Activity, other specified; Y92.9 Unspecified place or not applicable; Y99.9 Unspecified external cause status
CPT/HCPCS: 73562; 99283; 99284

== ENCOUNTER → 2024-06-11 23:55 | Outpatient (BNV) | payer OTHER, SELFPAY | PROVIDERS: PCP Internal Medicine; Visit Provider Radiology Diagnostic Radiology | DX: M25.562 Pain in left knee (principal) | CPT/HCPCS: 73562 ==

== ENCOUNTER 2024-08-04 13:04 | Outpatient (REF) | payer MEDICAID, SELFPAY ==
[2024-08-04 14:12] LABS: MANUAL DIFF FLAG NO
[2024-08-04 14:35] LABS: Basophils Percent Auto 0.3 % (0-2); Eosinophils Absolute Auto 0.1 X10*3/uL (0.0-0.4); Eosinophils Percent Auto 1.7 % (0-4); Hematocrit 45.7 % (42.0-52.0); Hemoglobin 15.6 g/dl (14.0-18.0); Imm Gran Abs Auto 0.03 X10*3/uL (0.00-0.03); Imm Gran Pct Auto 0.4 % (0.0-0.4); Lymphocytes Absolute Auto 1.8 X10*3/uL (1.2-4.9); Lymphocytes Percent Auto 26.3 % (20-40); Mean Corpuscular HGB Conc 34.1 g/dl (31.0-36.0); Mean Corpuscular Hemoglobin 30.2 pg (27.0-33.0); Mean Corpuscular Volume 88.6 fL (80.0-98.0); Mean Platelet Volume 9.3 fL (9.4-12.4); Monocytes Absolute Auto 0.5 X10*3/uL (0.1-1.2); Monocytes Percent Auto 7.3 % (2-11); Neutrophils Absolute Auto 4.4 x10*3/uL (2.0-8.3); Platelet Count 286 X10*3/uL (160-400); Red Blood Count 5.16 X10*6/uL (4.60-5.80); Red Cell Distribution Width 11.8 % (11.0-16.0); White Blood Count 6.9 X10*3/uL (4.8-10.8)
[2024-08-04 15:53] LABS: Alanine Aminotransferase 71 U/L (0-40); Albumin Level 4.3 g/dL (3.5-5.0); Anion Gap 11 (12-20); Aspartate Amino Transferase 52 U/L (5-37); Bilirubin Total 0.4 mg/dL (0.0-1.0); Blood Urea Nitrogen 11 mg/dL (9-16); Calcium 9.4 mg/dL (8.4-10.2); Carbon Dioxide 26 mmol/L (22-29); Chloride 108 mmol/L (96-108); Estimated Glomerular Filt Rate 60; Glucose Random 106 mg/dL (60-115); Potassium 4.1 mmol/L (3.3-5.1); Sodium 141 mmol/L (135-145)
[2024-08-04 16:01] LABS: Prostate Specific Antigen 0.63 ng/mL (<0.05-4.0)
[2024-08-04 16:09] LABS: Thyroid Stimulating Hormone 2.41 uIU/mL (0.32-4.0)
[2024-08-04 18:22] LABS: Alkaline Phosphatase 75 U/L (39-117)
[2024-08-08 21:09] LABS: PSA, Ultra Sensitive 0.65 ng/mL
== END 2024-08-04 13:05 | disposition home or self-care (01) ==
LOC: HO.LAB 13:04
PROVIDERS: Internal Medicine Gastroenterology; PCP Internal Medicine; Visit Provider Nurse Practitioner Family
DX: R39.11 Hesitancy of micturition (principal); Z13.29 Encounter for screening for other suspected endocrine disorder; K75.81 Nonalcoholic steatohepatitis (NASH); R82.90 Unspecified abnormal findings in urine
CPT/HCPCS: 36415; 51798; 80053; 84153; 84443; 85025; 99202

== ENCOUNTER 2024-08-04 13:04 | Outpatient (AMB) | payer OTHER, SELFPAY ==
--- NOTE | 2024-08-04 13:19 | MHC.OFFVIS ---
Intake Visit Reasons: difficulty with starting urine stream Intake Note: New patient presents today for initial visit for difficulty with starting urine stream Urology Medication:none Blood Thinner:none Antibiotic Allergies:none PVR:29ml Allergies No Known Allergies [No Known Allergies*] Allergy (Verified 08/04/24 13:55) Medication List - Last Reconciled 08/04/24 by TWILA QuachP- bupropion HCl XL 300 mg PO DAILY hydroxyzine pamoate 25 mg PO BID ibuprofen 400 mg PO TID PRN oxycodone 5 mg PO Q6H PRN pantoprazole 40 mg PO DAILY plecanatide (Trulance) 3 mg PO DAILY polyethylene glycol 3350 (Miralax) 17 grams PO DAILY prazosin 5 mg PO .qd psyllium husk (Metamucil) 0.8 grams (2 x 0.4 gram) PO DAILY tamsulosin 0.4 mg PO BEDTIME 30 days trazodone 100 mg PO BEDTIME PRN trazodone 200 mg PO BEDTIME PRN HPI Comments Details: Samuel is a very pleasant 44-year-old male patient of Dr. Thomas was accompanied by his significant other at today's office visit. He has a past medical history of anxiety, sleep apnea, diverticulitis, GERD, alcohol abuse, and depression. He presents to the office today as a new patient for ongoing lower urinary tract symptoms. In discussion with the patient today he reports noting over the last several months to be having ongoing issues with urinary hesitancy and feelings of incomplete bladder emptying. He reports feeling issues started shortly after his issues with constipation. Unable to obtain urine for urinalysis today however PVR 29 mL. We discussed at length potential causes of these urinary issues. We also discussed correlation of bowel issues and lower urinary tract symptoms. He denies any known family history of prostate cancer however does report father had issues with his prostate. He also reports episodes of nocturia up to 3 times per night. He otherwise denies urinary urgency, urinary frequency, incontinence, hematuria, dysuria, foul smelling urine, flank pain, fever, and or chills. We discussed obtaining retroperitoneal ultrasound as well as PSA for further assessment evaluation. KURT offered however deferred. We discussed potential near future in office cystoscopy and or urodynamics for further assessment evaluation. All questions were answered. He otherwise offers no other issues or concerns at this time. [facility] Medical History Anxiety Sleep apnea Diverticulitis Shortness of breath GERD (gastroesophageal reflux disease) Alcohol abuse Depression Surgical History History of esophagogastroduodenoscopy (EGD) History of wisdom tooth extraction History of left knee surgery History of umbilical hernia repair Family History Mother Mental health disorder Substance use disorder Father Mental health disorder Substance use disorder Social History Housing: Apartment Are you a primary care coordination manager to a significant other at home: No Do you presently have visiting nurse or other home services: No Alcohol intake: current Alcohol intake frequency: does not drink Comment: Has bad Knee Patient Tobacco Use Status: Current everyday Tobacco user Tobacco use type: Cigarette Cigarettes Per Day: 1 e-Cigarette/Vaping Use: Never Used Second Hand Smoke Exposure: No service: No Current occupational status: unemployed Cognitive needs: No Hearing needs: No Vision needs: No Office Procedures Post Void Residual Post Residual Void Post Void Residual (PVR): 29 13327-Unia Void Residual by ultrasound Assessment & Plan Assessment & Plan (1) Urinary hesitancy: Code(s): R39.11 - Hesitancy of micturition Category: Medical Plan Unable to obtain urine for urinalysis however PVR 29 mL. We discussed at length correlation of lower urinary tract symptoms and constipation. We discussed potential causes of lower urinary tract symptoms patient was experiencing as well as further treatment options and risks and benefits of these treatment options. We discussed possible near future in office cystoscopy and or urodynamics for further assessment evaluation. KURT offered however deferred. Will obtain retroperitoneal ultrasound for further assessment evaluation. Will obtain PSA for further assessment evaluation. We discussed importance of limiting fluids 2-3 hours prior to bed to decrease episodes of nocturia. We discussed importance of compliance with CPAP for overall health and well-being as well as for improvement in nocturia. Start Flomax as discussed and prescribed. Follow-up in 1-3 months with PVR; or sooner with any issues, concerns, and or questions. Orders: Orders AMB Post Void Residual by ultrasound Today R39.11 - Hesitancy of micturition US retroperitoneal comp Today R39.11 - Hesitancy of micturition Prostate Specific Antigen Today R39.11 - Hesitancy of micturition Medications: New tamsulosin 0.4 mg PO BEDTIME 30 caps 3RF 30 days N40.1 - Benign prostatic hyperplasia with lower urinary tract symptoms, R35.1 - Nocturia Coding Level of Care Code New Pt Level 4 (12904) Diagnoses Urinary hesitancy R39.11 CPT Codes Post Residual Void - PVR CPT Code: 95324-Tvzo Void Residual by ultrasound ([id number])
== END 2024-08-04 13:50 | disposition home or self-care (01) ==
LOC: HO.HUSH 13:05
PROVIDERS: PCP Internal Medicine; Visit Provider Nurse Practitioner Family
DX: R39.11 Hesitancy of micturition (principal)
CPT/HCPCS: 99204

== ENCOUNTER 2024-09-03 11:04 | Outpatient (AMB) | payer OTHER, SELFPAY ==
--- NOTE | 2024-09-03 11:11 | A.OFFVIS_ITS ---
Vital Signs 09/03/24 11:18 Height 5 ft 9 in Weight 214 lb BMI 31.6 Intake Visit Reasons: Inj-Left knee inj-last 06/04/24 Intake Note: Samuel is a 44 year old male who presents today for a repeat Left Knee Injection. Last injection was administered on 06/04/24. Allergies No Known Allergies [No Known Allergies*] Allergy (Verified 08/04/24 13:55) HPI HPI Inj-Left knee inj-last 06/04/24: Details: Samuel is is 44-year-old with ongoing left knee pain and intermittent swelling. He had a osteochondral allograft 10 years ago which repeat arthroscopy demonstrated absorption of the allograft. He has been seeing me intermittently ever since. He was injected 3 months ago which was minimally helpful. [facility] Medical History Anxiety Sleep apnea Diverticulitis Shortness of breath GERD (gastroesophageal reflux disease) Alcohol abuse Depression Surgical History History of esophagogastroduodenoscopy (EGD) History of wisdom tooth extraction History of left knee surgery History of umbilical hernia repair Family History Mother Mental health disorder Substance use disorder Father Mental health disorder Substance use disorder Social History Housing: Apartment Are you a primary inpatient care manager rn to a significant other at home: No Do you presently have visiting nurse or other home services: No Alcohol intake: current Alcohol intake frequency: does not drink Comment: Has bad Knee Patient Tobacco Use Status: Current everyday Tobacco user Tobacco use type: Cigarette Cigarettes Per Day: 1 e-Cigarette/Vaping Use: Never Used Second Hand Smoke Exposure: No service: No Current occupational status: unemployed Cognitive needs: No Hearing needs: No Vision needs: No Physical Exam Vital Signs: BMI result Body Mass Index 31.6 Extrem Other: A mild effusion with tenderness to palpation medial compartment. No gait antalgia. Full range of motion. Well-healed anteromedial incision Assessment & Plan Assessment & Plan (1) Osteochondral defect of femoral condyle: Code(s): M95.8 - Other specified acquired deformities of musculoskeletal system Category: Medical Plan: 44-year-old with right knee effusion and known osteochondral defect. MRI to assess. Orders: Orders MR knee LT wo con Today M95.8 - Other specified acquired deformities of musculoskeletal system Coding Level of Care Code Est Pt Level 4 (01220) Diagnoses Osteochondral defect of femoral condyle M95.8
[2024-09-03 11:18] VITALS: BMI 31.6
== END 2024-09-03 13:54 | disposition home or self-care (01) ==
LOC: HO.HOS 11:05
PROVIDERS: PCP Internal Medicine; Visit Provider Orthopaedic Surgery
DX: M95.8 Other specified acquired deformities of musculoskeletal system (principal)
CPT/HCPCS: 99214

== ENCOUNTER → 2024-09-03 11:04 | Outpatient (BNVA) | payer OTHER, SELFPAY | PROVIDERS: PCP Internal Medicine; Visit Provider Orthopaedic Surgery | DX: M95.8 Other specified acquired deformities of musculoskeletal system (principal) | CPT/HCPCS: 99212 ==

== ENCOUNTER → 2024-09-10 16:26 | Outpatient (BNV) | payer OTHER, SELFPAY | PROVIDERS: PCP Internal Medicine; Visit Provider Radiology Diagnostic Radiology | DX: M17.12 Unilateral primary osteoarthritis, left knee (principal); S83.242A Other tear of medial meniscus, current injury, left knee, initial encounter | CPT/HCPCS: 73721 ==

== ENCOUNTER 2024-09-10 16:32 | Outpatient (REF) | payer OTHER, SELFPAY ==
--- NOTE | ~2024-09-10 | MR_ITS ---
EXAMINATION: MRI LEFT KNEE WITHOUT CONTRAST HISTORY: M95.8 - Other specified acquired deformities of musculoskeletal system COMPARISON: Comparison is made with the prior examination dated 12/06/2015. Correlation is also made with plain films of the left knee dated 06/12/2024. TECHNIQUE: Coronal T1 and fat-suppressed proton density, sagittal proton density and fat-suppressed proton density, and axial fat suppressed T2 weighted MR images of the left knee were obtained. FINDINGS: The examination is somewhat limited by patient motion. Bone marrow: There is a small focus of marrow edema involving the anterior aspect lateral femoral condyle which may represent a bone contusion. Joint effusion: There is no joint effusion. Sher's cyst: There is a tiny Sher's cyst. Articular cartilage: There is moderate cartilage loss and irregularity involving the medial compartment with subchondral marrow changes. There is mild thinning of the patellar cartilage. Muscles/soft tissues: Again seen are foci of magnetic susceptibility artifact in the anteromedial soft tissues, consistent with prior surgery. The visualized muscles demonstrate normal signal intensity. Anterior cruciate ligament: Intact Posterior cruciate ligament: Intact Medial collateral ligament: Intact Lateral collateral ligament: Intact Medial meniscus: There is a horizontally oriented linear focus of increased signal intensity in the posterior horn of the medial meniscus. This contacts the inferior joint surface, consistent with a tear. Lateral meniscus: Intact Flexor mechanism: The popliteus, gastrocnemius, and hamstring tendons are intact. Quadriceps tendon: Intact Patellar tendon: Intact Patellar retinacula: Intact MR/MR knee LT wo con IMPRESSION: 1. Possible small bone contusion involving the anterior aspect of the lateral femoral condyle. 2. Moderate degenerative changes of the medial compartment. Mild cartilage thinning involving the patellar cartilage. 3. Horizontal tear of the posterior horn of the medial meniscus. Electronically signed by: Eliazar Grey MD 09/11/2024 08:49 AM EDT
== END 2024-09-10 16:33 | disposition home or self-care (01) ==
LOC: HO.MRI 16:32
PROVIDERS: PCP Internal Medicine; Visit Provider Orthopaedic Surgery
DX: M95.8 Other specified acquired deformities of musculoskeletal system (principal)
CPT/HCPCS: 73721

== ENCOUNTER 2024-10-21 10:14 | Outpatient (REF) | payer OTHER, SELFPAY ==
--- NOTE | ~2024-10-21 | US_ITS ---
EXAMINATION: US RETROPERITONEUM HISTORY: R39.11 - Hesitancy of micturition TECHNIQUE: Real-time grayscale ultrasound imaging of the kidneys was performed and images were reviewed. COMPARISON: Correlation is made with an abdominal ultrasound dated 08/29/2021. FINDINGS: Right kidney: The right kidney measures 10.2 x 5.1 x 6.2 cm. Renal parenchymal echotexture and thickness are normal. There are no masses. There is no hydronephrosis or renal calculi. Left Kidney: The left kidney measures 10.8 x 5.1 x 5.3 cm. Renal parenchymal echotexture and thickness are normal. There are no masses. There is no hydronephrosis or renal calculi. The urinary bladder is unremarkable. Bilateral ureteral jets are identified. Before voiding, the urinary bladder measured 8.1 x 6.1 x 6.1 cm, for an estimated volume of 158 mL. After voiding, the urinary bladder measured 3.3 x 2.1 x 2.7 cm, for an estimated volume of 9.8 mL. The prostate measures 3.4 x 3.3 x 3.5 cm, for an estimated volume of 20.3 mL. US/US retroperitoneal comp IMPRESSION: Unremarkable retroperitoneal ultrasound. Post void bladder residual of 9.8 mL. Prostate volume of 20.3 mL. Electronically signed by: Eliazar Grey MD 10/21/2024 11:02 AM EDT
== END 2024-10-21 10:15 | disposition home or self-care (01) ==
LOC: HO.US 10:14
PROVIDERS: Visit Provider Nurse Practitioner Family
DX: R39.11 Hesitancy of micturition (principal)
CPT/HCPCS: 76770

== ENCOUNTER → 2024-10-21 10:21 | Outpatient (BNV) | payer OTHER, SELFPAY | PROVIDERS: Visit Provider Radiology Diagnostic Radiology | DX: R39.14 Feeling of incomplete bladder emptying (principal) | CPT/HCPCS: 76770 ==

== ENCOUNTER 2024-11-02 09:50 | Outpatient (AMB) | payer OTHER, SELFPAY ==
[2024-11-02 10:00] VITALS: BMI 31.6
--- NOTE | 2024-11-02 10:00 | A.OFFVIS_ITS ---
Vital Signs 11/02/24 10:00 Height 5 ft 9 in Weight 214 lb BMI 31.6 Intake Visit Reasons: OV-Left knee MRI review Intake Note: Samuel is a 44 year old male who presents today for a Left Knee MRI Review. Hx of Left Knee osteochondral allograft about 10 years ago & a secondary arthroscopy which showed absorption of the allograft. Patient reports that the left knee is feeling fine and that he only has slight pain when over walking. MRI of the Left Knee @ [facility] [place] 09/10/24 1. Possible small bone contusion involving the anterior aspect of the lateral femoral condyle. 2. Moderate degenerative changes of the medial compartment. Mild cartilage thinning involving the patellar cartilage. 3. Horizontal tear of the posterior horn of the medial meniscus. Allergies No Known Allergies [No Known Allergies*] Allergy (Verified 11/02/24 10:04) HPI HPI OV-Left knee MRI review: Details: Samuel is a 44 year old male who presents today for a Left Knee MRI Review. Hx of Left Knee osteochondral allograft about 10 years ago & a secondary arthroscopy which showed absorption of the allograft. Patient reports that the left knee is feeling okay and he has pain with ambulation not as much rest as he has in the past. When he walks after her period of time he will feel catching and grinding and if this persists he will swell up. He has been going on for years since his surgery 10 years ago. [facility] Medical History Anxiety Sleep apnea Diverticulitis Shortness of breath GERD (gastroesophageal reflux disease) Alcohol abuse Depression Surgical History History of esophagogastroduodenoscopy (EGD) History of wisdom tooth extraction History of left knee surgery History of umbilical hernia repair Family History Mother Mental health disorder Substance use disorder Father Mental health disorder Substance use disorder Social History Housing: Apartment Are you a primary career advisor to a significant other at home: No Do you presently have visiting nurse or other home services: No Alcohol intake: current Alcohol intake frequency: does not drink Comment: Has bad Knee Patient Tobacco Use Status: Current everyday Tobacco user Tobacco use type: Cigarette Cigarettes Per Day: 1 e-Cigarette/Vaping Use: Never Used Second Hand Smoke Exposure: No service: No Current occupational status: unemployed Cognitive needs: No Hearing needs: No Vision needs: No Physical Exam Vital Signs: BMI result Body Mass Index 31.6 Extrem Other: On exam he has got a mild left knee effusion and tenderness to palpation globally about the medial femoral condyle. He has 0-125 degrees of motion and negative Kasie's test. His dorsalis pedis pulses 2+. He walks with mild antalgia. Results Reviewed Results Reviewed: I personally reviewed the MR images. MRI of the Left Knee @ [facility] [place] 09/10/24 1. Possible small bone contusion involving the anterior aspect of the lateral femoral condyle. 2. Moderate degenerative changes of the medial compartment. Mild cartilage thinning involving the patellar cartilage. 3. Horizontal tear of the posterior horn of the medial meniscus. Assessment & Plan Assessment & Plan (1) Osteochondral defect of femoral condyle: Code(s): M95.8 - Other specified acquired deformities of musculoskeletal system Category: Medical Plan: This is a 44-year-old gentleman with a osteochondral defect of the left femoral condyle. This was treated 10 years ago unsuccessfully and he has had pain off and on ever since with worsening mechanical symptoms recently. I had a long discussion with him regarding treatment options. I recommend a chondral allograft versus arthroscopy. We had a long discussion and the benefits and risks of each were discussed. I think at this time it is most prudent to proceed forward with a knee arthroscopy for with chondroplasty for the ongoing mechanical symptoms. This will give us an opportunity to visualize the extent of the lesion as it is visualized poorly on MRI. I think this may also alleviate these mechanical symptoms he continues to have. I discussed risks of incomplete symptom resolution, stiffness, need for further surgery, pain as well as options that do not include surgery. He expressed understanding and we will proceed forward accordingly. Coding Level of Care Code Est Pt Level 4 (51653) Diagnoses Osteochondral defect of femoral condyle M95.8
== END 2024-11-02 10:17 | disposition home or self-care (01) ==
LOC: HO.HOS 09:50
PROVIDERS: PCP Internal Medicine; Visit Provider Orthopaedic Surgery
DX: M95.8 Other specified acquired deformities of musculoskeletal system (principal)
CPT/HCPCS: 99214

== ENCOUNTER → 2024-11-02 09:50 | Outpatient (BNVA) | payer OTHER, SELFPAY | PROVIDERS: PCP Internal Medicine; Visit Provider Orthopaedic Surgery | DX: M93.262 Osteochondritis dissecans, left knee (principal); M25.562 Pain in left knee; M95.8 Other specified acquired deformities of musculoskeletal system | CPT/HCPCS: 99212 ==

== ENCOUNTER 2024-11-18 06:54 | Day surgery (SDC) | payer OTHER, SELFPAY ==
[2024-11-16 09:55] VITALS: BMI 31.6
--- NOTE | 2024-11-17 08:17 | HO.ANESPROP2 ---
Documented by User: Malena Arvizu NP 11/17/24 08:20 HPI - Anesthesia Eval Consult details Narrative: 44yo M for Left Knee Arthroscopy PMFSH Active Problems Active Problems: All Active Problems Abnormal finding in urine (Acute) Depression (Acute) Constipation by delayed colonic transit (Acute) Bilateral otitis media (Acute) Back pain (Acute) Urinary hesitancy (Acute) GERD (gastroesophageal reflux disease) (Acute) Osteochondral defect of femoral condyle (Acute) Knee pain (Acute) Diverticulitis (Acute) Physical exam (Acute) Alcohol abuse (Acute) Depression (Acute) Past Medical History Medical History Anxiety Sleep apnea Diverticulitis Shortness of breath GERD (gastroesophageal reflux disease) Alcohol abuse Depression Family History Family History Mother Mental health disorder Substance use disorder Father Mental health disorder Substance use disorder Family history of problems with anesthesia: No Surgical History Surgical History (Updated 11/16/24 @ 09:53 by Selin Chi RN) H/O colonoscopy History of esophagogastroduodenoscopy (EGD) History of wisdom tooth extraction History of left knee surgery History of umbilical hernia repair History of Problems with Anesthesia: No Social History Social History Housing: Apartment Are you a primary director medicare sales to a significant other at home: No Do you presently have visiting nurse or other home services: No Alcohol intake: current Alcohol intake frequency: holidays/special occasions only Comment: Has bad Knee Patient Tobacco Use Status: Current someday Tobacco user Tobacco use type: Cigarette Cigarettes Per Day: 1 e-Cigarette/Vaping Use: Never Used Second Hand Smoke Exposure: No Have you been hit, kicked, punched, or otherwise hurt by someone within the past year? If so, by whom?: No Are you DNR?: No Advance Directives: No Advance Directives Information Provided: Yes service: No Current occupational status: unemployed Cognitive needs: No Hearing needs: No Vision needs: No Meds Allergies Allergy/AdvReac Type Severity Reaction Status Date / Time No Known Allergies (No Known Allergy Verified 11/02/24 10:04 Allergies*) Home Medications ?Medication ?Instructions ?Recorded ?Confirmed ?Last Taken ?Type bupropion HCl 300 mg 24 hr tablet, 300 mg PO DAILY 06/06/23 11/16/24 Unknown History extended release hydroxyzine pamoate 25 mg capsule 25 mg PO BID 12/13/23 11/16/24 Unknown History prazosin 5 mg capsule 5 mg PO .qd 06/08/24 11/16/24 Unknown History trazodone 100 mg tablet 200 mg PO BEDTIME PRN Insomnia 06/08/24 11/16/24 Unknown History Exam Height,Weight and Vital Signs: Height 5 ft 9 in Weight 97.069 kg Assessment and Plan Assessment Anesthesia Assessment: Chart Reviewed Final Anesthetic Review Family History of Problems with Anesthesia: No History of Problems with Anesthesia: No Documented by User: Beba Johnson MD 11/18/24 08:31 [facility] Past Medical History Medical History Anxiety Sleep apnea Diverticulitis Shortness of breath GERD (gastroesophageal reflux disease) Alcohol abuse Depression Family History Family History Mother Mental health disorder Substance use disorder Father Mental health disorder Substance use disorder Surgical History Surgical History (Updated 11/16/24 @ 09:53 by Selin Chi RN) H/O colonoscopy History of esophagogastroduodenoscopy (EGD) History of wisdom tooth extraction History of left knee surgery History of umbilical hernia repair Social History Social History Housing: Apartment Are you a primary director medicare sales to a significant other at home: No Do you presently have visiting nurse or other home services: No Alcohol intake: current Alcohol intake frequency: holidays/special occasions only Comment: Has bad Knee Patient Tobacco Use Status: Current someday Tobacco user Tobacco use type: Cigarette Cigarettes Per Day: 1 e-Cigarette/Vaping Use: Never Used Second Hand Smoke Exposure: No Have you been hit, kicked, punched, or otherwise hurt by someone within the past year? If so, by whom?: No Are you DNR?: No Advance Directives: No Advance Directives Information Provided: Yes service: No Current occupational status: unemployed Cognitive needs: No Hearing needs: No Vision needs: No Meds Allergies Allergy/AdvReac Type Severity Reaction Status Date / Time No Known Allergies (No Known Allergy Verified 11/02/24 10:04 Allergies*) Home Medications ?Medication ?Instructions ?Recorded ?Confirmed ?Last Taken ?Type bupropion HCl 300 mg 24 hr tablet, 300 mg PO DAILY 06/06/23 11/16/24 Unknown History extended release hydroxyzine pamoate 25 mg capsule 25 mg PO BID 12/13/23 11/16/24 Unknown History prazosin 5 mg capsule 5 mg PO .qd 06/08/24 11/16/24 Unknown History trazodone 100 mg tablet 200 mg PO BEDTIME PRN Insomnia 06/08/24 11/16/24 Unknown History Exam Airway Mallampati Class: II (cap top left lateral) TM Dist: >3cm Neck ROM: Full Heart: rrr Lungs: cta Assessment and Plan Assessment Anesthesia Assessment: Anesthesia Plan Discussed Final Anesthetic Review NPO: Yes ASA Class: III Final Preanesthetic Review: No Changes in Pt Med Stat, Meds/Allgs Chart Reviewed and Consent Obtained/Reviewed Patient Risk: Low Procedure Risk: Low Anesthetic Plan Anesthetic Plan: GA Disposition: Standard PACU
[2024-11-18] VITALS (7 sets, daily range): BP systolic 112–145; BP diastolic 67–88; PULSE 53–72; RESP 16–20; TEMP 36.1–36.9; O2SAT 94–97
[2024-11-18] MEDS: Lactated Ringers 1,000 ML 100 ML IVCONT (07:40)
--- NOTE | 2024-11-18 08:20 | MHC.SHP ---
Pre-Procedural Eval Section A - 24 Hr Update-Section A only Date of Service: 11/18/24 The patient is an INPATIENT: No Changes since office visit: No Cold of Flu in the past 2 weeks, No New Medical Problems, No Changes in Medication and No Patient answered all questions The patient has been examined within 24 hours of the surgical procedure. The History & Physical has been completed within 30 days and I have reviewed it.: Yes Section B - Complete if H&P > 30 days Chief Complaint: Osteochondritis dissecans, left knee Allergies: Allergies Allergy/AdvReac Type Severity Reaction Status Date / Time No Known Allergies (No Known Allergy Verified 11/02/24 10:04 Allergies*) Plan I have reviewed the history and physical and performed a pertinent physical examination on my patient. No changes have occurred unless specified. Time Spent With Patient Time: Total time managing care of this patient today ____ minutes.
[2024-11-18] MEDS: fentaNYL citrate/PF 100 MCG/2 ML VIAL 50 MCG IVPUSH ×2 (11:20→11:25)
--- NOTE | 2024-11-18 11:29 | PM.OP ---
Brief Operative Note Date of Service: 11/18/24 Pre-op diagnosis: Left knee MFC cartilage defect Post-op diagnosis: other (Arthritis right MFC) Procedure: Left knee with chondroplasty Implants: none Surgeon: Thomas Anderson MD Anesthesia: GETA and local Was an Technical Support Technician used for this Procedure?: No Estimated blood loss (mL): 2 Tourniquet time (min): 15 IV fluids (mL): 500 Pathology: none sent Condition: stable Disposition: PACU
[2024-11-18] MEDS: oxyCODONE HCl Immed Release 5 MG TABLET PO (11:32)
--- NOTE | 2024-12-18 11:46 | P.OP_ITS ---
Operative Note Operative Note Date of Service: 11/18/24 Narrative: Date of Service: 11/18/24 Pre-op diagnosis: Left knee MFC cartilage defect Post-op diagnosis: other (Arthritis right MFC) Procedure: Left knee with chondroplasty Implants: none Surgeon: Thomas Anderson MD Anesthesia: GETA and local Was an Engineering Project Manager used for this Procedure?: No Estimated blood loss (mL): 2 Tourniquet time (min): 15 IV fluids (mL): 500 Pathology: none sent Condition: stable Disposition: PACU Procedure in detail: Patient was brought to the operating room placed supine on the arthroscopic table and prepped and draped in standard sterile fashion. A time-out was called to identify proper site proper procedure proper surgeon and IV antibiotics per weight were administered. I began by exsanguinating the limb and insufflating tourniquet to 300 mm Hg. Then made a standard anterolateral stab incision. The knee was insufflated with water and 30 degree arthroscope was placed. There was grade 1 fibrillations of the patella but overall suprapatellar pouch and the gutters were clean. I descended into the medial compartment where I made my medial portal under direct visualization. The only abnormal finding was the eburnation of the weight-bearing portion of the medial femoral condyle. This was examined and measured. The loose cartilage was debrided with a shaver and the lesion anteriorly measured 1.5 cm in diameter but extended in a pyramidal shaped posteriorly to involve over 80% of the weight-bearing portion of the medial femoral condyle posteriorly and anteriorly proximally 50%. This is not a lesion that is amenable to osteochondral grafting and would require unicompartmental arthroplasty has a next step if that were elected. The medial lateral meniscus were intact. The lateral compartment was with normal cartilage surfaces. Patellofemoral joint was overall intact in without cartilage changes. All instrumentation was then removed after my final photographs were taken. The portals closed with nylon. 25 mL of 2% Marcaine with epinephrine was injected into the joint and the surrounding soft tissues. Patient was then placed in sterile dressing extubated brought recovery room stable condition. There were no known complications.
== END 2024-11-18 11:55 | disposition home or self-care (01) ==
LOC: HO.SSS 06:54
PROVIDERS: Visit Provider Orthopaedic Surgery
PROC: (CPT 29870; principal; 2024-11-18 10:30)
DX: M93.262 Osteochondritis dissecans, left knee (principal); M95.8 Other specified acquired deformities of musculoskeletal system; M17.12 Unilateral primary osteoarthritis, left knee; F32.A Depression, unspecified; F41.9 Anxiety disorder, unspecified; G47.30 Sleep apnea, unspecified; K21.9 Gastro-esophageal reflux disease without esophagitis; F10.10 Alcohol abuse, uncomplicated; Z23 Encounter for immunization; Z79.899 Other long term (current) drug therapy; Z98.890 Other specified postprocedural states; F17.210 Nicotine dependence, cigarettes, uncomplicated; Z56.0 Unemployment, unspecified
CPT/HCPCS: 29877; 90675; J0131; J0171; J0690; J1100; J1885; J2003; J2250; J2405; J2704; J2795; J3010

== ENCOUNTER → 2024-11-18 06:54 | Outpatient (BNV) | payer OTHER, SELFPAY | PROVIDERS: Visit Provider Orthopaedic Surgery | DX: M24.19 Other articular cartilage disorders, other specified site (principal); M17.12 Unilateral primary osteoarthritis, left knee | CPT/HCPCS: 29877 ==

== ENCOUNTER 2024-11-25 14:53 | Outpatient (AMB) | payer OTHER, SELFPAY ==
--- NOTE | 2024-11-25 14:59 | MHC.OFFVIS ---
Intake Visit Reasons: PO LT knee 11/18/24 NE Intake Note: Samuel is a 44 year old male who presents today for a post operative visit after undergoing a left knee on 11/18/[address] Anderson. Patient reports he is doing well, states mild pain. He states upon removing his bandages he broke out in hives on his left leg. Allergies No Known Allergies (No Known Allergies*) Allergy (Verified 11/25/24 15:01) HPI HPI PO LT knee 11/18/24 NE: Details: 44-year-old gentleman presents to the office today status post left knee arthroscopy on 11/18/[address] Anderson. He has been weight-bearing as tolerated and has minimal discomfort no concerns today. [facility] Medical History (Updated 11/25/24 @ 07:46 by PARRISH Yates) Anxiety Sleep apnea Diverticulitis Shortness of breath GERD (gastroesophageal reflux disease) Alcohol abuse Depression Surgical History H/O colonoscopy History of esophagogastroduodenoscopy (EGD) History of wisdom tooth extraction History of left knee surgery History of umbilical hernia repair Family History Mother Mental health disorder Substance use disorder Father Mental health disorder Substance use disorder Social History Housing: Apartment Are you a primary home child care provider to a significant other at home: No Do you presently have visiting nurse or other home services: No Alcohol intake: current Alcohol intake frequency: holidays/special occasions only Comment: Has bad Knee Patient Tobacco Use Status: Current someday Tobacco user Tobacco use type: Cigarette Cigarettes Per Day: 1 e-Cigarette/Vaping Use: Never Used Second Hand Smoke Exposure: No service: No Current occupational status: unemployed Cognitive needs: No Hearing needs: No Vision needs: No Review of Systems Const All systems reviewed & are unremarkable except as noted in HPI and below Physical Exam Extrem Other: Left knee incision is clean and intact erythema or joint effusion. Range of motion 0-95 degrees calf supple nontender. nvi Results Reviewed Results Reviewed: Brief Operative Note Date of Service: 11/18/24 Pre-op diagnosis: Left knee MFC cartilage defect Post-op diagnosis: other (Arthritis right MFC) Procedure: Left knee with chondroplasty Implants: none Surgeon: Thomas Anderson MD Assessment & Plan Assessment & Plan (1) Osteochondral defect of femoral condyle: Code(s): M95.8 - Other specified acquired deformities of musculoskeletal system Category: Medical Plan: Sutures removed today Steri-Strips applied. I encouraged the patient to work with physical therapy to regain his motion and strength/conditioning. I emphasized the importance of conditioning to help offset the effects of the arthritis and potentially delay the need for further surgery. He can increase activities as tolerated and he will see us back as needed. Orders: Orders PT Evaluation and Treatment Today M95.8 - Other specified acquired deformities of musculoskeletal system Coding Level of Care Code Global (10729) Diagnoses Osteochondral defect of femoral condyle M95.8
== END 2024-11-25 15:21 | disposition home or self-care (01) ==
LOC: HO.HOS 14:53
PROVIDERS: Visit Provider Physician Assistant
DX: M95.8 Other specified acquired deformities of musculoskeletal system (principal)
CPT/HCPCS: 99024

== ENCOUNTER → 2024-11-25 14:53 | Outpatient (BNVA) | payer OTHER, SELFPAY | PROVIDERS: Visit Provider Physician Assistant | DX: M25.562 Pain in left knee (principal); Z98.890 Other specified postprocedural states; M95.8 Other specified acquired deformities of musculoskeletal system | CPT/HCPCS: 99212 ==

== ENCOUNTER 2024-12-07 10:21 | Outpatient (REF) | payer OTHER, SELFPAY ==
[2024-12-10 06:53] LABS: TS Negative Control Passed; TS Panel A 0; TS Panel B 0; TS Positive Control Passed; TSpotTB Negative (Negative)
== END 2024-12-07 10:22 | disposition home or self-care (01) ==
LOC: HO.LAB 10:21
DX: K21.9 Gastro-esophageal reflux disease without esophagitis (principal); K59.00 Constipation, unspecified; K57.90 Diverticulosis of intestine, part unspecified, without perforation or abscess without bleeding; K74.60 Unspecified cirrhosis of liver; K75.81 Nonalcoholic steatohepatitis (NASH); K52.839 Microscopic colitis, unspecified; R79.82 Elevated C-reactive protein (CRP); R79.89 Other specified abnormal findings of blood chemistry; E46 Unspecified protein-calorie malnutrition; F10.10 Alcohol abuse, uncomplicated; Z68.31 Body mass index [BMI] 31.0-31.9, adult; Z11.1 Encounter for screening for respiratory tuberculosis; Z79.899 Other long term (current) drug therapy
CPT/HCPCS: 36415; 86481; 99212

== ENCOUNTER 2024-12-07 11:05 | Outpatient (AMB) | payer OTHER, SELFPAY ==
--- NOTE | 2024-12-07 11:18 | A.OFFVIS_ITS ---
Vital Signs 12/07/24 11:21 Height 5 ft 9 in Weight 210 lb BMI 31.0 BP 116/63 Blood Pressure Location Lt brachial Position Sitting Pulse 52 Pulse Oximetry (%) 97 Oxygen Delivery Method Room Air Intake Visit Reasons: 6 month f/u Intake Note: Patient 6 month follow up for GERD/Constipation Patient cc: abdominal pain, acid reflux on and off, medication is helping with constipation, and denies any other GI issues. Gallery Or Museum Attendant Required: No Accompanied by: Family/Other Allergies No Known Allergies (No Known Allergies*) Allergy (Verified 12/07/24 11:17) HPI HPI 6 month f/u: Details: 44 yr old m here for f/u for RECAP: HE had EGD and Colonoscopy 06/19 Endoscopy Findings: schatzki ring hiatal hernia erosive esophagitis gastritis erosive duodenitis Colonoscopy Findings: internal hemorrhoids diverticular disease repeat EGD 09/17 possible barretts schatzki ring hiatal hernia lax LES path:mild inflammation GEJ, no barretts INTERIM: He is happy with trulance, he has no reflux with PPI needs refills on both he binge drinks on weekends, admits it is too much, diet is variable EXAM: GENERAL: The patient is well developed and nontoxic. VITAL SIGNS:see workflow HEENT: Nonicteric sclerae, PERRLA, EOMI. Oropharynx clear. Moist mucous membranes. Conjunctivae appear well perfused. No thyroid mass. CHEST: Chest wall is nontender. HEART: Regular rate and rhythm without murmurs. LUNGS: Clear to auscultation bilaterally. ABDOMEN: Soft, positive bowel sounds, nontender, no organomegaly.no flank tenderness SKIN: No rash, no excessive bruising, petechiae, or purpura. NEUROLOGIC: Cranial nerves II-XII intact without motor/sensory deficit. Psych: normal affect injured knee, using stick A/P: 1/ Constipation and diverticulosis 2/ GERD- better with medication 3/ abn LFT< prob from alcohol use, may have KELLY PLAN: 1/ cont with trulance 2/ cont with pantoprazole 3/ US liver 4/ rechekc labs and serologies but advised do in 3-4 weeks after stopping alcohol, can drink coffee or green tea PFSH Medical History (Updated 12/07/24 @ 11:41 by Mane Terrell MD) Anxiety Sleep apnea Diverticulitis Shortness of breath GERD (gastroesophageal reflux disease) Alcohol abuse Depression Surgical History H/O colonoscopy History of esophagogastroduodenoscopy (EGD) History of wisdom tooth extraction History of left knee surgery History of umbilical hernia repair Family History Mother Mental health disorder Substance use disorder Father Mental health disorder Substance use disorder Social History Housing: Apartment Are you a primary transition of care specialist to a significant other at home: No Do you presently have visiting nurse or other home services: No Alcohol intake: current Alcohol intake frequency: holidays/special occasions only Comment: Has bad Knee Patient Tobacco Use Status: Current someday Tobacco user Tobacco use type: Cigarette Cigarettes Per Day: 1 e-Cigarette/Vaping Use: Never Used Second Hand Smoke Exposure: No service: No Current occupational status: unemployed Cognitive needs: No Hearing needs: No Vision needs: No Physical Exam Vital Signs: Last Vital Signs Pulse 52 12/07/24 11:21 BP 116/63 12/07/24 11:21 Pulse Ox 97 12/07/24 11:21 Oxygen Delivery Method Room Air 12/07/24 11:21 BMI result Body Mass Index 31.0 Assessment & Plan Assessment & Plan (1) Abnormal LFTs: Code(s): R79.89 - Other specified abnormal findings of blood chemistry Category: Medical Plan: see above (2) Alcohol abuse: Code(s): F10.10 - Alcohol abuse, uncomplicated Category: Social Hx Plan: see above Orders: Orders Complete Blood Count Auto Diff Today F10.10 - Alcohol abuse, uncomplicated, R7.89 - Other specified abnormal findings of blood chemistry Smooth Muscle Antibody Today F10.10 - Alcohol abuse, uncomplicated, R79.89 - Other specified abnormal findings of blood chemistry Liver Kidney Microsomal Ab Today F10.10 - Alcohol abuse, uncomplicated, R7.89 - Other specified abnormal findings of blood chemistry Vitamin D 25-OH Total Today F10.10 - Alcohol abuse, uncomplicated, R7.89 - Other specified abnormal findings of blood chemistry US abdomen boyce w elastography Today K74.60 - Unspecified cirrhosis of liver, K75.81 - Nonalcoholic steatohepatitis (GAXIOLA) Comprehensive Met. Panel Today F10.10 - Alcohol abuse, uncomplicated, K75.81 - Nonalcoholic steatohepatitis (GAXIOLA), R7.89 - Other specified abnormal findings of blood chemistry Phosphatidylethanol, Blood Today F10.10 - Alcohol abuse, uncomplicated, R7.89 - Other specified abnormal findings of blood chemistry OLVIN Reflex Titer and Pattern Today F10.10 - Alcohol abuse, uncomplicated, R79.82 - Elevated C-reactive protein (CRP), R7. - Other specified abnormal findings of blood chemistry Alpha 1 Anti-trypsin Today F10.10 - Alcohol abuse, uncomplicated, R7.89 - Other specified abnormal findings of blood chemistry Immunoglobulin G Today F10.10 - Alcohol abuse, uncomplicated, K52.839 - Microscopic colitis, unspecified, R7. - Other specified abnormal findings of blood chemistry Hepatitis A,B,C Profile Today F10.10 - Alcohol abuse, uncomplicated, R7. - Other specified abnormal findings of blood chemistry Liver Fibrosis Pnl Today F10.10 - Alcohol abuse, uncomplicated, R7. - Other specified abnormal findings of blood chemistry Mitochondrial Antibody Today F10.10 - Alcohol abuse, uncomplicated, R7. - Ot her specified abnormal findings of blood chemistry Vitamin A Today F10.10 - Alcohol abuse, uncomplicated, R7. - Other specified abnormal findings of blood chemistry Vitamin K1 Today E46 - Unspecified protein-calorie malnutrition, F10.10 - Alcohol abuse, uncomplicated, R7. - Other specified abnormal findings of blood chemistry Vitamin E Today F10.10 - Alcohol abuse, uncomplicated, R7. - Other specified abnormal findings of blood chemistry Medications: Refilled pantoprazole 40 mg PO DAILY 90 tabs 2RF plecanatide (Trulance) 3 mg PO DAILY 30 tabs 3RF Coding Level of Care Code Est Pt Level 3 (36039) Diagnoses Abnormal LFTs Alcohol abuse F10.10
[2024-12-07 11:21] VITALS: BP 116/63; PULSE 52; O2SAT 97; BMI 31.0
== END 2024-12-07 11:45 | disposition home or self-care (01) ==
LOC: HO.HGI 11:06
PROVIDERS: PCP Internal Medicine; Visit Provider Internal Medicine Gastroenterology
DX: R79.89 Other specified abnormal findings of blood chemistry (principal); F10.10 Alcohol abuse, uncomplicated
CPT/HCPCS: 99213

== ENCOUNTER 2025-04-09 09:03 | Outpatient (REF) | payer OTHER, SELFPAY ==
[2025-04-09 11:23] LABS: INTERNATIONAL NORM RATIO 0.8 (0.9-1.1); Prothrombin Time 9.9 SEC (11.2-13.5)
[2025-04-09 12:12] LABS: Partial Thromboplastin Time 29.7 SEC (26.7-34.1)
== END 2025-04-09 09:04 | disposition home or self-care (01) ==
LOC: HO.LAB 09:03
PROVIDERS: Absent Provider Internal Medicine Gastroenterology; Visit Provider Internal Medicine
DX: Z00.00 Encounter for general adult medical examination without abnormal findings (principal); T14.8XXA Other injury of unspecified body region, initial encounter; F17.210 Nicotine dependence, cigarettes, uncomplicated; F32.1 Major depressive disorder, single episode, moderate; R39.11 Hesitancy of micturition; K59.00 Constipation, unspecified; M93.90 Osteochondropathy, unspecified of unspecified site; H53.8 Other visual disturbances; R79.89 Other specified abnormal findings of blood chemistry; Z79.891 Long term (current) use of opiate analgesic; Z79.899 Other long term (current) drug therapy
CPT/HCPCS: 36415; 85610; 85611; 85730; 85732

== ENCOUNTER 2025-04-09 09:03 | Outpatient (AMB) | payer OTHER, SELFPAY ==
--- NOTE | 2025-04-09 09:16 | A.OFFPC_ITS ---
Vital Signs 04/09/25 09:18 Height 5 ft 9 in Weight 215 lb BMI 31.7 BP 130/90 H Blood Pressure Location Lt brachial Position Sitting Pulse 59 Pulse Source Pulse Oximeter Temp 97.3 F Temp Source Temporal Artery Scan Pulse Oximetry (%) 96 Oxygen Delivery Method Room Air Intake Visit Reasons: annual exam Intake Note: Patient is here today for a physical. 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: Present Accompanied by: Significant Other Allergies No Known Allergies (No Known Allergies*) Allergy (Verified 04/09/25 09:18) Medication List - Last Reconciled 04/09/25 by Bayron Pittman MD bupropion HCl XL 300 mg PO DAILY hydrocodone-acetaminophen 5-325 mg 1 tab PO Q8H PRN 7 days hydroxyzine pamoate 25 mg PO BID ibuprofen 400 mg PO TID PRN pantoprazole 40 mg PO DAILY plecanatide (Trulance) 3 mg PO DAILY polyethylene glycol 3350 (Miralax) 17 grams PO DAILY prazosin 5 mg PO .qd tamsulosin 0.4 mg PO BEDTIME 30 days trazodone 200 mg PO BEDTIME PRN Tobacco use date assessed: 04/09/25 Dental Screening Dental Screen Date: 04/09/25 Did you have a dental visit in the last 12 months?: Yes Did you have a dental problem in the last 6 months where you did not have access to dental care?: No Was dental information given to patient?: Patient has dentist HPI HPI Comments History of Present Illness Details The patient is a 44-year-old male with PMH of MDD, Ostheochoritis, elevated liver enzymes, GERD, IBS, BPH, Insomnia, presenting for an annual examination. He reports new onset of intermittent blurry vision, which can occur suddenly at any time, including upon waking. He also reports a new issue of waking up with painful bruises on his legs and knees without any known trauma, which last for a couple of days. For chronic problems: Blood work from August 04, 2024, revealed elevated liver enzymes, with an AST of 52 and ALT of 72. He is under the care of a religious educator, who ordered Liver disease labs in November 2024 that have not yet been completed. The patient has a history of osteochondritis of the knee, for which he is fo llowed by an health care law specialist. For mental health, he reports dealing with stress and finds that Wellbutrin is helpful. He also takes hydroxyzine for anxiety and has recently started seeing a therapist. His current medications include bupropion (Wellbutrin), hydrocodone- acetaminophen as needed, hydroxyzine, ibuprofen as needed, pantoprazole, Trulance, MiraLax, tamsulosin, and trazodone. The patient reports a history of chronic constipation, previously attributed to IBS, which is managed with Trulance and MiraLax. He had a colonoscopy years ago for hemorrhoids. [facility] Medical History (Updated 04/09/25 @ 12:53 by Bayron Pittman MD) Anxiety Sleep apnea Diverticulitis Shortness of breath GERD (gastroesophageal reflux disease) Alcohol abuse Depression Surgical History H/O colonoscopy History of esophagogastroduodenoscopy (EGD) History of wisdom tooth extraction History of left knee surgery History of umbilical hernia repair Family History Mother Mental health disorder Substance use disorder Father Mental health disorder Substance use disorder Social History (Updated 04/09/25 @ 09:24 by EZIO Ambrocio) Housing: Apartment Are you a primary memory care program resident to a significant other at home: No Do you presently have visiting nurse or other home services: No Alcohol intake: current Alcohol intake frequency: a few times a week Comment: Has bad Knee Patient Tobacco Use Status: Current someday Tobacco user Tobacco use type: Cigarette Cigarettes Per Day: 5 e-Cigarette/Vaping Use: Never Used Second Hand Smoke Exposure: Yes service: No Current occupational status: unemployed Cognitive needs: No Hearing needs: No Vision needs: No Questionnaire PHQ-9 Over the last 2 weeks, how often have you been bothered by any of the following problems? 1. Little interest or pleasure in doing things: not at all 2. Feeling down, depressed, or hopeless: several days 3. Trouble falling or staying asleep, or sleeping too much: more than half the days 4. Feeling tired or having little energy: nearly every day 5. Poor appetite or overeating: several days 6. Feeling bad about yourself - or that you are a failure or have let yourself or your family down: several days 7. Trouble concentrating on things, such as reading the newspaper or watching television: several days 8. Moving or speaking so slowly that other people could have noticed. Or the opposite - being so fidgety or restless that you have been moving around a lot more than usual: several days 9. Thoughts that you would be better off or of hurting yourself in some way: not at all Total score: 10 Depression Screening Interpretation: Positive (Takes Wellbutrin, follows with therapy. ) Depression Screening Follow-up: Existing condition and In treatment Depression Screening Done: Yes Source: Developed by Drs. Eliazar Ross, Taina Fish, Stephen Abarca and colleagues, with an educational susie from [employer]. Thrive Questionnaire Date Thrive assessed: 04/09/25 I am a: Patient What is your living situation today?: I have a steady place to live Within the past 12 months, did the food you bought not last and you didn't have the money to get more?: Never true Within the past 12 months, did you worry whether your food would run out before you got money to buy more?: Never true Do you have trouble paying for medicines?: No Do you have trouble getting transportation to medical appointments?: No Do you have trouble paying your heating and electricity bill?: No Do you have trouble taking care of your child, family member or friend?: No Do you have trouble with day-to-day activities such as bathing, preparing meals, shopping, managing finances, etc.?: No Are you currently unemployed and looking for a job?: No Are you interested in more education?: No Please select the resources that you would like help with: None Currently or been in a relationship where the following occur: No concerns reported THRIVE Score: 0 AUDIT C Alcohol Use Questionnaire (AUDIT-C) 1. How often do you have a drink containing alcohol?: Never Total Score: 0 CLEM-7 AMB Questionnaire CLEM-7 Date CLEM - 7 assessed: 04/09/25 Feeling nervous, anxious, or on edge: 1 = Several days Not being able to stop or control worryin = Not at all Worrying too much about different things: 0 = Not at all Trouble relaxin = Nearly every day Being so restless that it is hard to sit still: 3 = Nearly every day Becoming easily annoyed or irritable: 2 = More than half the days Feeling afraid as if something awful might happen: 1 = Several days Total CLEM-7 score (0-4 normal; 5-9 mild; 10-14 moderate; 15-21 severe): 10 Source: Developed by Drs. Eliazar Ross, Taina Fish, Stephen Abarca and colleagues, with an educational susie from [employer]. Review of Systems Const Details: As per HPI. Physical exam (Primary Care) Vital Signs: Last Vital Signs Temp 97.3 F 04/09/25 09:18 Pulse 59 04/09/25 09:18 BP 130/90 H 04/09/25 09:18 Pulse Ox 96 04/09/25 09:18 Oxygen Delivery Method Room Air 04/09/25 09:18 BMI result Body Mass Index 31.7 Tobacco/Smoking Status: Tobacco use Status Tobacco use date assessed 04/09/25 04/09/25 09:28 Patient Tobacco Use Status Current someday Tobacco 04/09/25 09:28 Tobacco use type Cigarette 04/09/25 09:28 e-Cigarette/Vaping Use Never Used 04/09/25 09:28 PHQ-9: PHQ-9 Score PHQ-9: Total score 10 04/09/25 10:04 Depression Screening Interpretation: Positive (Takes Wellbutrin, follows with therapy. ) Depression Screening Follow-up: Existing condition and In treatment Thrive Assessment: Date of Thrive Assessment Date Thrive assessed 04/09/25 04/09/25 09:28 Currently or been in a relationship where the following occur: No concerns reported Const Other: Pertinent findings are in BOLD GENERAL APPEARANCE NAD, activity normal for age, well developed/ well nourished, no cyanosis, pallor, or diaphoresis. EYES lids/conjunctiva normal. EARS/NOSE/THROAT Mucous membranes moist, nares normal, lips/teeth normal uvula midline without oral pharyngeal erythema, exudate or swelling TMs normal bilaterally. No lymphangitis/lymphedema. HEAD/NECK normocephalic atraumatic, no facial trauma, neck is supple. RESPIRATORY respiratory effort normal, speaks in full sentences, no tripod position, no accessory muscle use. Lungs clear to auscultation without rhonchi, wheezes, rales CARDIAC Regular rate and rhythm, no edema. ABDOMINAL Soft, ND/NT. No evidence of fluid wave. No pulsatile masses on exam, rebound tenderness, Amato sign or pain over Mcburney's point. MUSCLES/EXTREMITIES No abnormal range of motion, no swelling. Bilateral knee clicking. SKIN Warm, pink and dry. No rashes, dermatoses, petechiae or lesions. No bruises on exam today. NEUROLOGICAL Speech is clear and appropriate. Normal level of consciousness. Gait and coordination are normal. 5/5 strength in all extremities. PSYCH Normal mood and affect. Judgement/competence is appropriate Coding Level of Care Code Est Pt Level 3 (60583) Est Pt Prev Care 40-64y(88459) Diagnoses Bruising T14.8XXA Healthcare maintenance Z00.00 Blurry vision H53.8 Abnormal LFTs R79.89 Current moderate episode of major depressive disorder, unspecified whether recurrent F32.1 Depression Type: major depressive disorder Major depression recurrence: unspecified whether recurrent Active/Remission status: currently active Major depression episode severity: moderate Urinary hesitancy R39.11 Constipation, unspecified constipation type K59.00 Constipation type: unspecified constipation type Osteochondritis M93.90 Time Spent (min) 45 Assessment & Plan Assessment & Plan (1) Bruising: Code(s): T14.8XXA - Other injury of unspecified body region, initial encounter Category: Medical Plan: - The patient reports a new onset of waking with painful bruises without trauma. - Additional labs will be ordered today to investigate this issue. PT- PTT- INR - If the labs are normal and the problem persists, a referral to a observer electrical prospecting will be considered. - New problem addressed with physical. (2) Healthcare maintenance: Code(s): Z00.00 - Encounter for general adult medical examination without abnormal findings Category: Medical Plan: CBC, CMP, Lipid panel, A1C, TSH w T4, vit D. Ordered today. Shingles 2 doses when >50 yo. Discuss at 50. COVID: two doses. Declined. Pneumococcal: >50 yo. 18-49 with CKD, lung disease, weakened immune system, Heart disease, DM, cochlear implant. Not indicated. Flu vaccine: Declined. Tdap: every 10 years. Declined. Colonoscopy: 45-75. Ordered. AAA: 65 -75. Not indicated. CT lun - 80. Not indicated. PSA: 50 -70 every two years. At 50. HIV: Ordered today. HCV: Ordered today. (3) Blurry vision: Code(s): H53.8 - Other visual disturbances Category: Medical Plan: - The patient reports intermittent blurry vision and issues with his new glasses. - He was advised to contact his eye doctor to address the problem with his current glasses. - His next scheduled appointment with the eye doctor is in July of next year. This problem is new addressed with physical. (4) Abnormal LFTs: Code(s): R79.89 - Other specified abnormal findings of blood chemistry Category: Medical Plan: - The patient's liver enzymes (AST 52, ALT 72) were elevated on labs from July 2024. - The patient is under the care of a GI specialist, who has already ordered a panel of labs. - Advised the patient complete the pending labs ordered by the GI specialist. - He will follow up with his GI specialist on May 03 and has a scheduled ultrasound on May 13. (5) Depression: Code(s): F32.9 - Major depressive disorder, single episode, unspecified Category: Medical Qualifiers: Depression Type: major depressive disorder Major depression recurrence: unspecified whether recurrent Active/Remission status: currently active Major depression episode severity: moderate Qualified Code(s): F32.1 - Major depressive disorder, single episode, moderate Plan: - The patient is managing stress with bupropion, which he reports is helpful. - He will continue his current medications, including bupropion and hydroxyzine for anxiety. - He is encouraged to continue follow-up with his therapist. (6) Urinary hesitancy: Code(s): R39.11 - Hesitancy of micturition Category: Medical (7) Constipation: Code(s): K59.00 - Constipation, unspecified Category: Medical Qualifiers: Constipation type: unspecified constipation type Qualified Code(s): K59.00 - Constipation, unspecified Plan: - Chronic Constipation: Continue current regimen with Trulance and MiraLax. (8) Osteochondritis: Code(s): M93.90 - Osteochondropathy, unspecified of unspecified site Category: Medical Plan: - Osteochondritis of the knee: Continue follow-up with his health care law specialist. Plan I reviewed the patient's medical history and current concerns during this annual exam. We discussed his elevated liver enzymes from July and noted he is being followed by a GI specialist. I advised him to complete the pending labs that his GI specialist ordered before his upcoming appointment on May 03. Regarding his new complaint of easy bruising, I explained that we will get PT, PTT, INR to investigat the cause. I informed him that if the labs are unremarkable and the issue continues, a referral to a observer electrical prospecting would be the next step. We discussed health maintenance, including the recommendation for a screening colonoscopy now that he is 44, and a referral will be placed. I also discussed vaqccines which he declined. I advised him to follow up with his designated primary care provider in six months. I recommended he continue his current medications for mental health and constipation, and to continue follow-up with his specialists for his knee and liver issues. Orders: Orders Prothrombin Time INR Today T14.8XXA - Other injury of unspecified body region, initial encounter Hemoglobin A1c Today Z00.00 - Encounter for general adult medical examination without abnormal findings Hepatitis C Antibody Reflex Today Z00.00 - Encounter for general adult medical examination without abnormal findings TSH reflex Free T4 Today Z00.00 - Encounter for general adult medical examination without abnormal findings Mixing Study (PT/PTT) Today T14.8XXA - Other injury of unspecified body region, initial encounter Lipid Panel Today Z00.00 - Encounter for general adult medical examination without abnormal findings HIV Ab/Ag Today Z00.00 - Encounter for general adult medical examination without abnormal findings Vitamin D 25-OH Total Today Z00.00 - Encounter for general adult medical examination without abnormal findings Referrals Open Access Screening Colonoscopy Referral Z12.11 - Encounter for screening for malignant neoplasm of colon, Z12.12 - Encounter for screening for malignant neoplasm of rectum
[2025-04-09 09:18] VITALS: BP 130/90; PULSE 59; TEMP 36.3; O2SAT 96; BMI 31.7
== END 2025-04-09 10:08 | disposition home or self-care (01) ==
LOC: HO.HMCH 09:03
PROVIDERS: Visit Provider Internal Medicine
DX: Z00.00 Encounter for general adult medical examination without abnormal findings (principal); R79.89 Other specified abnormal findings of blood chemistry; F32.1 Major depressive disorder, single episode, moderate; H53.8 Other visual disturbances; R39.11 Hesitancy of micturition; K59.00 Constipation, unspecified; T14.8XXA Other injury of unspecified body region, initial encounter; M93.90 Osteochondropathy, unspecified of unspecified site

== ENCOUNTER 2025-05-03 14:59 | Outpatient (REF) | payer OTHER, SELFPAY ==
[2025-05-03 15:41] LABS: MANUAL DIFF FLAG NO
[2025-05-03 17:07] LABS: Hematocrit 46.4 % (42.0-52.0); Hemoglobin 15.5 g/dl (14.0-18.0); Imm Gran Abs Auto 0.01 X10*3/uL (0.00-0.03); Imm Gran Pct Auto 0.2 % (0.0-0.4); Lymphocytes Absolute Auto 1.4 X10*3/uL (1.2-4.9); Mean Corpuscular HGB Conc 33.4 g/dl (31.0-36.0); Mean Corpuscular Hemoglobin 29.8 pg (27.0-33.0); Mean Corpuscular Volume 89.1 fL (80.0-98.0); NRBC Abs Auto 0.000 X10*3/uL (0.0-0.012); NRBC Pct Auto 0.0 /100WBC (0.0-0.2); Platelet Count 248 X10*3/uL (160-400); Red Blood Count 5.21 X10*6/uL (4.60-5.80); White Blood Count 5.5 X10*3/uL (4.8-10.8)
[2025-05-03 17:39] LABS: Alanine Aminotransferase 79 U/L (0-40); Albumin Level 4.5 g/dL (3.5-5.0); Alkaline Phosphatase 96 U/L (39-117); Anion Gap 13 (12-20); Aspartate Amino Transferase 65 U/L (5-37); Blood Urea Nitrogen 9 mg/dL (9-16); Calcium 9.1 mg/dL (8.4-10.2); Carbon Dioxide 25 mmol/L (22-29); Chloride 106 mmol/L (96-108); Estimated Glomerular Filt Rate > 60; Potassium 3.6 mmol/L (3.3-5.1); Sodium 140 mmol/L (135-145); Total Protein 7.4 g/dL (6.5-8.0)
[2025-05-04 04:41] LABS: HBS Num1 0.00 mIU/mL (0-7.99); HBc Num1 0.05 S/CO (0.00-0.79); HBsAGNum1 0.30 S/CO (0.00-0.99); Hepatitis A Antibody IgM 0.17 Index (0-0.79); Hepatitis B Surface Antigen Negative (Negative); ~HepC Num1 0.11 S/CO (0.00-0.79); ~Hepatitis A Antibody IgM Nonreactive (Nonreactive); ~Hepatitis B Surface Antibody NONREACTIVE (Nonreactive); ~Hepatitis C Antibody Nonreactive (Nonreactive)
[2025-05-04 12:57] LABS: Anti Nuclear Antibody Screen NEGATIVE (NEGATIVE)
== END 2025-05-03 15:00 | disposition home or self-care (01) ==
LOC: HO.LAB 14:59
PROVIDERS: Visit Provider Internal Medicine Gastroenterology
DX: K75.81 Nonalcoholic steatohepatitis (NASH) (principal); R79.89 Other specified abnormal findings of blood chemistry; F10.10 Alcohol abuse, uncomplicated; R79.82 Elevated C-reactive protein (CRP); Z01.84 Encounter for antibody response examination; Z11.59 Encounter for screening for other viral diseases
CPT/HCPCS: 36415; 80053; 81596; 82103; 85025; 86038; 86381; 86704; 86706; 86709; 86803; 87340; 99212

== ENCOUNTER 2025-05-03 14:59 | Outpatient (AMB) | payer OTHER, SELFPAY ==
--- NOTE | 2025-05-03 15:03 | A.OFFVIS_ITS ---
Vital Signs 05/03/25 15:05 Height 5 ft 9 in Weight 202 lb 13.204 oz BMI 29.9 BP 125/80 Blood Pressure Location Lt brachial Position Sitting Pulse 72 Intake Visit Reasons: 5m Intake Note: Samuel presents in the office as a 5 month follow up. CC: States that he has a colo coming up - no concerns today. Appetite has been low and not eating very much. 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: No Allergies No Known Allergies (No Known Allergies*) Allergy (Verified 05/03/25 15:06) HPI HPI 5m: Details: 45 yr old m here for f/u for RECAP: HE had EGD and Colonoscopy 06/19 Endoscopy Findings: schatzki ring hiatal hernia erosive esophagitis gastritis erosive duodenitis Colonoscopy Findings: internal hemorrhoids diverticular disease repeat EGD 09/17 possible barretts schatzki ring hiatal hernia lax LES path:mild inflammation GEJ, no barretts INTERIM: he is drinking heavy twice a week appetite is not the same he is stressed trulance still helping constipation eats more at home no drug use smokes when drinks EXAM: GENERAL: The patient is well developed and nontoxic. VITAL SIGNS:see workflow HEENT: Nonicteric sclerae, PERRLA, EOMI. Oropharynx clear. Moist mucous membranes. Conjunctivae appear well perfused. No thyroid mass. CHEST: Chest wall is nontender. HEART: Regular rate and rhythm without murmurs. LUNGS: Clear to auscultation bilaterally. ABDOMEN: Soft, positive bowel sounds, tender epigastrium, no organomegaly.no flank tenderness SKIN: No rash, no excessive bruising, petechiae, or purpura. NEUROLOGIC: Cranial nerves II-XII intact without motor/sensory deficit. Psych: normal affect injured knee, using stick A/P: 1/ Constipation and diverticulosis --on trulance 2/ GERD- better with medication 3/ abn LFT< prob from alcohol use, may have KELLY, may also have alcoholic gastritis PLAN: 1/ cont with trulance 2/ cont with pantoprazole--add carafate -advised on alcohol abstinence 3/ US liver--coming up 4/ check labs and serologies, never went last time [facility] Medical History Anxiety Sleep apnea Diverticulitis Shortness of breath GERD (gastroesophageal reflux disease) Alcohol abuse Depression Surgical History H/O colonoscopy History of esophagogastroduodenoscopy (EGD) History of wisdom tooth extraction History of left knee surgery History of umbilical hernia repair Family History Mother Mental health disorder Substance use disorder Father Mental health disorder Substance use disorder Social History Housing: Apartment Are you a primary early breastfeeding care specialist to a significant other at home: No Do you presently have visiting nurse or other home services: No Alcohol intake: current Alcohol intake frequency: a few times a week Comment: Has bad Knee Patient Tobacco Use Status: Current someday Tobacco user Tobacco use type: Cigarette Cigarettes Per Day: 5 e-Cigarette/Vaping Use: Never Used Second Hand Smoke Exposure: Yes service: No Current occupational status: unemployed Cognitive needs: No Hearing needs: No Vision needs: No Physical Exam Vital Signs: Last Vital Signs Pulse 72 05/03/25 15:05 BP 125/80 05/03/25 15:05 BMI result Body Mass Index 29.9 Assessment & Plan Assessment & Plan (1) Abnormal LFTs: Code(s): R79.89 - Other specified abnormal findings of blood chemistry Category: Medical Plan: as above Medications: New sucralfate 1 g PO BID 60 tabs 0RF Coding Level of Care Code Est Pt Level 4 (77518) Diagnoses Abnormal LFTs R79.89
[2025-05-03 15:05] VITALS: BP 125/80; PULSE 72; BMI 29.9
== END 2025-05-03 15:23 | disposition home or self-care (01) ==
LOC: HO.HGI 15:00
PROVIDERS: Visit Provider Internal Medicine Gastroenterology
DX: R79.89 Other specified abnormal findings of blood chemistry (principal)
CPT/HCPCS: 99214

== ENCOUNTER 2025-05-12 10:54 | Outpatient (AMB) | payer OTHER, SELFPAY ==
[2025-05-12 11:05] VITALS: BP 126/60; PULSE 67; TEMP 36.9; O2SAT 98; BMI 29.8
--- NOTE | 2025-05-12 11:05 | AM.OFFWIN_ITS ---
Intake Vital Signs 05/12/25 11:05 Height 5 ft 9 in Weight 202 lb BMI 29.8 BP 126/60 Blood Pressure Location Rt brachial Position Sitting Pulse 67 Pulse Source Pulse Oximeter Temp 98.4 F Temp Source Oral Pulse Oximetry (%) 98 Oxygen Delivery Method Room Air Intake Visit Reasons: EP Runny nose, cough, phlegm, SOB Intake Note: Patient presents c/o cough, chest/sinus congestion, SOB, hot/cold chills x1-2 weeks Patient Tobacco Use Status: Current someday Tobacco user Allergies No Known Allergies (No Known Allergies*) Allergy (Verified 05/12/25 11:08) Do you need a note to return to daycare/school/sports/work: No HPI HPI Comments History of Present Illness Details History of Present Illness - The patient is a 45 year old male pres enting with cough, chest congestion, post-nasal drip, and body aches. - His symptoms have been ongoing for mor e than a week. - He reports a cough productive of green phlegm. - He denies any nausea or vomiting. - He has been self-treating his symptoms with Robitussin. - He has a history of smoking but has no t smoked recently. - He has no history of asthma. - Someone at home has been diagnosed wit h Respiratory Syncytial Virus (RSV). - He denies chest pain, abd pain, n/v/d, or sore throat. Physical Exam General: Cooperative, healthy appearing, comfortable, no acute distress and well developed Orientation: Patient oriented x3 Limitations: No limitations Head: Normal to inspection Ears: Hearing grossly normal bilaterally. Bulging TM and erythema noted on the right, no discharge noted. Nose: Normal external nose present, nasal drip noted Face and sinus: Normal facial exam. No sinus tenderness noted. Eyes: Appearance normal, both eyes and all related structures Neck: Normal visual inspection and Yes full ROM Respiratory: Normal respiratory effort and able to speak in complete sentences. Clear to auscultation bilaterally. No w/r/r noted. Cardiovascular: Regular rate and rhythm. Normal S1 and S2. No m/r/g noted. GI: Normal to inspection. Soft to palpation and nontender Skin: No rashes or lesions noted Patient was informed and verbally consented to the use of an ambient scribe for clinic note documentation during this visit. [facility] Medical History Anxiety Sleep apnea Diverticulitis Shortness of breath GERD (gastroesophageal reflux disease) Alcohol abuse Depression Surgical History H/O colonoscopy History of esophagogastroduodenoscopy (EGD) History of wisdom tooth extraction History of left knee surgery History of umbilical hernia repair Family History Mother Mental health disorder Substance use disorder Father Mental health disorder Substance use disorder Social History Housing: Apartment Are you a primary primary care physician to a significant other at home: No Do you presently have visiting nurse or other home services: No Alcohol intake: current Alcohol intake frequency: a few times a week Comment: Has bad Knee Patient Tobacco Use Status: Current someday Tobacco user Tobacco use type: Cigarette Cigarettes Per Day: 5 e-Cigarette/Vaping Use: Never Used Second Hand Smoke Exposure: Yes service: No Current occupational status: unemployed Cognitive needs: No Hearing needs: No Vision needs: No Review of Systems Const All systems reviewed & are unremarkable except as noted in HPI and below Physical Exam Vital Signs: Last Vital Signs Temp 98.4 F 05/12/25 11:05 Pulse 67 05/12/25 11:05 BP 126/60 05/12/25 11:05 Pulse Ox 98 05/12/25 11:05 Oxygen Delivery Method Room Air 05/12/25 11:05 BMI result Body Mass Index 29.8 Assessment & Plan Assessment & Plan (1) Cough: Code(s): R05.9 - Cough, unspecified Qualifiers: Cough type: acute Qualified Code(s): R05.1 - Acute cough (2) Otitis media: Code(s): H66.90 - Otitis media, unspecified, unspecified ear Qualifiers: Otitis media type: suppurative Chronicity: acute Laterality: right Spontaneous tympanic membrane rupture: without spontaneous rupture Recurrence: non-recurrent Qualified Code(s): H66.001 - Acute suppurative otitis media without spontaneous rupture of ear drum, right ear Plan Most likely OM vs covid vs flu vs RSV vs viral illness plan - The patient was diagnosed with an ear infection based on exam findings of redness and swelling. - A swab for RSV, influenza and COVID-19 will be performed. - The patient will be prescribed antibiotics, which will provide treatment for the ear infection. - Cough medicine will also be prescribed. - The patient will be notified of the swab results via phone call. - tylenol or motrin as needed for pain - follow up with PCP Orders: Orders SARS-CoV2/FLU/RSV Today R09.89 - Other specified symptoms and signs involving the circulatory and respiratory systems Medications: New amoxicillin-pot clavulanate 875-125 mg 1 tab PO Q12H 14 tabs 0RF benzonatate 100 mg PO bid-tid PRN 21 caps 0RF Cough 7 days Coding Level of Care Code Est Pt Level 3 (30305) Diagnoses Acute cough R05.1 Cough type: acute Non-recurrent acute suppurative otitis media of right ear without spontaneous rupture of tympanic membrane H66.001 Otitis media type: suppurative Chronicity: acute Laterality: right Spontaneous tympanic membrane rupture: without spontaneous rupture Recurrence: non-recurrent
== END 2025-05-12 12:01 | disposition home or self-care (01) ==
PROVIDERS: Visit Provider Physician Assistant Medical
DX: R05.1 Acute cough (principal); H66.001 Acute suppurative otitis media without spontaneous rupture of ear drum, right ear

== ENCOUNTER 2025-05-12 10:54 | Outpatient (REF) | payer OTHER, SELFPAY ==
[2025-05-12 15:15] LABS: Resp Syncy Virus RNA Qual PCR NEGATIVE (Negative); SARS COV2 PCR INHOUSE POSITIVE (Negative)
== END 2025-05-12 10:55 | disposition home or self-care (01) ==
LOC: HO.LNP 10:54
PROVIDERS: Physician Assistant Medical
DX: R05.1 Acute cough (principal); H66.001 Acute suppurative otitis media without spontaneous rupture of ear drum, right ear; R09.89 Other specified symptoms and signs involving the circulatory and respiratory systems
CPT/HCPCS: 87637; 99212